=== PATIENT | male | born 1960 | race Caucasian/White ===

== ENCOUNTER → 2017-01-09 | Outpatient (CLI) | payer OTHER, BC ==
[~2017-01-09] MED LIST: ASCO1CAP3 PO; CHOL20009 PO; CYAN100020 PO; FLX10 PO; GABA-112 PO; GLC/500 PO; LOSA100T2 PO; LSN/10125 PO; MULT-506 PO; OXYC15TA49 PO
[2017-01-09 13:03] LABS: ALT/SGPT 30 U/L (12-78); BLOOD UREA NITROGEN 19 mg/dl (7-18); BUN/CREATININE RATIO 17.4 (10-20); CALCIUM 9.1 mg/dl (8.5-10.1); CARBON DIOXIDE 26 mmol/L (21-32); CHLORIDE 104 mmol/L (98-107); CHOLESTEROL 163 mg/dl (0-200); GLUCOSE 97 mg/dl (70-99); POTASSIUM 3.9 mmol/L (3.5-5.1); SODIUM 141 mmol/L (136-145); TRIGLYCERIDES 193 mg/dl (0-150); VERY LOW DENSITY LIPOPROT CALC 39 mg/dl
[2017-01-09 13:14] LABS: ALB/GLOB RATIO 1.2 (0.9-2); ALKALINE PHOSPHATASE 132 U/L (45-117); AST/SGOT 20 U/L (15-37); CHOLESTEROL/HDL RATIO 4.4; HDL CHOLESTEROL 37 mg/dl; LDL CHOLESTEROL CALCULATED 87 mg/dl; PROSTATE SPECIFIC ANTIGEN 0.593 ng/ml (0.000-4.000)
[2017-01-09 13:15] LABS: ESTIMATED AVERAGE GLUCOSE 103 mg/dl; HA1C FLAG Normal (Normal)
[2017-01-09 15:18] LABS: LYME DISEASE AB IGG NEG (NEG); LYME DISEASE AB IGM NEG (NEG)
== END | disposition home or self-care (01) ==
LOC: C.LABBFT 07:32
PROVIDERS: ATTEND Nurse Practitioner
DX: Z00.00 Encounter for general adult medical examination without abnormal findings (principal); M25.569 Pain in unspecified knee; E07.9 Disorder of thyroid, unspecified; R73.01 Impaired fasting glucose; Z12.5 Encounter for screening for malignant neoplasm of prostate

== ENCOUNTER → 2017-03-04 | Day surgery (SDC) | payer BC, OTHER ==
[2017-02-19 07:34] VITALS: BMI 37.0
[~2017-03-04] VITALS: Ht 188 cm; Wt 129.6 kg
[~2017-03-04] MED LIST changes: -FLX10 PO; +LIDOCAINE HCL 2% 2 ML VIAL (20MG/ML) ONE; -LSN/10125 PO; +MIDAZOLAM HCL 1 MG/ML 2ML VIAL ONE; +ONDANSETRON INJ 2 MG/ML 2 ML VIAL ONE; -OXYC15TA49 PO; +PROPOFOL IV EMULSION 10 MG/ML 20 ML VIAL IV ONE; +SODIUM CHLORIDE 0.9% 500ML 500 ML IV ONE
[2017-03-04 10:10] VITALS: Ht 188 cm; Wt 129.6 kg
--- NOTE | 2017-03-04 10:33 | Endo History and Physical ---
History & Physical Date of Service: Mar 04, 2017. Chief Complaint: screening Referring Physician: Regine RAMIREZ History of Present Illness 57 yo CM who presents for screening colonoscopy. Past Surgical History Hx Cardiac Surgery: No Hx Abdominal Surgery: No Hx Post-Op Nausea and Vomiting: No Hx Cancer Surgery: No Hx Thoracic Surgery: No Hx Orthopedic: Yes (RT CTR, LUMBAR DECOMP. FUSION X 2) Hx Urinary Tract Surgery: No Family History Colon CA Social History Smoking Status: Never Smoker Hx Substance Use: No Hx Alcohol Use: Yes (OCCASSIONALLY) Allergies Coded Allergies: Celecoxib (Verified Adverse Reaction, Mild, GI SYMPTOMS, 02/19/17) Current Medications Reported Home Medications Medications Dose Route/Sig Max Daily Dose Days Date Category Vitamin B12 (Cyanocobalamin) 1,000 Mcg Tab 1 Tab PO QAM 02/19/17 Reported Vitamin D (Cholecalciferol) 2,000 Unit Tab 1 Tab PO QAM 02/19/17 Reported Vitamin C (Ascorbic Acid) 500 Mg Cap 1 Cap PO QAM 02/19/17 Reported Neurontin (Gabapentin) 100 Mg Cap 100 Mg PO HS PRN 02/19/17 Reported Glucophage (Metformin Hcl) 500 Mg Tab 500 Mg PO QPM 02/19/17 Reported Glucophage (Metformin Hcl) 500 Mg Tab 2 Tab PO QAM 02/19/17 Reported Hyzaar (Losartan Potassium & Hydrochlo) 1 Tab Tab 1 Tab PO QAM 90 02/19/17 Reported Vital Signs Weight (Kilograms): 129.55 Height (Feet): 6 Height (Inches): 2 Date Time Temp Pulse Resp B/P Pulse Ox O2 Delivery O2 Flow Rate FiO2 03/04/17 10:21 37.4 83 20 120/78 95 Room Air Physical Exam General Appearance: WD/WN, no apparent distress Respiratory/Chest: Auscultation: breath sounds normal Cardiovascular: Heart Auscultation: RRR Abdomen: Bowel Sounds: normal Inspection & Palpation: soft, non-distended, no tenderness, guarding & rebound Assessment and Plan Assessment: 57 yo CM who presents for screening colonoscopy. Plan: Proceed with colonoscopy.
--- NOTE | 2017-03-04 11:17 | GI REPORT ---
Procedure Date: 03/04/2017 10:47 AM Procedure: Colonoscopy Indications: Screening for colorectal malignant neoplasm Medicines: Monitored Anesthesia Care Complications: No immediate complications. Estimated Blood Loss: Estimated blood loss: none. Procedure: Pre-Anesthesia Assessment: - Prior to the procedure, a History and Physical was performed, and patient medications and allergies were reviewed. The patient's tolerance of previous anesthesia was also reviewed. The risks and benefits of the procedure and the sedation options and risks were discussed with the patient. All questions were answered, and informed consent was obtained. Prior Anticoagulants: The patient has taken no previous anticoagulant or antiplatelet agents. ASA Grade Assessment: II - A patient with mild systemic disease. After reviewing the risks and benefits, the patient was deemed in satisfactory condition to undergo the procedure. After I obtained informed consent, the scope was passed under direct vision. Throughout the procedure, the patient's blood pressure, pulse, and oxygen saturations were monitored continuously. The scope was introduced through the anus and advanced to the terminal ileum. The colonoscopy was performed without difficulty. The patient tolerated the procedure well. The quality of the bowel preparation was good. The terminal ileum, ileocecal valve, appendiceal orifice, and rectum were photographed. Findings: A 4 mm polyp was found in the ascending colon. The polyp was sessile. The polyp was removed with a cold snare. Resection and retrieval were complete. Multiple small-mouthed diverticula were found in the sigmoid colon. Non-bleeding internal hemorrhoids were found during retroflexion. The hemorrhoids were small. Impression: - One 4 mm polyp in the ascending colon, removed with a cold snare. Resected and retrieved. - Diverticulosis in the sigmoid colon. - Non-bleeding internal hemorrhoids. Recommendation: - Resume previous diet. - Continue present medications. - Repeat colonoscopy for surveillance based on pathology results. - Return to primary care physician as previously scheduled. Vincent Carrillo DO 03/04/2017 11:16:01 AM This report has been signed electronically. Note Initiated On: 03/04/2017 10:47 AM I attest to the content of the Intraoperative Record and orders documented therein, exceptions below
--- NOTE | 2017-03-04 11:17 | Discharge Instructions ---
Endoscopy Patient Instructions Date / Procedure(s) Performed Mar 04, 2017. Colonoscopy Allergy Information Coded Allergies: Celecoxib (Verified Adverse Reaction, Mild, GI SYMPTOMS, 02/19/17) Discharge Date / Findings Mar 04, 2017. Colon polyp Diverticulosis Internal hemorrhoids Medication Instructions Stopped Medication(s): stopped metformin 3 days ago OK to resume all medications today Reported Home Medications Medications Dose Route/Sig Max Daily Dose Days Date Category Vitamin B12 (Cyanocobalamin) 1,000 Mcg Tab 1 Tab PO QAM 02/19/17 Reported Vitamin D (Cholecalciferol) 2,000 Unit Tab 1 Tab PO QAM 02/19/17 Reported Vitamin C (Ascorbic Acid) 500 Mg Cap 1 Cap PO QAM 02/19/17 Reported Neurontin (Gabapentin) 100 Mg Cap 100 Mg PO HS PRN 02/19/17 Reported Glucophage (Metformin Hcl) 500 Mg Tab 500 Mg PO QPM 02/19/17 Reported Glucophage (Metformin Hcl) 500 Mg Tab 2 Tab PO QAM 02/19/17 Reported Hyzaar (Losartan Potassium & Hydrochlo) 1 Tab Tab 1 Tab PO QAM 90 02/19/17 Reported Provider Instructions Activity Restrictions - No exercising or heavy lifting for 24 hours. - Do not drink alcohol the day of the procedure. - Do not drive a car or operate machinery until the day after the procedure. - Do not make any important decisions or sign important papers in 24 hours after the procedure. Following Day: - Return to full activity which may include returning to work/school. Diet Start your diet with liquids and light foods (jello, soup, juice, toast). Then eat your usual diet if not nauseated. Treatment For Common After Affects For mild abdominal pain, bloating, or excessive gas: - Rest - Eat lightly - Lie on right side Follow-Up Information Follow-up with Regine RAMIREZ as scheduled Anesthesia Information What You Should Know You have had a procedure that required some medicine to reduce anxiety and discomfort. This treatment is called moderate sedation. After receiving the treatment, you may be sleepy, but you will be able to breathe on your own. The effects of the treatment may last for several hours. Follow these instructions along with Activity/Diet recommendations noted above: * Do NOT do anything where dizziness or clumsiness would be dangerous. * Rest quietly at home today, then you can be up and about tomorrow. * Have a responsible person stay with you the rest of today. * You may have had an I.V. today. If so, you may take the dressing off later today. Recommendations Call your doctor if: * Trouble breathing * Continuous vomiting for more than 24 hours * Temperature above 101 degrees * Severe abdominal pain or bloating * Pain not relieved by pain medicine ordered * There is increased drainage or redness from any incision * A large amount of rectal bleeding greater than 2-3 tablespoons. (If you had a polyp/s removed or have hemorrhoids, a small amount of blood - from the rectum is to be expected.) * You have any unanswered questions or concerns. IN THE EVENT OF A SERIOUS EMERGENCY, GO TO THE NEAREST EMERGENCY ROOM Your discharge instructions were prepared by provider Vincent Carrillo. Patient Instructions Signature Page Loyd Allen Patient (or Guardian) Signature/Date: I have read and understand the instructions given to me by my caregivers. Caregiver/RN/Doctor Signature/Date: The above-named patient and/or guardian has received patient instructions on this date. + Original Patient Signature Page (only) stays with chart. Please make copy for patient.
--- NOTE | 2017-03-04 11:22 | Anesthesiology Progress Note ---
Anesthesia Post Op Note Date & Time Mar 04, 2017 at 11:22 Vital Signs Pain Intensity: 0 Vital Signs Past 12 Hours Date Time Temp Pulse Resp B/P Pulse Ox O2 Delivery O2 Flow Rate FiO2 03/04/17 11:17 92 16 116/77 93 Room Air 03/04/17 10:21 37.4 83 20 120/78 95 Room Air Notes Mental Status: alert / awake / arousable, participated in evaluation Pt Amnestic to Procedure: Yes Nausea / Vomiting: adequately controlled Pain: adequately controlled Airway Patency, RR, SpO2: stable & adequate BP & HR: stable & adequate Hydration State: stable & adequate Anesthetic Complications: no major complications apparent Pt doing well.
[2017-03-04 11:47] VITALS: BP 111/84; PULSE 74; O2SAT 94
== END | disposition home or self-care (01) ==
LOC: C.GI 09:50
PROVIDERS: ATTEND Internal Medicine
DX: Z12.11 Encounter for screening for malignant neoplasm of colon (principal); D12.2 Benign neoplasm of ascending colon; K57.30 Diverticulosis of large intestine without perforation or abscess without bleeding; K64.8 Other hemorrhoids; Z98.1 Arthrodesis status; Z88.8 Allergy status to other drugs, medicaments and biological substances

== ENCOUNTER → 2017-07-16 | Outpatient (CLI) | payer OTHER ==
[~2017-07-16] MED LIST changes: -LIDOCAINE HCL 2% 2 ML VIAL (20MG/ML) ONE; -MIDAZOLAM HCL 1 MG/ML 2ML VIAL ONE; -ONDANSETRON INJ 2 MG/ML 2 ML VIAL ONE; -PROPOFOL IV EMULSION 10 MG/ML 20 ML VIAL IV ONE; -SODIUM CHLORIDE 0.9% 500ML 500 ML IV ONE
[2017-07-16 12:34] LABS: ALT/SGPT 32 U/L (12-78); BLOOD UREA NITROGEN 15 mg/dl (7-18); CALCIUM 9.4 mg/dl (8.5-10.1); CARBON DIOXIDE 29 mmol/L (21-32); CHLORIDE 104 mmol/L (98-107); CHOLESTEROL 178 mg/dl (0-200); GLUCOSE 99 mg/dl (70-99); POTASSIUM 3.8 mmol/L (3.5-5.1); SODIUM 139 mmol/L (136-145); TRIGLYCERIDES 316 mg/dl (0-150); VERY LOW DENSITY LIPOPROT CALC 63 mg/dl
[2017-07-16 12:37] LABS: ALB/GLOB RATIO 1.2 (0.9-2); ALKALINE PHOSPHATASE 106 U/L (45-117); AST/SGOT 21 U/L (15-37); CHOLESTEROL/HDL RATIO 5.2; HDL CHOLESTEROL 34 mg/dl; LDL CHOLESTEROL CALCULATED 81 mg/dl
[2017-07-16 12:50] LABS: ESTIMATED AVERAGE GLUCOSE 108 mg/dl; HA1C FLAG Normal (Normal)
== END | disposition home or self-care (01) ==
LOC: C.LABBFT 07:30
PROVIDERS: ATTEND Nurse Practitioner
DX: E78.5 Hyperlipidemia, unspecified (principal); J34.2 Deviated nasal septum; R73.01 Impaired fasting glucose

== ENCOUNTER → 2018-01-22 | Outpatient (CLI) | payer OTHER ==
[2018-01-22 13:03] LABS: HEMOGLOBIN A1C 5.5 % (4.5-5.6)
[2018-01-22 13:16] LABS: ALBUMIN 4.1 gm/dl (3.4-5.0); ALT/SGPT 50 U/L (12-78); BLOOD UREA NITROGEN 16 mg/dl (7-18); CALCIUM 9.1 mg/dl (8.5-10.1); CARBON DIOXIDE 30 mmol/L (21-32); CHOLESTEROL 155 mg/dl (0-200); CREATININE 1.13 mg/dl (0.60-1.40); GLUCOSE 104 mg/dl (70-99); POTASSIUM 4.1 mmol/L (3.5-5.1); SODIUM 140 mmol/L (136-145)
[2018-01-22 13:26] LABS: ALKALINE PHOSPHATASE 89 U/L (45-117); AST/SGOT 27 U/L (15-37); LDL CHOLESTEROL CALCULATED 72 mg/dl; TOTAL PROTEIN 7.3 gm/dl (6.4-8.2)
== END | disposition home or self-care (01) ==
LOC: C.LABBFT 07:08
PROVIDERS: ATTEND Nurse Practitioner
DX: Z12.5 Encounter for screening for malignant neoplasm of prostate (principal); R73.01 Impaired fasting glucose; E78.5 Hyperlipidemia, unspecified; E07.9 Disorder of thyroid, unspecified

== ENCOUNTER → 2018-07-02 | Outpatient (CLI) | payer OTHER ==
[2018-07-02 12:51] LABS: BLOOD UREA NITROGEN 15 mg/dl (7-18); CALCIUM 8.9 mg/dl (8.5-10.1); CARBON DIOXIDE 27 mmol/L (21-32); CHOLESTEROL 126 mg/dl (0-200); CREATININE 1.15 mg/dl (0.60-1.40); GLUCOSE 107 mg/dl (70-99); LDL CHOLESTEROL CALCULATED 56 mg/dl; POTASSIUM 4.2 mmol/L (3.5-5.1); SODIUM 139 mmol/L (136-145)
== END | disposition home or self-care (01) ==
LOC: C.LABBFT 07:36
PROVIDERS: ATTEND Nurse Practitioner
DX: E78.5 Hyperlipidemia, unspecified (principal)

== ENCOUNTER 2023-07-30 08:43 | Observation (INO) ==
--- NOTE | 2023-07-01 10:33 | PAT Medication Instructions ---
Medication Instructions Date of Service July 01, 2023 Home Medications Medication Instructions Recorded tramadol 50 mg tablet 50 - 100 mg PO Q6H PRN pain #90 05/03/20 tabs amlodipine 5 mg tablet 5 mg PO QAM #90 tabs 12/27/22 indomethacin 50 mg capsule 50 mg PO BID PRN bilateral knee 12/27/22 pain #60 caps levothyroxine 25 mcg tablet 25 mcg PO QAM #90 tabs 12/31/22 losartan 100 1 tab PO QAM #90 tabs 12/31/22 mg-hydrochlorothiazide 25 mg tablet simvastatin 20 mg tablet 20 mg PO HS #90 tabs 01/02/23 dulaglutide 0.75 mg/0.5 mL 0.75 mg (0.5 mL) subcut .COMPLEX 01/23/23 subcutaneous pen injector #12 syringes (Trulicity) tadalafil 5 mg tablet 5 mg PO DAILY PRN sexual activity 01/23/23 #60 tabs cholecalciferol (vitamin D3) 25 mcg (1,000 unit) capsule 1,000 units PO QAM ascorbic acid (vitamin C) 500 mg capsule 500 mg PO QAM tramadol 50 mg tablet 50 - 100 mg PO Q6H PRN amlodipine 5 mg tablet 5 mg PO QAM indomethacin 50 mg capsule 50 mg PO BID PRN levothyroxine 25 mcg tablet 25 mcg PO QAM losartan 100 mg-hydrochlorothiazide 25 mg tablet 1 tab PO QAM simvastatin 20 mg tablet 20 mg PO HS dulaglutide 0.75 mg/0.5 mL subcutaneous pen injector (Trulicity) 0.75 mg (0.5 mL) subcut .COMPLEX tadalafil 5 mg tablet 5 mg PO DAILY PRN metformin 500 mg tablet 1,000 mg PO BID Continue as directed dulaglutide 0.75 mg/0.5 mL subcutaneous pen injector (Trulicity) 0.75 mg (0.5 mL) subcut .COMPLEX ASK your surgeon for instructions indomethacin 50 mg capsule 50 mg PO BID PRN DO NOT take the morning of surgery cholecalciferol (vitamin D3) 25 mcg (1,000 unit) capsule 1,000 units PO QAM ascorbic acid (vitamin C) 500 mg capsule 500 mg PO QAM losartan 100 mg-hydrochlorothiazide 25 mg tablet 1 tab PO QAM tadalafil 5 mg tablet 5 mg PO DAILY PRN metformin 500 mg tablet 1,000 mg PO BID Take morning of surgery With a small sip of water, OTHERWISE NOTHING TO EAT OR DRINK AFTER MIDNIGHT: tramadol 50 mg tablet 50 - 100 mg PO Q6H PRN(if needed) amlodipine 5 mg tablet 5 mg PO QAM levothyroxine 25 mcg tablet 25 mcg PO QAM Take evening before surgery tramadol 50 mg tablet 50 - 100 mg PO Q6H PRN(if needed) simvastatin 20 mg tablet 20 mg PO HS metformin 500 mg tablet 1,000 mg PO BID Other Notes If you have any questions please call us at [phone] or [phone] or [phone] or [phone]
--- NOTE | 2023-07-08 14:14 | Anesthesiology Consultation ---
Date of Service July 08, 2023 Assessment & Plan (1) Encounter for pre-operative examination: - Check BSG AM DOS - COVID screening: Per assessment on 07/08: No known COVID-19 positive contacts or current COVID-19 related symptoms. No recent Covid positive test result. - Outpatient joint assessment: Pt currently scheduled for inpatient pathway. If surgeon requests review for outpatient joint pathway, patient is an acceptable candidate for outpatient joint program from anesthesia standpoint. Chart Review Chart Review: Acceptable Risk for Surgery and Patient seen in Pre Admission Testing Teaching & Discussion Pre-Anesthesia Teaching/Discussion Notes: Instructed NPO after midnight before surgery,except medications with 15 cc of water. Medication instructions provided according to the PAT guidelines. History Surgery Operation Date: 07/30/23 08:50 Proposed Procedures p Left Total Knee Arthroplasty - Andres Rasmussen MD Height/Weight Height: 6 ft 2 in Weight: 137.2 kg Allergies Allergy/AdvReac Type Severity Reaction Status Date / Time celecoxib AdvReac Mild GI SYMPTOMS Verified 06/28/23 08:04 lisinopril AdvReac Mild cough Verified 06/28/23 08:04 Medications Home Medications Medication Instructions Recorded Confirmed Last Taken cholecalciferol (vitamin D3) 25 1,000 units PO QAM 05/07/19 06/28/23 03/18/22 mcg (1,000 unit) capsule ascorbic acid (vitamin C) 500 mg 500 mg PO QAM 07/03/19 06/28/23 03/18/22 capsule tramadol 50 mg tablet 50 - 100 mg PO Q6H PRN pain #90 05/03/20 06/28/23 Unknown tabs amlodipine 5 mg tablet 5 mg PO QAM #90 tabs 12/27/22 06/28/23 Unknown indomethacin 50 mg capsule 50 mg PO BID PRN bilateral knee 12/27/22 06/28/23 Unknown pain #60 caps levothyroxine 25 mcg tablet 25 mcg PO QAM #90 tabs 12/31/22 06/28/23 Unknown losartan 100 1 tab PO QAM #90 tabs 12/31/22 06/28/23 Unknown mg-hydrochlorothiazide 25 mg tablet simvastatin 20 mg tablet 20 mg PO HS #90 tabs 01/02/23 06/28/23 Unknown dulaglutide 0.75 mg/0.5 mL 0.75 mg (0.5 mL) subcut .COMPLEX 01/23/23 06/28/23 Unknown subcutaneous pen injector #12 syringes (Trulicity) tadalafil 5 mg tablet 5 mg PO DAILY PRN sexual activity 01/23/23 06/28/23 Unknown #60 tabs metformin 500 mg tablet 1,000 mg PO BID 06/28/23 06/28/23 Unknown Past Medical History Medical History Achilles tendinitis Acquired deviated nasal septum Arthritis Diverticulosis Dyslipidemia Fatty liver Hypertension Hypothyroidism Internal hemorrhoids Type II diabetes mellitus NIDDM Exercise / Class Metabolic Activity II 4-5 Yardwork/Stairs/Walk up hill (one FS (no CP, no SOB)) Past Family History Family History Grandfather (Maternal) Myocardial infarction Grandfather (Paternal) Colorectal cancer Mother Prediabetes Father Prostate cancer Diabetes Denies family history of Ovarian cancer Coronary heart disease Breast cancer Lung cancer Past Surgical History Surgical History History of carpal tunnel surgery of right wrist History of colonoscopy History of lumbar spinal fusion History of tooth extraction Hx of laminectomy decompression (L5-S1) Past Anesthesia History No Hx of Anesthesia Complications and No Family Hx of Anesthesia Complications History of PONV No Hx of PONV and No Hx of Motion Sickness Social History Smoking Status: Never smoker Do You Dip or Chew Tobacco: No Hx Alcohol Use: Yes Alcohol type: beer and hard liquor alcohol intake frequency: a few times a week Hx Substance Use: No substance use type: does not use Review of Systems Patient denies chest pain, shortness of breath, dyspnea on exertion, fever, chills, cough, wheezing, palpitations. Physical Exam Vital Signs VITALS BP 143/80 P 90 TEMP 98.1 SP02 95%RA RESP 18 PHYSICAL Full cervical extension range of motion. Full TMJ range of motion. TMD 4 finger breaths Mallampati Score 2 Dentition: intact, + implant (right lower side) Lungs: clear throughout to auscultation Cardiac: regular rate and rhythm, no murmurs noted Spine: normal Carotid arteries: negative bruit Extremities: no LE edema Lab Results Anesthesia Preop Results Results Anesthesia Widget: WBC 5.5 Thousand/uL (3.8-10.8) 07/01/23 Hgb 13.4 g/dL (13.2-17.1) 07/01/23 Hct 39.8 % (38.5-50.0) 07/01/23 Plt 177 Thousand/uL (140-400) 07/01/23 Na 141 mmol/L (135-146) 07/01/23 K 4.3 mmol/L (3.5-5.3) 07/01/23 Cl 106 mmol/L (98-110) 07/01/23 CO2 25 mmol/L (20-32) 07/01/23 BUN 14 mg/dL (7-25) 07/01/23 Creat 1.03 mg/dL (0.70-1.35) 07/01/23 Glucose Level 173 mg/dL (65-99) H 07/01/23 PT 10.8 Seconds (9.0-12.0) 07/08/23 PTT 24.3 Seconds (21.0-31.0) 07/08/23 INR 1.0 (0.9-1.1) 07/08/23 HA1c 6.1 % of total Hgb (<5.7) H 07/01/23 Blood Type A Positive 07/08/23 Antibody Screen NEGATIVE 07/08/23 Testing Electrocardiogram Date: 07/08/23 NSR at 80bpm. LAD. LVH with QRS widening. PRWP, consider anterior OK vs lead placement vs LVH. Patient reports good functional status without cardiopulmonary limiting complaints at PAT visit 07/08/23* Chest X-Ray Date: 07/08/23 FINDINGS: PA and lateral chest radiographs are compared to study dated 02/27/2012. The cardiomediastinal silhouette is unremarkable. The lungs and pleural spaces are clear. There is no pneumothorax. The bony thorax appears intact. Mild degenerative change is noted in the spine. IMPRESSION: No active disease in the chest.
[~2023-07-30 08:43] MED LIST changes: +ACETAMINOPHEN 500 MG TAB PO SCH; -ASCO1CAP3 PO; +BUPIVACAINE 0.5 % 5 MG/1 ML PF 10ML VIAL ONE; +BUPIVACAINE LIPOSOME/PF 266 MG, BUPIVACAINE/EPINEPHRINE 50 ML, SODIUM CHLORIDE 0.9% PF ... INFIL SCH; -CHOL20009 PO; -CYAN100020 PO; +CeleBREX 200 MG CAP PO SCH; +FAMOTIDINE 20 MG TAB PO SCH; -GABA-112 PO; -GLC/500 PO; -LOSA100T2 PO; +LR 500ML BOLUS, THEN 15ML/HR IV SCH; +LR 60ML/HR IV SCH; +METOCLOPRAMIDE HCL 10 MG TABLET PO SCH; -MULT-506 PO; +ROPIVACAINE 0.5% 5 MG/ML 30 ML VIAL ONE; +Scopolamine 1 MG TDSY TD SCH; +TRANEXAMIC ACID 1,000 MG **IV Intra-op IV SCH; +dexAMETHasone**PF** 10 MG/ML VIAL IV SCH
[2023-07-30] MEDS ORDERED: fentaNYL citrate PF 100 MCG/2 ML VIAL ONE (10:20)
[2023-07-30] MEDS ORDERED: MIDAZOLAM HCL 1 MG/ML 2ML VIAL ONE ×2 (10:20→11:25)
[2023-07-30] MEDS ORDERED: ePHEDrine sulfate 50 MG/ML AMP IV PRN (10:41)
[2023-07-30] MEDS ORDERED: ONDANSETRON INJ 2 MG/ML 2 ML VIAL IV PRN ×2 (10:41→15:25)
[2023-07-30] MEDS ORDERED: fentaNYL citrate PF 100 MCG/2 ML VIAL IV PRN (10:41)
[2023-07-30] MEDS ORDERED: ATROPINE SULFATE 0.1 MG/ML 10ML SYR IV PRN (10:41)
[2023-07-30] MEDS ORDERED: BUPIVACAINE LIPOSOME 1.3% 266 MG/20 ML VIAL ONE (11:08)
[2023-07-30] MEDS ORDERED: SODIUM CHLORIDE 0.9% PF 50 ML VIAL ONE (11:08)
[2023-07-30] MEDS ORDERED: BUPIVACAINE/EPINEPHRINE 0.25% 1:200,000 30 ML VIAL ONE (11:08)
--- NOTE | 2023-07-30 11:11 | History & Physical Bridge Note ---
Date of Service July 30, 2023 History & Physical Bridge Note I have examined the patient, reviewed the History & Physical and in the interval since the performance of the History & Physical I have noted the following changes of clinical significance: no changes noted
[2023-07-30] MEDS ORDERED: LIDOCAINE 2% 2 ML VIAL/AMP(20MG/ML) INFIL ONE (11:54)
[2023-07-30] MEDS ORDERED: PROPOFOL IV EMULSION 10 MG/ML 20 ML VIAL IV ONE ×2 (11:54→12:08)
[2023-07-30] MEDS ORDERED: ONDANSETRON INJ 2 MG/ML 2 ML VIAL ONE (11:56)
--- NOTE | 2023-07-30 13:19 | Operative Report ---
PG Post Operative Report Pre & Post Diagnosis Operation Date: 07/30/23 10:30 Pre-Op Diagnosis: Left Knee Degenerative Joint Disease Post-Op Diagnosis: Left Knee Degenerative Joint Disease I identified the patient and participated in the time-out.: Yes Procedure Operation Date: 07/30/23 10:30 Actual Procedures p Left Total Knee Arthroplasty(Left) - Andres Rasmussen MD Surgeon Andres Rasmussen MD [employer] Guero Kam PA-C Estimated Blood Loss 50 Findings Consistent with Post-Op Diagnosis Specimens Left knee sent for pathology. Anesthesia Type Spinal MAC Complications none Indications Patient is a 63-year-old fairly active gentleman said a long history of bilateral knee pain and discomfort left side greater than right. He failed all conservative measures. X-rays show advanced left knee DJD. He elected proceed with surgical treatment. Description of Procedure Operative implants consist of: 1 Biomet Vanguard size 75 left Po stabilized femoral component. 2. Biomet size 79 tibial tray. 3. 10 mm post stabilized polyethylene insert. 4. 34 x 8 and half all poly patella. The patient was taken the operating room, identified, placed on the operating table in the supine position. All contact areas were appropriately padded. IV antibiotic provided by anesthesia team. A spinal anesthetic and abductor canal block had provided in the holding area. Left thigh tent was then placed. The left lower extremity was then prepped and draped in usual sterile fashion. The left leg was elevated and exsanguinated with use of an Esmarch and the tourniquet was placed at 300 mmHg. An anterior approach the left knee was then performed to longitudinal incision centered over the patella. Sharp dissection was carried through subcutaneous tissue down the extensor mechanism. A medial parapatellar arthrotomy incision was made. Some subperiosteal dissection was carried out medially. The fat pad was resected from Neath patella tendon. The lateral patellofemoral ligament was released. Patella subluxated laterally knee was flexed. The osteophytes were taken off the distal femur. The ACL and PCL were then released from distal femur and the tibia subluxated anteriorly. The external tibial alignment jig was then placed the interface the tibia and adjusted 14 mm medially. Proximal tibial cut was made to move about a millimeter of bone from most deficient aspect medial tibial plateau. Some osteophytes were taken off medial and posterior medially. The tibia sized to a size 79. Attention drawn the femur. The distal femur examined the sharp drill. Intramedullary canal was suction. A left 6 degree femoral cutting block was placed. Distal femoral cut was made to take an additional 3 mm of bone off distal femur. The femur was then sized to a size 75. The AP cutting block was pinned parallel to the epicondylar axis which was 5 degrees of external rotation. Anterior cut, anterior chamfer, posterior cut, posterior chamfer cuts were made. The box cutting guide was placed in a just slight lateral and the box cut was made. The knee was flexed. The remnants of the medial and lateral menisci were excised. The osteophytes taken off the posterior aspect of the femur. A trial femoral component was placed. Tibial tray was pinned in maximum external rotation and the drill and stem punch were used to create defect in proximal tibia for the tibial tray. The knee was then trialed and the 10 mm insert fit most appropriately. Attention drawn the patella. The patella was cleaned of all soft tissues. The patella measured 23 mm in thickness was cut down to 14. It was sized to a size 34 patella. The lug holes were drilled for the 34 patella. The lateral osteophytes removed. Patella button was placed. Knee was taken through range of motion patella tracked nicely with no thumbs test. Attention drawn to placing the permanent components. Nupathe all trial components were removed. Bone plug was placed in the distal femur limit blood loss. Double batch Palacos G cement was mixed. A Biomet Vanguard size 75 left posterior stabilized femoral component, size 79 tibial tray, a 10 mm posterior stabilized polyethylene insert, and a 34 x 8 and half all poly patella were then cemented in place. The knee was brought into full extension till cement hardened. Final cement check was then performed. The pericapsular tissues were injected with total of 100 cc of combination of 20 of Exparel, 30 cc normal saline, 50 cc of quarter percent Marcaine with epinephrine. Patient did receive 1 g tranexamic acid. The tourniquet was then let down for final tourniquet time 65 minutes. Hemostasis assured use electrocautery. The extensor mechanism then closed with combination 1 PDS suture #1 Vicryl sutures in [id number] fashion. Extensor mechanism checked found to be intact and the subcutaneous tissues then closed with 2-0 Dexon suture in a buried interrupted fashion skin was closed skin brandan. Leg was then cleaned and dried and sterile dressed with Xeroform, 4 x 4's, sterile cast padding, Leonardo bandage were applied. Patient then transferred to the recovery room in stable condition. Patient tolerated procedure well and there were no complications. Guero Kam, my physician catering administrative assistant, was present for the entire procedure. His assistance was essential and required for appropriate patient positioning, prepping and draping, surgical exposure, performing the technical details of the operation, placement the implants, closure of the wound, and placement of the sterile bandage. I attest to the content of the Intraoperative Record and any orders documented therein. Any exceptions are noted below.
--- NOTE | 2023-07-30 14:01 | Anesthesiology Progress Note ---
Date of Service July 30, 2023 Anesthesia Post Procedure Vital Signs Vital Signs: Temp Pulse Pulse Resp BP Pulse Ox O2 Del Method 07/30/23 13:55 98.1 F 90 14 131/84 96 Room Air 07/30/23 13:45 94 H 16 138/81 95 Room Air 07/30/23 13:35 94 H 20 140/85 99 Oxymask 07/30/23 13:25 102 H 16 131/92 99 Oxymask 07/30/23 13:15 97.2 F L 100 H 16 133/80 99 Oxymask 07/30/23 09:05 98.2 F 84 18 169/93 H 97 Room Air O2 Flow Rate 07/30/23 13:55 07/30/23 13:45 07/30/23 13:35 3 07/30/23 13:25 5 07/30/23 13:15 5 07/30/23 09:05 Transfer of Care Handoff Completed per policy Notes Mental Status: alert / awake / arousable and participated in evaluation Patient Amnestic to Procedure: Yes Nausea / Vomiting: adequately controlled Pain: adequately controlled Airway Patency, RR, SpO2: stable & adequate BP & HR: stable & adequate Hydration State: stable & adequate Neuraxial Anesthesia: was administered and sensory block is resolving Anesthetic Complications: no major complications apparent and Pt Satisfied with anesthetic care
--- NOTE | 2023-07-30 14:49 | XRay Report ---
XR knee LT 1 or 2V routine CLINICAL HISTORY: Postoperative evaluation. COMPARISON: Knee radiographs February 11, 2023. FINDINGS: Alignment of the total left knee arthroplasty is anatomic. There is no periprosthetic frac ture or unexpected radiopaque foreign body. There are skin brandan. IMPRESSION: Expected findings following total left knee arthroplasty. ACT 112: Negative or not required by law. Electronically signed by: Sabas Bazzi M.D. 07/30/2023 2:47 PM
[2023-07-30] MEDS ORDERED: ALUMINUM/MAGNESIUM SUSP 30 ML UDC PO PRN (15:25)
[2023-07-30] MEDS ORDERED: GLUCOSE 40% GEL 15 GM TUBE PO PRN (15:25)
[2023-07-30] MEDS ORDERED: DEXTROSE 50% 50 ML SYRINGE IV PRN (15:25)
[2023-07-30] MEDS ORDERED: NON-FORMULARY MEDICATION (Tadalafil 5 mg tablet) PO PRN (15:25)
[2023-07-30] MEDS ORDERED: diphenhydrAMINE Capsule 25 MG CAP PO PRN (15:25)
[2023-07-30] MEDS ORDERED: MAGNESIUM HYDROXIDE SUSP 30 ML UDC PO PRN (15:25)
[2023-07-30] MEDS ORDERED: NALOXONE HCL 0.4 MG/1 ML VIAL/CARP IV PRN (15:25)
[2023-07-30] MEDS ORDERED: PHARMACY GLYCEMIC MGMT CONSULT PRN (15:25)
[2023-07-30] MEDS ORDERED: GLUCOSE 10 TAB/TUBE PO PRN (15:25)
[2023-07-30] MEDS ORDERED: GLUCAGON FOR INJ 1 MG VIAL SQ PRN (15:25)
[2023-07-30] MEDS ORDERED: bisacodyL 10 MG SUPP PR PRN (15:25)
[2023-07-30] MEDS ORDERED: CARBOHYDRATES FOR HYPOGLYCEMIA PO PRN (15:25)
[2023-07-30] MEDS ORDERED: METOCLOPRAMIDE HCL INJ 5 MG/ML 2 ML VIAL IV PRN (15:25)
[2023-07-30] MEDS ORDERED: NON-FORMULARY MEDICATION (Tirzepatide [Mounjaro] 5 mg/0.5 mL pen injector) SQ SCH (15:25)
[2023-07-30] MEDS: KETOROLAC 30 MG/ML VIAL IV SCH ×2 (16:22→21:06)
[2023-07-30] MEDS: Scopolamine CHECK PATCH PLACEMENT SCH ×2 (16:22→23:00)
[2023-07-30] MEDS: ACETAMINOPHEN 500 MG TAB PO SCH ×2 (16:22→21:05)
[2023-07-30] MEDS: SODIUM CHLORIDE 0.9% 1,000 ML IV SCH (16:22)
[2023-07-30] MEDS ORDERED: LANTUS PER UNIT CHARGE SC ONE (16:30)
[2023-07-30] MEDS: INSULIN ASPART PER UNIT CHARGE SC SCH ×2 (17:34→21:05)
[2023-07-30] MEDS: ASCORBIC ACID 500 MG TAB PO SCH (17:35)
[2023-07-30] MEDS: ceFAZolin 2000MG 2,000 MG/15 ML SYR IV SCH (18:42)
[2023-07-30] MEDS ORDERED: TRANEXAMIC ACID / 0.7% NACL 1,000 MG/100 ML BAG IV SCH (19:00)
[2023-07-30] MEDS: oxyCODONE HCL IR 5 MG TAB (IMMEDIATE RELEASE) PO PRN (20:01)
[2023-07-30] MEDS: ASPIRIN 81 MG ECTAB PO SCH (20:03)
[2023-07-30] MEDS: DOCUSATE SODIUM 100 MG CAP PO SCH (20:03)
[2023-07-30] MEDS ORDERED: SIMVASTATIN 20 MG TAB PO SCH (21:00)
[2023-07-30] MEDS ORDERED: SENNA 8.6 MG TAB PO SCH ×2 (21:00)
[2023-07-30] MEDS: HYDROmorphone INJ 0.5 MG/0.5 ML SYR IV PRN (22:58)
[2023-07-31] MEDS: SODIUM CHLORIDE 0.9% 1,000 ML IV SCH (02:08)
[2023-07-31] MEDS: KETOROLAC 30 MG/ML VIAL IV SCH ×2 (03:43→10:23)
[2023-07-31] MEDS: ceFAZolin 2000MG 2,000 MG/15 ML SYR IV SCH (03:43)
[2023-07-31] MEDS: ACETAMINOPHEN 500 MG TAB PO SCH (05:50)
[2023-07-31] MEDS: oxyCODONE HCL IR 5 MG TAB (IMMEDIATE RELEASE) PO PRN (05:56)
[2023-07-31] MEDS ORDERED: LEVOTHYROXINE SODIUM 25 MCG TABLET PO SCH (06:30)
[2023-07-31 06:59] LABS: Hematocrit (blood only) 32.1 % (42.0-52.0); Hemoglobin 11.2 g/dl (14.0-18.0); Mean Corpuscular Hemoglobin 30.9 pg (25.0-34.0); Mean Corpuscular Hgb Conc 34.9 g/dL (32.0-36.0); Mean Corpuscular Volume 88.7 fL (80.0-100.0); Mean Platelet Volume 10.1 fL (9.4-12.4); Platelet Count 171 K/uL (130-400); RDW Coefficient of Variation 12.9 % (11.5-14.5); RDW Standard Deviation 41.8 fL (36.4-46.3); Red Blood Count 3.62 M/uL (4.70-6.10); White Blood Count 12.69 K/ul (4.8-10.8)
[2023-07-31 07:31] LABS: BUN Creatinine Ratio 18.4 (10-20); Calcium 8.9 mg/dl (8.6-10.3); Creatinine Clr Calc Pharmacy 97.2 ml/min; Est GFR (African American) 78.9 ml/min; Est GFR (Non-African American) 68.1 ml/min; Potassium 3.6 mmol/L (3.5-5.1)
[2023-07-31] MEDS ORDERED: dexAMETHasone 10 MG in SYRINGE 0 ML IV SCH (08:00)
[2023-07-31] MEDS: INSULIN ASPART PER UNIT CHARGE SC SCH ×2 (08:11→12:05)
[2023-07-31] MEDS: ASPIRIN 81 MG ECTAB PO SCH (08:13)
[2023-07-31] MEDS: DOCUSATE SODIUM 100 MG CAP PO SCH (08:14)
[2023-07-31] MEDS: ASCORBIC ACID 500 MG TAB PO SCH (08:15)
[2023-07-31] MEDS: Scopolamine CHECK PATCH PLACEMENT SCH (08:16)
[2023-07-31] MEDS ORDERED: CHOLECALCIFEROL 1,000 UNITS 25 MCG TAB PO SCH (09:00)
[2023-07-31] MEDS ORDERED: TAMSULOSIN HCL 0.4 MG CAP PO SCH (09:00)
[2023-07-31] MEDS ORDERED: amLODIPine BESYLATE 5 MG TAB PO SCH (09:00)
[2023-07-31] MEDS ORDERED: NON-FORMULARY MEDICATION (Ascorbic Acid (Vitamin C) 500 mg capsule) PO SCH (09:00)
[2023-07-31] MEDS ORDERED: MULTIVITAMIN TAB PO SCH (09:00)
[2023-07-31] MEDS ORDERED: LOSARTAN/HCTZ 50/12.5MG TAB PO SCH (09:00)
[2023-07-31] MEDS: HYDROmorphone INJ 0.5 MG/0.5 ML SYR IV PRN (09:33)
--- NOTE | 2023-07-31 11:26 | Pharmacy Report ---
Pharmacy Glycemic Short Note 2 - Date of Service July 31, 2023 - Glycemic Short BSG Results (Last 24 hours): 07/30/23 07/30/23 07/30/23 13:33 16:46 20:19 Glucose POC Glucose 176 H 161 H 154 H 07/31/23 07/31/23 06:11 07:40 Glucose 126 H POC Glucose 139 H OUTPATIENT ANTIDIABETIC REGIMEN: * Metformin 1g PO BID * Mounjaro 5mg SQ Weekly * A1c 6.1% 07/01/23 ASSESSMENT: * 63 yo Male, POD1 L TKA, controlled diabetic on medications listed above, given 30 units Lantus yesterday to cover dexamethasone 10mg IV, patient received an additional dose of dexamethasone 10mg IV today, lantus dose continued. Likely will not need lantus tomorrow, or a reduced dose, no further steroids ordered. * Blood sugars well controlled, no other changes needed at this time. PLAN FOR INPATIENT GLYCEMIC CONTROL: * Hold outpatient diabetes medications * Basal insulin * Lantus 30 units SQ today with IV Dexamethasone * Bolus insulin * NovoLog per scale ACHS or Q6hrs while NPO * Goal Range: Low 110 mg/dL - High 140 mg/dL * Correction Factor: 15 mg/dL/unit * Nutritional / Prandial insulin per carb ratio of 1 unit per 5 grams CHO consumed
[2023-07-31] MEDS ORDERED: LANTUS PER UNIT CHARGE SC ONE (11:30)
--- NOTE | 2023-07-31 12:57 | Orthopedic Progress Note ---
Date of Service July 31, 2023 Assessment & Plan (1) Status post left knee replacement: 63-year-old gentleman postop day 1 from left knee replacement doing pretty well. Pain is controlled. Therapy went well. He is neurologically intact. Plan: 1. DVT prophylaxis including thigh-high teds, SCDs, aspirin twice a day. 2. Pain control doing well with current pain regimen. 3. PT/OT weight-bear as tolerated total knee protocol. 4. Disposition plan to discharge home with home health later today. Subjective . 63-year-old gentleman postop day 1 from a left knee replacement. He is doing pretty well. Moderate amount of pain but nothing unusual. No chest pain or shortness of breath. Not feeling dizzy or lightheaded. Therapy went pretty well today. He is hoping to go home. Review of Systems All systems reviewed & are unremarkable except as noted in HPI & below. Physical Exam . Exam shows a pleasant alert gentleman. He was ambulating the hallways well visit him at this afternoon. Examination left knee reveals the dressing to be in place. There is a little bit of bloody drainage on the anterior aspect. He can dorsiflex and plantarflex his foot appropriately. He is neurologically intact. Respiratory normal respiratory effort, lungs clear to auscultation Cardiovascular RRR, no murmur, no edema Gastrointestinal (Abdomen) normal bowel sounds, soft, nontender, no hepatosplenomegaly Results & Data Results & Data Laboratory Results . Hemoglobin is 11.2. Hematocrit 32.1. Electrolytes are stable. Diagnostic Findings . PG Care Time/CCT Total # of Minutes Spent Total Time Spent with Patient: Total time spent is greater than 50% in coordination of care (as documented) at patient's floor/unit and/or counseling patient: Coding Level of Care Code 47658 Post Operative Follow-Up Diagnoses Status post left knee replacement Z96.652
--- NOTE | 2023-08-06 06:39 | Discharge Summary ---
Date of Service August 06, 2023 Discharge Data Procedures Performed Operation Date: 07/30/23 10:30 Actual Procedures p Left Total Knee Arthroplasty(Left) - Andres Rasmussen MD Hospital Course (1) Status post left knee replacement: This is a 63 year old patient admitted on 07/30/23 and underwent total knee arthroplasty. He tolerated the procedure well and there were no complications. Transferred to the PACU post op and later to the orthopedic floor for further care. He was given ancef for antibiotic prophylaxis. He was also given SUNI stockings, SCDs, and aspirin for DVT prophylaxis. Hemoglobin, hematocrit, and vital signs were monitored during his hospital stay and remained stable. Did not require any blood transfusions. There were no complications during his hospital stay. By post op day #1 the patient was tolerating a regular diet, pain was reasonably controlled with oral pain medicine, and he was participating in physical therapy. On post op day #1 the patient was discharged home and set up with home health care. He was given printed discharge instructions including prescriptions for extra strength tylenol, aspirin, cefadroxil, ketorolac, zofran, senokot, and oxycodone. Continue physical therapy, weight bearing as tolerated. Continue SUNI stockings. Follow up approximately 2 weeks post op or sooner if there are problems or concerns. Coding Level of Care Code None Diagnoses Status post left knee replacement Z96.652
== END 2023-07-31 13:25 | disposition home health service (06) ==
LOC: 3E 08:43 → ASU 08:43

== ENCOUNTER 2024-11-03 08:49 | Inpatient (IN) ==
--- NOTE | 2024-11-03 09:16 | Emergency Department Note ---
Impression & Plan Foraminal stenosis of lumbar region, Lumbar radiculopathy, Intractable low back pain ED Provider Note CHIEF COMPLAINT: Back pain HISTORY OF PRESENT ILLNESS: This 64-year-old male patient presents to the emergency department via private vehicle for evaluation of left back pain. He reports the back pain radiates into the left groin, and travels down the anterior thigh to the knee. He does report a history of sciatica. He reports history of previous paraspinous muscle spasms, as well as previous lumbar laminectomy. He reports no recent injury. He reports noting that he had weakness when attempting to urinate, and feeling the sense that he was not able to push appropriately to relieve his bladder. He reports no abdominal pain, nausea, vomiting. He reports no fever. He reports no weakness in the lower extremities, or loss of sensation. He is neurovascularly intact. REVIEW OF SYSTEMS: A review of systems was performed with positives and pertinent negatives listed in the history of present illness. All other systems were reviewed and are negative. ALLERGIES: See below MEDICATIONS: See below PMH: See below PHYSICAL EXAM: VITALS: Vitals are noted on the nurse's note and reviewed by myself. Vital signs stable. GENERAL: 64-year-old male, in no acute distress, nondiaphoretic, well-developed well-nourished. SKIN: The skin was without rashes, erythema, edema, or bruising. HEAD: Normocephalic atraumatic. HEART: Regular rate and rhythm without murmurs gallops or rubs. LUNGS: Clear to auscultation bilaterally without wheezes, rales or rhonchi. No retractions or accessory muscle use. ABDOMEN: Positive bowel sounds x 4. Soft, nontender, without masses or organomegaly. Marx sign negative. No guarding or rebound tenderness. MUSCULOSKELETAL: Bilateral lower extremity strength 5/5, positive straight leg raise left. Sensation intact to dull and sharp bilaterally, DP pulses intact bilaterally. TTP left lumbar paraspinous region, no palpable spasm present. NEURO: Patient was alert and oriented to person place and time. No focal neurological deficits. MEDICAL DECISION MAKING: The patient is a pleasant 64-year-old male who arrives to the emergency department for evaluation of the above-stated complaint. A saline lock was established, CBC, CMP, lipase, and urinalysis were obtained. CBC shows no leukocytosis, with a stable hemoglobin and hematocrit, CMP is unremarkable, lipase negative, urinalysis negative for infection. I discussed MRI imaging with the patient, who stated he would likely have a very difficult time completing the imaging due to claustrophobia, and inability to raise his arms over his head. We decided CT imaging of the lumbar spine would be beneficial, and likely provide the information we need for further evaluation and consultation with orthopedic spine. CT imaging of the abdomen and pelvis was included to rule out intra-abdominal process, which was negative. CT imaging of the lumbar spine does show severe central canal stenosis with bilateral foraminal narrowing at L2-L3. There appears to be no evidence of hardware complication. The patient was provided IV dexamethasone, Toradol, morphine 4 mg x 2, oral cyclobenzaprine, and topical Lidoderm for pain control. He reports after medications, pain is still an 8/10. I spoke with Dr. Daley, who performed his previous lumbar laminectomy who stated he would be happy to consult the patient with admission to the hospital for intractable low back pain. The patient was admitted to the [facility] hospitalist group for further evaluation and workup, including lumbar MRI. Please refer to Dr. Pittman's documentation for further patient workup and care. DIFFERENTIAL DIAGNOSIS: Musculoskeletal, disc herniation, fracture, metastatic disease, cord compression, discitis, sciatica, cauda equina, infection, aortic disease, renal colic, gastrointestinal, as well as other pathologies. The chart was completed utilizing [employer] Speech voice recognition software. Grammatical errors, random word insertions, pronoun errors, and incomplete sentences are an occasional consequence of this system due to software limitations, ambient noise, and hardware issues. Any formal questions or concerns about the content, text, or information contained within the body of this dictation should be directly addressed to the physician for clarification. Past Med/Surg History Problem List (Updated 11/03/24 @ 19:37 by JAMES Hernandez) Intractable low back pain (Acute) Difficulty urinating Hypokalemia Dyslipidemia Hypertension Per records Hypothyroidism Type II diabetes mellitus Foraminal stenosis of lumbar region (Acute) Encounter for pre-operative examination Allergic rhinitis (Acute) Inhibited sexual excitement (Acute) Internal hemorrhoids (Acute) Lumbar radiculopathy (Acute) Vitamin D deficiency (Acute) Medical History Diverticulosis Osteoarthritis Chronic back pain Obesity Acquired deviated nasal septum Per records Patient unaware Hx of colonic polyps Fatty liver Arthritis Achilles tendinitis B/L feet, occasional flares Surgical History Hx of colonoscopy with polypectomy History of arthroplasty of left knee (07/30/23) History of carpal tunnel surgery of right wrist History of lumbar spinal fusion (~2006) History of tooth extraction Hx of laminectomy (~2011) Decompression (L5-S1) + rods/screws Family History Grandfather (Maternal) Myocardial infarction Grandfather (Paternal) Colorectal cancer Mother Prediabetes Father Prostate cancer Diabetes Denies family history of Ovarian cancer Coronary heart disease Breast cancer Lung cancer Social History Smoking Status: Never smoker Second Hand Exposure: No; Do You Dip or Chew Tobacco: No; Tobacco Cessation Education Requested by Patient: No Hx Alcohol Use: Yes Alcohol type: beer and hard liquor Hx Substance Use: No Preferred Language: Bengali Communication Ability: Effective Hearing Ability: Normal Clinical Team Lead Required: No Beliefs That Will Affect Care: None marital status: Current Living Situation: Spouse current occupational status: retired Other Information That Helps Us Care for You: No Feels Safe at Home: Yes Safety Concerns: Feels Safe At This Time Childhood Exposure to Second-Hand Smoke: Yes Diet: regular caffeine: Yes Dental Care, Regularly: Yes Physical Activity Frequency: Does not Exercise Seatbelt Use: always Sunscreen Use: No Assistive Devices: Glasses Allergies Allergies Allergy/AdvReac Type Severity Reaction Status Date / Time celecoxib AdvReac Mild GI symptoms Verified 11/03/24 14:37 lisinopril AdvReac Mild Cough Verified 11/03/24 14:37 Home Meds Home Medications Medication Instructions Recorded Confirmed cholecalciferol (vitamin D3) 25 1,000 units PO QAM 05/07/19 11/03/24 mcg (1,000 unit) capsule ascorbic acid (vitamin C) 500 mg 500 mg PO QAM 07/03/19 11/03/24 capsule amoxicillin 500 mg tablet 2,000 mg PO ONCE PRN dental 10/20/24 11/03/24 procedures pasogsudhbic-cnx-jexqd acid-vit 1 tab PO DAILY 10/20/24 11/03/24 K-lycop 400 mcg-20 mcg-370 mcg tablet (Men's 50 Plus Multivitamin) rosuvastatin 10 mg tablet 10 mg PO HS 10/20/24 11/03/24 sennosides 8.6 mg tablet (Senokot) 8.6 mg PO BID PRN prevent 10/20/24 11/03/24 constipation tirzepatide 5 mg/0.5 mL 5 mg subcut WK 10/20/24 11/03/24 subcutaneous pen injector vitamin B complex 1 tab PO DAILY 10/20/24 11/03/24 metformin 500 mg tablet See Rx Instructions .Route .COMPLEX 11/03/24 11/03/24 Previous Rx's Medication Instructions Recorded ondansetron 4 mg disintegrating 4 mg PO Q8 PRN nausea #20 tabs 07/28/23 tablet amlodipine 5 mg tablet 5 mg PO QAM #90 tabs 11/11/23 losartan 100 1 tab PO QAM #90 tabs 12/05/23 mg-hydrochlorothiazide 25 mg tablet levothyroxine 25 mcg tablet 25 mcg PO QAM #90 tabs 12/09/23 tadalafil 5 mg tablet 5 mg PO DAILY PRN sexual activity 03/30/24 #60 tabs tramadol 50 mg tablet 50 mg PO Q6H PRN pain #60 tabs 09/15/24 tizanidine 2 mg tablet 2 mg PO Q8H PRN muscle spasticity 09/30/24 #30 tabs Results & Data (ED) Vital Signs Vital Signs - 24 hr 11/03/24 08:55 11/03/24 10:51 11/03/24 11:00 Temperature 36.1 C L Temperature Source Temporal Artery Scan Pulse Rate 89 74 77 Pulse Rate [Apical] Pulse Rate from SpO2 Sensor 75 77 Respiratory Rate 20 18 16 Respiratory Effort / Characteristics Non-Labored Spontaneous Respiratory Depth Normal Respiratory Pattern Blood Pressure 176/102 H Blood Pressure [Right Arm] Blood Pressure Mean 126 Blood Pressure Mean [Right Arm] Blood Pressure Position [Right Arm] Pulse Oximetry 96 92 95 Oxygen Delivery Method Room Air Sepsis Recent Fever Within 48 Hours No Sepsis New/Unexplained Change in Mental Status N/A Sepsis Action Taken by Nursing No Action Required 11/03/24 11:00 11/03/24 11:00 11/03/24 11:24 Temperature Temperature Source Pulse Rate 76 Pulse Rate [Apical] Pulse Rate from SpO2 Sensor 76 Respiratory Rate 13 Respiratory Effort / Characteristics Respiratory Depth Respiratory Pattern Blood Pressure 138/80 138/80 Blood Pressure [Right Arm] Blood Pressure Mean 110 110 Blood Pressure Mean [Right Arm] Blood Pressure Position [Right Arm] Pulse Oximetry 91 Oxygen Delivery Method Sepsis Recent Fever Within 48 Hours Sepsis New/Unexplained Change in Mental Status Sepsis Action Taken by Nursing 11/03/24 11:30 11/03/24 11:33 11/03/24 11:48 Temperature Temperature Source Pulse Rate 81 76 Pulse Rate [Apical] Pulse Rate from SpO2 Sensor 81 75 Respiratory Rate 12 10 L Respiratory Effort / Characteristics Respiratory Depth Respiratory Pattern Blood Pressure 144/71 H Blood Pressure [Right Arm] Blood Pressure Mean 89 Blood Pressure Mean [Right Arm] Blood Pressure Position [Right Arm] Pulse Oximetry 91 94 Oxygen Delivery Method Sepsis Recent Fever Within 48 Hours Sepsis New/Unexplained Change in Mental Status Sepsis Action Taken by Nursing 11/03/24 12:01 11/03/24 12:02 11/03/24 12:03 Temperature Temperature Source Pulse Rate 74 Pulse Rate [Apical] 74 Pulse Rate from SpO2 Sensor Respiratory Rate 18 Respiratory Effort / Characteristics Non-Labored Spontaneous Respiratory Depth Normal Respiratory Pattern Regular Blood Pressure 147/87 H Blood Pressure [Right Arm] 147/87 H Blood Pressure Mean 115 Blood Pressure Mean [Right Arm] 107 Blood Pressure Position [Right Arm] Lying Pulse Oximetry 97 Oxygen Delivery Method Room Air Sepsis Recent Fever Within 48 Hours Sepsis New/Unexplained Change in Mental Status Sepsis Action Taken by Nursing 11/03/24 12:03 11/03/24 12:27 11/03/24 12:30 Temperature Temperature Source Pulse Rate 73 77 Pulse Rate [Apical] Pulse Rate from SpO2 Sensor 73 81 Respiratory Rate 11 L 15 Respiratory Effort / Characteristics Respiratory Depth Respiratory Pattern Blood Pressure 139/81 Blood Pressure [Right Arm] Blood Pressure Mean 100 Blood Pressure Mean [Right Arm] Blood Pressure Position [Right Arm] Pulse Oximetry 96 94 Oxygen Delivery Method Sepsis Recent Fever Within 48 Hours Sepsis New/Unexplained Change in Mental Status Sepsis Action Taken by Nursing 11/03/24 12:36 11/03/24 13:00 11/03/24 13:00 Temperature Temperature Source Pulse Rate 75 84 Pulse Rate [Apical] Pulse Rate from SpO2 Sensor 76 85 Respiratory Rate 11 L 10 L Respiratory Effort / Characteristics Respiratory Depth Respiratory Pattern Blood Pressure 146/79 H Blood Pressure [Right Arm] Blood Pressure Mean 97 Blood Pressure Mean [Right Arm] Blood Pressure Position [Right Arm] Pulse Oximetry 95 93 Oxygen Delivery Method Sepsis Recent Fever Within 48 Hours Sepsis New/Unexplained Change in Mental Status Sepsis Action Taken by Nursing 11/03/24 13:00 11/03/24 13:51 11/03/24 13:57 Temperature Temperature Source Pulse Rate 90 72 Pulse Rate [Apical] Pulse Rate from SpO2 Sensor 89 72 Respiratory Rate 18 19 Respiratory Effort / Characteristics Respiratory Depth Respiratory Pattern Blood Pressure 146/79 H Blood Pressure [Right Arm] Blood Pressure Mean 97 Blood Pressure Mean [Right Arm] Blood Pressure Position [Right Arm] Pulse Oximetry 97 97 Oxygen Delivery Method Sepsis Recent Fever Within 48 Hours Sepsis New/Unexplained Change in Mental Status Sepsis Action Taken by Nursing 11/03/24 14:00 Temperature Temperature Source Pulse Rate Pulse Rate [Apical] Pulse Rate from SpO2 Sensor Respiratory Rate Respiratory Effort / Characteristics Respiratory Depth Respiratory Pattern Blood Pressure 150/84 H Blood Pressure [Right Arm] Blood Pressure Mean 107 Blood Pressure Mean [Right Arm] Blood Pressure Position [Right Arm] Pulse Oximetry Oxygen Delivery Method Sepsis Recent Fever Within 48 Hours Sepsis New/Unexplained Change in Mental Status Sepsis Action Taken by [facility] Medications Current Medication List: was personally reviewed by me Laboratory Data Attestation: I reviewed the patient's lab results. 11/03/24 09:44 11/03/24 09:44 Lab Results 11/03/24 11/03/24 Range/Units 09:44 12:00 WBC 6.02 (4.8-10.8) K/ul RBC 4.54 L (4.70-6.10) M/uL Hgb 13.9 L (14.0-18.0) g/dl Hct 39.6 L (42.0-52.0) % MCV 87.2 (80.0-100.0) fL MCH 30.6 (25.0-34.0) pg MCHC 35.1 (32.0-36.0) g/dL RDW Std Deviation 41.1 (36.4-46.3) fL RDW Coeff of [place] 12.9 (11.5-14.5) % Plt Count 206 (130-400) K/uL MPV 9.7 (9.4-12.4) fL Immature Gran % (Auto) 0.7 % Neut % (Auto) 68.0 % Lymph % (Auto) 19.8 % [place] % (Auto) 9.8 % Eos % (Auto) 1.0 % Baso % (Auto) 0.7 % Neut # (Auto) 4.10 (1.40-6.50) K/uL Lymph # (Auto) 1.19 L (1.20-3.40) K/uL [place] # (Auto) 0.59 (0.11-0.59) K/uL Eos # (Auto) 0.06 (0.00-0.50) K/uL Baso # (Auto) 0.04 (0.00-0.20) K/uL Immature Gran # (Auto) 0.04 (0.01-0.20) K/uL Sodium 138 (136-145) mmol/L Potassium 3.7 (3.5-5.1) mmol/L Chloride 104 (98-107) mmol/L Carbon Dioxide 24 (21-32) mmol/L Anion Gap 10 (3-11) BUN 13 (6-23) mg/dl Creatinine 1.02 (0.6-1.4) mg/dl Est Cr Clr Drug Dosing 102.2 ml/min eGFR 82.07 BUN/Creatinine Ratio 12.7 (10-20) Glucose 106 H (70-99(Fasting)) mg/dl Calcium 10.0 (8.6-10.3) mg/dl Total Bilirubin 0.8 (0.2-1.0) mg/dl AST 20 (13-39) U/L ALT 19 (7-52) U/L Alkaline Phosphatase 88 (34-104) U/L Total Protein 6.9 (6.0-8.3) gm/dl Albumin 4.5 (3.4-5.0) gm/dl Globulin 2.4 L (2.5-4.0) gm/dl Albumin/Globulin Ratio 1.9 (0.9-2) Lipase 67 (11-82) U/L Urine Color Dark Yellow Urine Appearance Clear (Clear) Urine pH 6.0 (4.5-7.5) Ur Specific [place] 1.012 (1.000-1.030) Urine Protein Negative (Negative) Urine Glucose (UA) Negative (Negative) Urine Ketones Negative (Negative) Urine Blood Negative (Negative) Urine Nitrite Negative (Negative) Urine Bilirubin Negative (Negative) Urine Urobilinogen Negative (Negative) Ur Leukocyte Esterase Negative (Negative) Administered Medications Ketorolac Tromethamine (Ketorolac Tromethamine 15 Mg/Ml Vial) 15 mg IV Q6H PRN PRN Reason: Pain Stop: 11/08/24 18:09 Last Admin: 11/03/24 18:30 Dose: 15 mg Documented By: MERCEDEZ Discontinued Medications Cyclobenzaprine HCl (Cyclobenzaprine Hcl 10 Mg Tab) 10 mg PO NOW STA Stop: 11/03/24 09:26 Last Admin: 11/03/24 09:41 Dose: 10 mg Documented By: JOHNATHAN Dexamethasone Sodium Phosphate (DexamethasonePf 10 Mg/Ml Vial) 10 mg IV NOW ONE Stop: 11/03/24 09:26 Last Admin: 11/03/24 09:41 Dose: 10 mg Documented By: JOHNATHAN Ketorolac Tromethamine (Ketorolac Tromethamine 15 Mg/Ml Vial) 15 mg IV NOW ONE Stop: 11/03/24 09:26 Last Admin: 11/03/24 10:03 Dose: 15 mg Documented By: ROE Lidocaine (Lidocaine 5% 1 Patch) 1 patch TD NOW STA Stop: 11/03/24 09:26 Last Admin: 11/03/24 09:41 Dose: 1 patch Documented By: JOHNATHAN Lorazepam (Lorazepam 2 Mg/1 Ml Vial) 0.5 mg IV NOW ONE Stop: 11/03/24 15:21 Last Admin: 11/03/24 17:05 Dose: 0.5 mg Documented By: MERCEDEZ Morphine Sulfate (Morphine Sulfate 4 Mg/Ml 1 Ml Carp\Vial) 4 mg IV NOW STA Stop: 11/03/24 10:37 Last Admin: 11/03/24 10:39 Dose: 4 mg Documented By: JOHNATAHN Morphine Sulfate (Morphine Sulfate 4 Mg/Ml 1 Ml Carp\Vial) 4 mg IV NOW STA Stop: 11/03/24 13:15 Last Admin: 11/03/24 13:23 Dose: 4 mg Documented By: MERCEDEZ Potassium Chloride (Potassium Chloride 10 Meq Tabcr) 30 meq PO NOW STA Stop: 11/03/24 15:55 Last Admin: 11/03/24 16:27 Dose: 30 meq Documented By: MERCEDEZ Imaging Data Attestation: I personally reviewed and interpreted this imaging study as follows: Radiologist's Impression: Abdomen/Pelvis CT 11/03/24 09:[address] WITHOUT CONTRAST; CT LUMBAR SPINE WITHOUT IV CONTRAST CT DOSE: 2232.13 mGy.cm HISTORY: Acute onset abdominal pain with left-sided flank pain abdominal/flank pain TECHNIQUE: Multiaxial CT images of the abdomen, pelvis and lumbar spine were performed without contrast. A dose lowering technique was utilized adhering to the principles of ALARA. COMPARISON STUDY: MRI lumbar spine 01/01/2007, chest radiograph 10/27/2024 FINDINGS: CT ABDOMEN/PELVIS: Coronary artery calcifications. No free air. Lung bases are generally clear. The unenhanced spleen, pancreas and adrenal glands are unremarkable. Gallbladder is within normal limits. Hepatic steatosis. No evidence of cirrhosis. Cortical thinning of the kidneys with mild bilateral perinephric stranding. 6 no ureter nonobstructing calculus of the inferior pole left kidney. There are 2 nonobstructing calculi in the right kidney measuring up to 9 mm within the inferior pole. No ureteral calculi or hydronephrosis. Prostatomegaly. Bladder wall thickening with partial distention. No abdominal aortic aneurysm or lymphadenopathy. No bowel obstruction or bowel wall thickening. Colonic diverticulosis. Normal appendix. No ascites or mesenteric inflammation. CT LUMBAR SPINE: Degenerative and postoperative changes of the spine. Posterior and right-sided stephanie and screw fusion hardware at L3-S1 with discectomy. The hardware appears intact. No evidence of hardware fracture or loosening. There is severe intervertebral disc space narrowing with circumferential disc osteophyte complex at L2-L3 resulting in severe central canal and moderate to severe bilateral foraminal narrowing. Mild lumbar levoscoliosis. IMPRESSION: 1. Nonobstructing bilateral nephrolithiasis. 2. No ureteral calculi or hydronephrosis. 3. Degenerative and postoperative changes of the lumbar spine. No evidence of hardware complication. 4. No acute fracture or subluxation identified. 5. Severe central canal stenosis with bilateral foraminal narrowing L2-L3. 6. Additional findings as above. ACT 112: Negative or not required by law. The above report was generated using voice recognition software. It may contain grammatical, syntax or spelling errors. Electronically signed by: Missael Pablo M.D. 11/03/2024 10:[address] 12/03/24 09:[address] WITHOUT CONTRAST; CT LUMBAR SPINE WITHOUT IV CONTRAST CT DOSE: 2232.13 mGy.cm HISTORY: Acute onset abdominal pain with left-sided flank pain abdominal/flank pain TECHNIQUE: Multiaxial CT images of the abdomen, pelvis and lumbar spine were performed without contrast. A dose lowering technique was utilized adhering to the principles of ALARA. COMPARISON STUDY: MRI lumbar spine 01/01/2007, chest radiograph 10/27/2024 FINDINGS: CT ABDOMEN/PELVIS: Coronary artery calcifications. No free air. Lung bases are generally clear. The unenhanced spleen, pancreas and adrenal glands are unremarkable. Gallbladder is within normal limits. Hepatic steatosis. No evidence of cirrhosis. Cortical thinning of the kidneys with mild bilateral perinephric stranding. 6 no ureter nonobstructing calculus of the inferior pole left kidney. There are 2 nonobstructing calculi in the right kidney measuring up to 9 mm within the inferior pole. No ureteral calculi or hydronephrosis. Prostatomegaly. Bladder wall thickening with partial distention. No abdominal aortic aneurysm or lymphadenopathy. No bowel obstruction or bowel wall thickening. Colonic diverticulosis. Normal appendix. No ascites or mesenteric inflammation. CT LUMBAR SPINE: Degenerative and postoperative changes of the spine. Posterior and right-sided stephanie and screw fusion hardware at L3-S1 with discectomy. The hardware appears intact. No evidence of hardware fracture or loosening. There is severe intervertebral disc space narrowing with circumferential disc osteophyte complex at L2-L3 resulting in severe central canal and moderate to severe bilateral foraminal narrowing. Mild lumbar levoscoliosis. IMPRESSION: 1. Nonobstructing bilateral nephrolithiasis. 2. No ureteral calculi or hydronephrosis. 3. Degenerative and postoperative changes of the lumbar spine. No evidence of hardware complication. 4. No acute fracture or subluxation identified. 5. Severe central canal stenosis with bilateral foraminal narrowing L2-L3. 6. Additional findings as above. ACT 112: Negative or not required by law. The above report was generated using voice recognition software. It may contain grammatical, syntax or spelling errors. Electronically signed by: Missael Pablo M.D. 11/03/2024 10:39 AM Lumbar Spine MRI 11/03/24 15:19 EXAM: MR lumbar spine wo con CLINICAL HISTORY: Pt c/o chronic low back pain radiating down into the lt groin, anterior thigh, and knee. no recent injury, states he had CT that showed severe stenosis at L2 L3, hx lumbar fusion in 2006 and laminectomy 2011. TECHNIQUE: MRI of the lumbar spine was performed without the administration of intravenous contrast. Sequences obtained include sagittal T1-weighted, T2-weighted, STIR (Short Tau Inversion Recovery), and axial T2-weighted sequences. COMPARISON: No previous studies are available for comparison. FINDINGS: Vertebral Alignment: Normal alignment of the lumbar spine without evidence of fracture or malalignment. Loss of lumbar lordosis. Laminectomy at L4 and L5 levels, with internal fixation of L3 through S1 with rods and screws. Adequate decompression of thecal sac noted. Interbody fusion at L3-S1 levels L4-L5 and L5-S1 disc prosthesis are noted. Vertebral Bodies and Intervertebral Discs: Diffuse spondylodegenerative changes. Normal vertebral body height, no fracture identified. No lytic or sclerotic lesions. Normal bone marrow signal intensity. Intervertebral discs demonstrate decreased hydration signal, Pfirmann grade 3. [id number] analysis: T12-L1: There is no significant disc pathology. No spinal canal stenosis. No neural foraminal stenosis. No ligamentum flavum hypertrophy and facet joint arthropathy. L1-L2: Diffuse disc bulge, indenting ventral thecal aspect with bilateral moderate neural foraminal stenosis. Its effect is augmented with ligamentum flavum hypertrophy and hypertrophic facet joint arthropathy. No spinal canal stenosis. L2-L3: Diffuse disc bulge with decreased height and endplate bony hypertrophy, indenting ventral thecal aspect with mild spinal canal stenosis and bilateral moderate neural foraminal stenosis. Its effect is augmented with ligamentum flavum hypertrophy and hypertrophic facet joint arthropathy. L3-L4: There is no significant disc pathology. No spinal canal stenosis. Facet joint arthropathy with mild bilateral neural foraminal stenosis. L4-L5: There is no significant disc pathology. No spinal canal stenosis. Facet joint arthropathy with mild bilateral neural foraminal stenosis. L5-S1: Diffuse disc bulge, indenting ventral thecal aspect with bilateral mild neural foraminal stenosis. No ligamentum flavum hypertrophy and facet joint arthropathy. Spinal Cord and Nerve Roots: Conus medullaris terminates at the L1 level without abnormality. Nerve roots appear unremarkable bilaterally. The lower thoracic spinal cord, conus medullaris, and cauda equina nerve roots are unremarkable. Soft Tissues: Paraspinal soft tissues appear normal without evidence of abnormal signal intensity or mass lesions. IMPRESSION: 1. Loss of lumbar lordosis. 2. Laminectomy at L4 and L5 levels, with internal fixation of L3 through S1 with rods and screws. Adequate decompression of thecal sac noted. 3. L4-L5 and L5-S1 disc prosthesis are noted. 4. Diffuse spondylodegenerative changes with multiple degenerative disc disease as described. Their significance is according to clinical assessment. 5. Ligamentum flavum hypertrophy and facet joint arthropathy. Electronically signed by Corky Downing 11-03-2024 6:48 PM Discharge Plan Visit Data Chief Complaint: Back Injury/Pain Stated Complaint: LT BACK PAIN/TRAVELS DOWN GROIN/STOPS AT LT KNEE ED Provider: Crystal [facility] ED Midlevel Provider: An Webster Discharge Problem: Foraminal stenosis of lumbar region, Lumbar radiculopathy, Intractable low back pain Patient Disposition: Admitted As Inpatient Discharge Instructions Interventions: ED Discharge Assessment Last Done: 11/03/24 17:28
[2024-11-03] MEDS: LIDOCAINE 5% 1 PATCH TD STA (09:41)
[2024-11-03] MEDS: dexAMETHasone**PF** 10 MG/ML VIAL IV ONE (09:41)
[2024-11-03] MEDS: CYCLOBENZAPRINE HCL 10 MG TAB PO STA (09:41)
[2024-11-03] MEDS: KETOROLAC TROMETHAMINE 15 MG/ML VIAL IV ONE (10:03)
[2024-11-03 10:16] LABS: Basophils # (auto) 0.04 K/uL (0.00-0.20); Basophils % (auto) 0.7 %; Eosinophils # (auto) 0.06 K/uL (0.00-0.50); Hematocrit (blood only) 39.6 % (42.0-52.0); Hemoglobin 13.9 g/dl (14.0-18.0); Immature Granulocytes # (auto) 0.04 K/uL (0.01-0.20); Immature Granulocytes % (auto) 0.7 %; Lymphocytes # (auto) 1.19 K/uL (1.20-3.40); Lymphocytes % (auto) 19.8 %; Mean Corpuscular Hemoglobin 30.6 pg (25.0-34.0); Mean Corpuscular Hgb Conc 35.1 g/dL (32.0-36.0); Mean Corpuscular Volume 87.2 fL (80.0-100.0); Mean Platelet Volume 9.7 fL (9.4-12.4); Monocytes # (auto) 0.59 K/uL (0.11-0.59); Monocytes % (auto) 9.8 %; Platelet Count 206 K/uL (130-400); RDW Coefficient of Variation 12.9 % (11.5-14.5); RDW Standard Deviation 41.1 fL (36.4-46.3); Red Blood Count 4.54 M/uL (4.70-6.10); White Blood Count 6.02 K/ul (4.8-10.8)
[2024-11-03 10:33] LABS: Albumin Globulin Ratio 1.9 (0.9-2); Albumin Level 4.5 gm/dl (3.4-5.0); BUN Creatinine Ratio 12.7 (10-20); Bilirubin,Total 0.8 mg/dl (0.2-1.0); Creatinine Clr Calc Pharmacy 102.2 ml/min; Globulin 2.4 gm/dl (2.5-4.0); Potassium 3.7 mmol/L (3.5-5.1); Total Protein 6.9 gm/dl (6.0-8.3)
[2024-11-03] MEDS: MoRPHine SULFATE 4 MG/ML 1 ML CARP\\VIAL IV STA ×2 (10:39→13:23)
--- NOTE | 2024-11-03 10:40 | CT Scan Report ---
ABDOMEN AND PELVIS CT WITHOUT CONTRAST; CT LUMBAR SPINE WITHOUT IV CONTRAST CT DOSE: 2232.13 mGy.cm HISTORY: Acute onset abdominal pain with left-sided flank pain abdominal/flank pain TECHNIQUE: Multiaxial CT images of the abdomen, pelvis and lumbar spine were performed without contra st. A dose lowering technique was utilized adhering to the principles of ALARA. COMPARISON STUDY: MRI lumbar spine 01/01/2007, chest radiograph 10/27/2024 FINDINGS: CT ABDOMEN/PELVIS: Coronary artery calcifications. No free air. Lung bases are generally clear. The u nenhanced spleen, pancreas and adrenal glands are unremarkable. Gallbladder is within normal limits. Hepatic steatosis. No evidence of cirrhosis. Cortical thinning of the kidneys with mild bilateral perinephric stranding. 6 no ureter nonobstructin g calculus of the inferior pole left kidney. There are 2 nonobstructing calculi in the right kidney m easuring up to 9 mm within the inferior pole. No ureteral calculi or hydronephrosis. Prostatomegaly. Bladder wall thickening with partial distention. No abdominal aortic aneurysm or lymphadenopathy. No bowel obstruction or bowel wall thickening. Colonic diverticulosis. Normal appendix. No ascites or me senteric inflammation. CT LUMBAR SPINE: Degenerative and postoperative changes of the spine. Posterior and right-sided stephanie a nd screw fusion hardware at L3-S1 with discectomy. The hardware appears intact. No evidence of hardwa re fracture or loosening. There is severe intervertebral disc space narrowing with circumferential di sc osteophyte complex at L2-L3 resulting in severe central canal and moderate to severe bilateral for aminal narrowing. Mild lumbar levoscoliosis. IMPRESSION: 1. Nonobstructing bilateral nephrolithiasis. 2. No ureteral calculi or hydronephrosis. 3. Degenerative and postoperative changes of the lumbar spine. No evidence of hardware complication. 4. No acute fracture or subluxation identified. 5. Severe central canal stenosis with bilateral foraminal narrowing L2-L3. 6. Additional findings as above. ACT 112: Negative or not required by law. The above report was generated using voice recognition software. It may contain grammatical, syntax o r spelling errors. Electronically signed by: Missael Pablo M.D. 11/03/2024 10:39 AM
[2024-11-03 12:13] LABS: Appearance Urine Clear (Clear); Bilirubin Urine Negative (Negative); Blood Urine Negative (Negative); Color Urine Dark Yellow; Glucose Urine UA Negative (Negative); Ketones Urine Negative (Negative); Leukocyte Esterase Urine Negative (Negative); Nitrite Urine Negative (Negative); Protein Urine Negative (Negative); Specific Gravity Urine 1.012 (1.000-1.030); Urobilinogen Urine Negative (Negative)
--- NOTE | 2024-11-03 15:38 | History & Physical Report ---
Date of Service November 03, 2024 Assessment & Plan (1) Foraminal stenosis of lumbar region: Plan: hx lumbar radiculopathy s/p [address] Daley in [address] lumbar spine and AP showed severe intervertebral disc space narrowing with circumferential disc osteophyte complex at L2-L3 resulting in severe canal and moderate to severe bilateral foraminal narrowing - L3-S1 right sided stephanie and screw fusion hardware intact - also showed several nonobstructing bilateral nephrolithiasis - continue home prn Zanaflex - Prn pain medications - Tylenol, Toradol, lidocaine patch, and Dilaudid (for severe pain unrelieved by Tylenol and Toradol) - pain unrelieved by 8 mg morphine - MRI Lumbar spine ordered - one time dose Ativan ordered - Consult Dr. Daley, ortho spine, to assess patient in AM (2) Difficulty urinating: Plan: secondary to above - bladder scan an straight cath prn - not having retention on admission (3) Hypokalemia: Plan: 3.7 on admission (goal 4.0) -> 30 meq PO ordered - repeat BMP and Mg with AM labs (4) Type II diabetes mellitus: Plan: Controlled on Metformin and Mounjaro at home; held - Most recent A1C 5.6 - SSI with target BSG range 110-140mg/dL, CF 35, carb ratio 11 - T2DM diet - BSG ACHS if eating, q6h if npo (5) Hypertension: Plan: BP mildly elevated likely secondary to pain - continue home amlodipine and losartan-HCTZ Plan Chronic stable diagnoses: hypothyroidismcontinue levothyroxine Hyperlipidemiacontinue statin VTE ppx: SCDs as obs; can add pharmacologic VTE ppx if prolonged stay Diet: T2DM Code status: full Dispo: med/surg Admission and Anticipated Discharge Date Admission Date: 11/03/24 History of Present Illness Chief Complaint: back pain Primary Care Provider: JAMES Tatum Patient is a 64-year-old male with past medical history of lumbar radiculopathy, hyperlipidemia, hypothyroidism, type 2 diabetes, hypertension, fatty liver disease. He presents today due to severe left-sided back pain that radiates to the front/groin and down to his left knee. He stated that the pain has been ongoing since mid September, but has progressively gotten worse over the past few days. He has tingling along with the pain. He stated for the past 3 to 4 days he has also had difficulty with urination, although is still able to urinate. He has been taking tramadol 3 times a day without relief. He had 2 lumbar surgeries in [address] Daley. He denies right sided back or groin pain. Patient denies fever, chills, headache, dizziness, lightheadedness, dyspnea, dyspnea on exertion, chest pain, abdominal pain, nausea, vomiting, diarrhea, constipation, hematuria, edema, numbness. Patient has had difficulty with MRI in the past due to claustrophobia, has had relief with Ativan in past. Will order as needed Ativan to get necessary lumbar spine MRI. Patient agreeable. To be assessed by Dr. Daley in AM. Patient's updated at bedside. Allergies Allergy/AdvReac Type Severity Reaction Status Date / Time celecoxib AdvReac Mild GI symptoms Verified 11/03/24 14:37 lisinopril AdvReac Mild Cough Verified 11/03/24 14:37 Home Medications Medication Instructions Recorded Confirmed Type cholecalciferol (vitamin D3) 25 1,000 units PO QAM 05/07/19 11/03/24 History mcg (1,000 unit) capsule ascorbic acid (vitamin C) 500 mg 500 mg PO QAM 07/03/19 11/03/24 History capsule ondansetron 4 mg disintegrating 4 mg PO Q8 PRN nausea #20 tabs 07/28/23 11/03/24 Rx tablet amlodipine 5 mg tablet 5 mg PO QAM #90 tabs 11/11/23 11/03/24 Rx losartan 100 1 tab PO QAM #90 tabs 12/05/23 11/03/24 Rx mg-hydrochlorothiazide 25 mg tablet levothyroxine 25 mcg tablet 25 mcg PO QAM #90 tabs 12/09/23 11/03/24 Rx tadalafil 5 mg tablet 5 mg PO DAILY PRN sexual activity 03/30/24 11/03/24 Rx #60 tabs tramadol 50 mg tablet 50 mg PO Q6H PRN pain #60 tabs 09/15/24 11/03/24 Rx tizanidine 2 mg tablet 2 mg PO Q8H PRN muscle spasticity 09/30/24 11/03/24 Rx #30 tabs amoxicillin 500 mg tablet 2,000 mg PO ONCE PRN dental 10/20/24 11/03/24 History procedures qtvtssdaxyak-dyl-mldki acid-vit 1 tab PO DAILY 10/20/24 11/03/24 History K-lycop 400 mcg-20 mcg-370 mcg tablet (Men's 50 Plus Multivitamin) rosuvastatin 10 mg tablet 10 mg PO HS 10/20/24 11/03/24 History sennosides 8.6 mg tablet (Senokot) 8.6 mg PO BID PRN prevent 10/20/24 11/03/24 History constipation tirzepatide 5 mg/0.5 mL 5 mg subcut WK 10/20/24 11/03/24 History subcutaneous pen injector vitamin B complex 1 tab PO DAILY 10/20/24 11/03/24 History metformin 500 mg tablet See Rx Instructions .Route .COMPLEX 11/03/24 11/03/24 History Past Med/Surg History Problem List (Updated 11/04/24 @ 08:22 by Loyd Daley, DO) Lumbosacral spondylosis with radiculopathy Intractable low back pain (Acute) Difficulty urinating Hypokalemia Dyslipidemia Hypertension Per records Hypothyroidism Type II diabetes mellitus Foraminal stenosis of lumbar region (Acute) Encounter for pre-operative examination Allergic rhinitis (Acute) Inhibited sexual excitement (Acute) Internal hemorrhoids (Acute) Lumbar radiculopathy (Acute) Vitamin D deficiency (Acute) Medical History Diverticulosis Osteoarthritis Chronic back pain Obesity Acquired deviated nasal septum Per records Patient unaware Hx of colonic polyps Fatty liver Arthritis Achilles tendinitis B/L feet, occasional flares Surgical History Hx of colonoscopy with polypectomy History of arthroplasty of left knee (07/30/23) History of carpal tunnel surgery of right wrist History of lumbar spinal fusion (~2006) History of tooth extraction Hx of laminectomy (~2011) Decompression (L5-S1) + rods/screws Family History Grandfather (Maternal) Myocardial infarction Grandfather (Paternal) Colorectal cancer Mother Prediabetes Father Prostate cancer Diabetes Denies family history of Ovarian cancer Coronary heart disease Breast cancer Lung cancer Social History Smoking Status: Never smoker Second Hand Exposure: No; Do You Dip or Chew Tobacco: No; Tobacco Cessation Education Requested by Patient: No Hx Alcohol Use: Yes Alcohol type: beer and hard liquor Hx Substance Use: No Preferred Language: Chilean Communication Ability: Effective Hearing Ability: Normal [employer] Vault Custodian Required: No Beliefs That Will Affect Care: None marital status: Current Living Situation: Spouse current occupational status: retired Other Information That Helps Us Care for You: No Feels Safe at Home: Yes Safety Concerns: Feels Safe At This Time Childhood Exposure to Second-Hand Smoke: Yes Diet: regular caffeine: Yes Dental Care, Regularly: Yes Physical Activity Frequency: Does not Exercise Seatbelt Use: always Sunscreen Use: No Assistive Devices: Glasses Review of Systems Review of Systems: see HPI Physical Exam Physical Exam: The patient is awake, alert and oriented 3, well developed and well nourished, normocephalic and atraumatic, in no acute distress. Non-toxic appearing. HEENT- EOMI, mucous membranes moist. Hearing grossly intact. Heart-normal S1 and S2. No murmurs, rubs or gallops. Lungs-clear bilaterally, no respiratory distress, no accessory muscle use. Abdomen-normal bowel sounds and soft. No ascites noted. Non-tender. Extremities- no clubbing, cyanosis, or edema. Rheumatologic-normal range of motion. Psychiatric-normal affect. Musculoskeletal: no cyanosis or clubbing, extremities motor strength 5/5 Spine: + straight leg raise positive; no lumbar spinal tenderness Results & Data Results & Data Vital Signs (Past 12 Hours) Vital Signs Temp Pulse Pulse Resp BP BP Pulse Ox 11/03/24 14:00 150/84 H 11/03/24 13:57 72 19 97 11/03/24 13:51 90 18 97 11/03/24 13:00 146/79 H 11/03/24 13:00 146/79 H 11/03/24 13:00 84 10 L 93 11/03/24 12:36 75 11 L 95 11/03/24 12:30 139/81 11/03/24 12:27 77 15 94 11/03/24 12:03 73 11 L 96 11/03/24 12:03 74 11/03/24 12:02 74 18 147/87 H 97 11/03/24 12:01 147/87 H 11/03/24 11:48 76 10 L 94 11/03/24 11:33 81 12 91 11/03/24 11:30 144/71 H 11/03/24 11:24 76 13 91 11/03/24 11:00 138/80 11/03/24 11:00 138/80 11/03/24 11:00 77 16 95 11/03/24 10:51 74 18 92 11/03/24 08:55 36.1 C L 89 20 176/102 H 96 O2 Del Method 11/03/24 14:00 11/03/24 13:57 11/03/24 13:51 11/03/24 13:00 11/03/24 13:00 11/03/24 13:00 11/03/24 12:36 11/03/24 12:30 11/03/24 12:27 11/03/24 12:03 11/03/24 12:03 11/03/24 12:02 Room Air 11/03/24 12:01 11/03/24 11:48 11/03/24 11:33 11/03/24 11:30 11/03/24 11:24 11/03/24 11:00 11/03/24 11:00 11/03/24 11:00 11/03/24 10:51 11/03/24 08:55 Room Air Code Status & VTE Plan Code Status full VTE Prophylaxis Plan VTE Prophylaxis will be ordered: Yes Supervising Physician Co-Signing Physician Notes I personally saw and examined the patient. I independently reviewed the labs, imaging, problem list, medication list, past medical history and family history. I verified all lloyd points and agree with Lilly Ayala PA-C with the following exceptions and/or additions: 64 year old male presents to the ER with acute on chronic back pain with lumbar radiculopathy in L1/2 distribution O/E HS RRR, no murmurs, Chest CTAB, Abdo SNT, L1/2 distribution numbness, hip flex 4/5 A/P Lumbar radiculopathy - add Lyrica (failed gabapentin previously), consult ortho spine PG Care Time/CCT Total # of Minutes Spent Total Time Spent with Patient: Total time spent is greater than 50% in coordination of care (as documented) at patient's floor/unit and/or counseling patient: Coding Level of Care Code 82907 INT INP/OBS CARE MIN Diagnoses Foraminal stenosis of lumbar region M48.061 Difficulty urinating R39.198 Hypokalemia E87.6 Type II diabetes mellitus E11.9 Hypertension I10
[2024-11-03] MEDS: POTASSIUM CHLORIDE 10 MEQ TABCR PO STA (16:27)
[2024-11-03] MEDS: LORazepam 2 MG/1 ML VIAL IV ONE (17:05)
[2024-11-03] MEDS ORDERED: GLUCOSE 10 TAB/TUBE PO PRN (18:10)
[2024-11-03] MEDS ORDERED: GLUCOSE 40% GEL 15 GM TUBE PO PRN (18:10)
[2024-11-03] MEDS ORDERED: GLUCAGON FOR INJ 1 MG VIAL SQ PRN (18:10)
[2024-11-03] MEDS ORDERED: DEXTROSE 50% 50 ML SYRINGE IV PRN (18:10)
[2024-11-03] MEDS ORDERED: CARBOHYDRATES FOR HYPOGLYCEMIA PO PRN (18:10)
[2024-11-03] MEDS ORDERED: ONDANSETRON INJ 2 MG/ML 2 ML VIAL IV PRN (18:10)
[2024-11-03] MEDS: KETOROLAC TROMETHAMINE 15 MG/ML VIAL IV PRN (18:30)
--- NOTE | 2024-11-03 18:49 | Magnetic Resonance Report ---
EXAM: MR lumbar spine wo con CLINICAL HISTORY: Pt c/o chronic low back pain radiating down into the lt groin, anterior thigh, and knee. no recent injury, states he had CT that showed severe stenosis at L2 L3, hx lumbar fusion in 2006 and laminectomy 2011. TECHNIQUE: MRI of the lumbar spine was performed without the administration of intravenous contrast. Sequences obtained include sagittal T1-weighted, T2-weighted, STIR (Short Tau Inversion Recovery), and axial T2-weighted sequences. COMPARISON: No previous studies are available for comparison. FINDINGS: Vertebral Alignment: Normal alignment of the lumbar spine without evidence of fracture or malalignment. Loss of lumbar lordosis. Laminectomy at L4 and L5 levels, with internal fixation of L3 through S1 with rods and screws. Adequate decompression of thecal sac noted. Interbody fusion at L3-S1 levels L4-L5 and L5-S1 disc prosthesis are noted. Vertebral Bodies and Intervertebral Discs: Diffuse spondylodegenerative changes. Normal vertebral body height, no fracture identified. No lytic or sclerotic lesions. Normal bone marrow signal intensity. Intervertebral discs demonstrate decreased hydration signal, Pfirmann grade 3. Qcfyv-we-xotdj analysis: T12-L1: There is no significant disc pathology. No spinal canal stenosis. No neural foraminal stenosis. No ligamentum flavum hypertrophy and facet joint arthropathy. L1-L2: Diffuse disc bulge, indenting ventral thecal aspect with bilateral moderate neural foraminal stenosis. Its effect is augmented with ligamentum flavum hypertrophy and hypertrophic facet joint arthropathy. No spinal canal stenosis. L2-L3: Diffuse disc bulge with decreased height and endplate bony hypertrophy, indenting ventral thecal aspect with mild spinal canal stenosis and bilateral moderate neural foraminal stenosis. Its effect is augmented with ligamentum flavum hypertrophy and hypertrophic facet joint arthropathy. L3-L4: There is no significant disc pathology. No spinal canal stenosis. Facet joint arthropathy with mild bilateral neural foraminal stenosis. L4-L5: There is no significant disc pathology. No spinal canal stenosis. Facet joint arthropathy with mild bilateral neural foraminal stenosis. L5-S1: Diffuse disc bulge, indenting ventral thecal aspect with bilateral mild neural foraminal stenosis. No ligamentum flavum hypertrophy and facet joint arthropathy. Spinal Cord and Nerve Roots: Conus medullaris terminates at the L1 level without abnormality. Nerve roots appear unremarkable bilaterally. The lower thoracic spinal cord, conus medullaris, and cauda equina nerve roots are unremarkable. Soft Tissues: Paraspinal soft tissues appear normal without evidence of abnormal signal intensity or mass lesions. IMPRESSION: 1. Loss of lumbar lordosis. 2. Laminectomy at L4 and L5 levels, with internal fixation of L3 through S1 with rods and screws. Adequate decompression of thecal sac noted. 3. L4-L5 and L5-S1 disc prosthesis are noted. 4. Diffuse spondylodegenerative changes with multiple degenerative disc disease as described. Their significance is according to clinical assessment. 5. Ligamentum flavum hypertrophy and facet joint arthropathy. Electronically signed by Corky Downing 11-03-2024 6:48 PM
[2024-11-03] MEDS: tiZANidine HCL 4 MG TABLET PO PRN (19:30)
[2024-11-03] MEDS: INSULIN ASPART PER UNIT CHARGE SC SCH (20:30)
[2024-11-04] MEDS: ROSUVASTATIN CALCIUM 10 MG TAB PO SCH (00:03)
[2024-11-04] MEDS: PREGABALIN 25 MG CAP PO SCH (00:03)
[2024-11-04] MEDS: HYDROmorphone INJ 0.5 MG/0.5 ML SYR IV PRN (00:05)
[2024-11-04 06:51] LABS: Basophils # (auto) 0.01 K/uL (0.00-0.20); Basophils % (auto) 0.1 %; Eosinophils # (auto) 0.01 K/uL (0.00-0.50); Eosinophils % (auto) 0.1 %; Hematocrit (blood only) 40.2 % (42.0-52.0); Hemoglobin 13.7 g/dl (14.0-18.0); Immature Granulocytes # (auto) 0.04 K/uL (0.01-0.20); Immature Granulocytes % (auto) 0.4 %; Lymphocytes # (auto) 1.57 K/uL (1.20-3.40); Lymphocytes % (auto) 15.4 %; Mean Corpuscular Hemoglobin 30.2 pg (25.0-34.0); Mean Corpuscular Hgb Conc 34.1 g/dL (32.0-36.0); Mean Corpuscular Volume 88.7 fL (80.0-100.0); Mean Platelet Volume 9.6 fL (9.4-12.4); Monocytes % (auto) 9.8 %; Neutrophils # (auto) 7.59 K/uL (1.40-6.50); Neutrophils % (auto) 74.2 %; Platelet Count 201 K/uL (130-400); RDW Coefficient of Variation 13.1 % (11.5-14.5); RDW Standard Deviation 42.5 fL (36.4-46.3); Red Blood Count 4.53 M/uL (4.70-6.10); White Blood Count 10.22 K/ul (4.8-10.8)
[2024-11-04 07:09] LABS: Calcium 9.5 mg/dl (8.6-10.3); Creatinine Clr Calc Pharmacy 99.3 ml/min; Potassium 4.1 mmol/L (3.5-5.1)
[2024-11-04] MEDS: LEVOTHYROXINE SODIUM 25 MCG TABLET PO SCH (07:29)
--- NOTE | 2024-11-04 08:23 | Orthopedic Consultation ---
Date of Consultation November 04, 2024 Assessment & Plan (1) Lumbosacral spondylosis with radiculopathy: Assessment lumbar spondylosis with radiculopathy, lumbar spinal stenosis and advanced lumbar degenerative disc disease L2-L3. Plan at this time I discussed with the patient reviewing his CAT scan and MRI imaging. He has evidence of stenosis marked spondylosis and radiculopathy on exam. He is markedly limited. He would like to consider surgical invention. Would require a lumbar decompression and fusion L2-L3. We would connect to previous instrumentation. Respective pros cons alternatives were all in detail. At this point the patient is being mated for pain control and will try for surgery as soon as OR time is available. History of Present Illness Reason for Consultation: Severe back pain with left leg pain and numbness Attending Physician: Citlalli Boles MD History of Present Illness This is a 64-year-old male well-known to me the presents with marked decline in status over the past several months. He is very active over the summer was able to ambulate and golf without difficulty but in August started having significant axial back pain. It is progressed to incapacitating pain is intolerable for him to sit. He only obtains any relief lying supine. It radiates into the left buttock left groin and anterior thigh. Associated numbness in the groin. Denies gross strength deficits at this time but is markedly limited with activity. He has tried a course of various medications including pain medications and muscle relaxers but continues to decline. Allergies Allergy/AdvReac Type Severity Reaction Status Date / Time celecoxib AdvReac Mild GI symptoms Verified 11/03/24 14:37 lisinopril AdvReac Mild Cough Verified 11/03/24 14:37 Home Medications Medication Instructions Recorded Confirmed Type cholecalciferol (vitamin D3) 25 1,000 units PO QAM 05/07/19 11/03/24 History mcg (1,000 unit) capsule ascorbic acid (vitamin C) 500 mg 500 mg PO QAM 07/03/19 11/03/24 History capsule ondansetron 4 mg disintegrating 4 mg PO Q8 PRN nausea #20 tabs 07/28/23 11/03/24 Rx tablet amlodipine 5 mg tablet 5 mg PO QAM #90 tabs 11/11/23 11/03/24 Rx losartan 100 1 tab PO QAM #90 tabs 12/05/23 11/03/24 Rx mg-hydrochlorothiazide 25 mg tablet levothyroxine 25 mcg tablet 25 mcg PO QAM #90 tabs 12/09/23 11/03/24 Rx tadalafil 5 mg tablet 5 mg PO DAILY PRN sexual activity 03/30/24 11/03/24 Rx #60 tabs tramadol 50 mg tablet 50 mg PO Q6H PRN pain #60 tabs 09/15/24 11/03/24 Rx tizanidine 2 mg tablet 2 mg PO Q8H PRN muscle spasticity 09/30/24 11/03/24 Rx #30 tabs amoxicillin 500 mg tablet 2,000 mg PO ONCE PRN dental 10/20/24 11/03/24 History procedures vcianirtvjwz-oud-pynir acid-vit 1 tab PO DAILY 10/20/24 11/03/24 History K-lycop 400 mcg-20 mcg-370 mcg tablet (Men's 50 Plus Multivitamin) rosuvastatin 10 mg tablet 10 mg PO HS 10/20/24 11/03/24 History sennosides 8.6 mg tablet (Senokot) 8.6 mg PO BID PRN prevent 10/20/24 11/03/24 History constipation tirzepatide 5 mg/0.5 mL 5 mg subcut WK 10/20/24 11/03/24 History subcutaneous pen injector vitamin B complex 1 tab PO DAILY 10/20/24 11/03/24 History metformin 500 mg tablet See Rx Instructions .Route .COMPLEX 11/03/24 11/03/24 History Patient History Medical History Diverticulosis Osteoarthritis Chronic back pain Obesity Acquired deviated nasal septum Per records Patient unaware Hx of colonic polyps Fatty liver Arthritis Achilles tendinitis B/L feet, occasional flares Surgical History Hx of colonoscopy with polypectomy History of arthroplasty of left knee (07/30/23) History of carpal tunnel surgery of right wrist History of lumbar spinal fusion (~2006) History of tooth extraction Hx of laminectomy (~2011) Decompression (L5-S1) + rods/screws Family History Grandfather (Maternal) Myocardial infarction Grandfather (Paternal) Colorectal cancer Mother Prediabetes Father Prostate cancer Diabetes Denies family history of Ovarian cancer Coronary heart disease Breast cancer Lung cancer Social History Smoking Status: Never smoker Second Hand Exposure: No; Do You Dip or Chew Tobacco: No; Tobacco Cessation Education Requested by Patient: No Hx Alcohol Use: Yes Alcohol type: beer and hard liquor Hx Substance Use: No Preferred Language: Danish Communication Ability: Effective Hearing Ability: Normal Windows Vmware Administrator Required: No Beliefs That Will Affect Care: None marital status: Current Living Situation: Spouse current occupational status: retired Other Information That Helps Us Care for You: No Feels Safe at Home: Yes Safety Concerns: Feels Safe At This Time Childhood Exposure to Second-Hand Smoke: Yes Diet: regular caffeine: Yes Dental Care, Regularly: Yes Physical Activity Frequency: Does not Exercise Seatbelt Use: always Sunscreen Use: No Assistive Devices: Glasses Physical Exam Physical Exam: On exam the patient does have good strength testing. Is able to stand for me without difficulty. Lumbar flexion extension is tolerable. He has no pain to palpation lumbosacral junction or bilateral SI joints. The trochanteric regions are asymptomatic. He has numbness to the left anterior thigh compared to the right and into the groin area. Results & Data Vital Signs (Past 12 Hours) Vital Signs Pulse Pulse Resp BP BP Pulse Ox O2 Del Method 11/04/24 07:03 77 11/04/24 06:03 67 12 97 11/04/24 05:02 68 11 L 95 11/04/24 04:12 74 10 L 95 11/04/24 04:00 133/81 11/04/24 03:42 67 8 L 96 11/04/24 03:09 72 8 L 95 11/04/24 02:21 72 10 L 94 11/04/24 02:00 111/80 11/04/24 01:54 80 10 L 93 11/04/24 01:06 84 8 L 93 11/04/24 00:00 92 H 12 96 11/04/24 00:00 123/86 11/04/24 00:00 123/86 11/03/24 23:17 84 11/03/24 23:00 83 16 123/71 93 Room Air 11/03/24 22:49 90 18 117/71 95 Room Air
[2024-11-04] MEDS: LOSARTAN/HCTZ 50/12.5MG TAB PO SCH (08:39)
[2024-11-04] MEDS: amLODIPine BESYLATE 5 MG TAB PO SCH (08:39)
[2024-11-04] MEDS: LIDOCAINE 5% 1 PATCH TD SCH (08:39)
--- NOTE | 2024-11-04 15:03 | Hospitalist Progress Note ---
Date of Service November 04, 2024 Assessment & Plan (1) Foraminal stenosis of lumbar region: Plan: hx lumbar radiculopathy s/p [address] Daley in [address] lumbar spine: severe intervertebral disc space narrowing with circumferential disc osteophyte complex at L2-L3 resulting in severe canal and moderate to severe bilateral foraminal narrowing. L3-S1 right sided stephanie and screw fusion hardware intact. also showed several nonobstructing bilateral nephrolithiasis MRI Lumbar spine: L2-L3: Diffuse disc bulge with decreased height and endplate bony hypertrophy, indenting ventral thecal aspect with mild spinal canal stenosis and bilateral moderate neural foraminal stenosis. Its effect is augmented with ligamentum flavum hypertrophy and hypertrophic facet joint arthropathy. Consult Ortho Spine - plan for surgical intervention 11/06 - continue home prn Zanaflex - pain medications - Tylenol, Toradol, lidocaine patch, and Dilaudid (2) Difficulty urinating: Plan: secondary to above - bladder scan an straight cath prn - not having retention on admission This has resolved. (3) Type II diabetes mellitus: Plan: Controlled on Metformin and Mounjaro at home; held - Most recent A1C 5.6 - SSI with target BSG range 110-140mg/dL, CF 35, carb ratio 11 Plan Chronic stable diagnoses: hypothyroidismcontinue levothyroxine Hyperlipidemiacontinue statin HTN - continue amlodipine. losartan/HCTZ held with anticipation of surgery VTE ppx: SCDs Dispo: continued inpatient stay, awaiting OR Admission and Anticipated Discharge Date Admission Date: November 04, 2024 Supervising Physician Co-Signing Physician Notes PA Supervision Note: I did not personally see or examine the patient today, but I verified all lloyd points of ROSY Mckenzie's assessment and plan with the following ex ceptions/additions: None Subjective Patient seen lying in bed while still holding in the ER. pain is controlled at rest, but worse with movement. No numbness and tingling at rest only in the left leg any difficulty urinating or urinary symptoms that he had have resolved. SR on the monitor Review of Systems Review of Systems: All systems reviewed & are unremarkable except as noted in Subjective Physical Exam Physical Exam: General: NAD, VS as above Resp: normal respiratory effort, lungs clear to auscultation CV: RRR, no murmur, Abd:soft, non tender, Extremities: Moves all extremities, + pedal pulses. Neuro: A&O x3, Skin: intact, no lesions noted Results & Data Results & Data Vital Signs (Past 12 Hours) Vital Signs Temp Pulse Pulse Pulse Resp BP BP 11/04/24 14:09 97.7 F 69 17 143/81 H 11/04/24 08:00 94 H 20 141/77 H 11/04/24 07:03 77 11/04/24 06:03 67 12 11/04/24 05:02 68 11 L 11/04/24 04:12 74 10 L 11/04/24 04:00 133/81 11/04/24 03:42 67 8 L 11/04/24 03:09 72 8 L Pulse Ox O2 Del Method 11/04/24 14:09 94 Room Air 11/04/24 08:00 97 Room Air 11/04/24 07:03 11/04/24 06:03 97 11/04/24 05:02 95 11/04/24 04:12 95 11/04/24 04:00 11/04/24 03:42 96 11/04/24 03:09 95 Laboratory Results CBC and chemistry reviewed PG Care Time/CCT Total # of Minutes Spent Total Time Spent with Patient: Total time spent is greater than 50% in coordination of care (as documented) at patient's floor/unit and/or counseling patient: Coding Level of Care Code 68262 SUB INP/OBS CARE 2/35MIN Diagnoses Foraminal stenosis of lumbar region M48.061 Difficulty urinating R39.198 Type II diabetes mellitus E11.9
[2024-11-04] MEDS: DOCUSATE SODIUM 100 MG CAP PO PRN (16:34)
--- NOTE | 2024-11-05 11:02 | Hospitalist Progress Note ---
Date of Service November 05, 2024 Assessment & Plan (1) Foraminal stenosis of lumbar region: Plan: hx lumbar radiculopathy s/p [address] Daley [place] [address] lumbar spine: severe intervertebral disc space narrowing with circumferential disc osteophyte complex at L2-L3 resulting in severe canal and moderate to severe bilateral foraminal narrowing. L3-S1 right sided stephanie and screw fusion hardware intact. also showed several nonobstructing bilateral nephrolithiasis MRI Lumbar spine: L2-L3: Diffuse disc bulge with decreased height and endplate bony hypertrophy, indenting ventral thecal aspect with mild spinal canal stenosis and bilateral moderate neural foraminal stenosis. Its effect is augmented with ligamentum flavum hypertrophy and hypertrophic facet joint arthropathy. Consult Ortho Spine - plan for surgical intervention 11/06 - continue home prn Zanaflex - pain medications - Tylenol, Toradol, lidocaine patch, oxycodone and Dilaudid - Daily senna added Besides HTN, no chronic cardio or pulm issues. Medically optimized for surgery. (2) Difficulty urinating: Plan: secondary to above - bladder scan an straight cath prn - not having retention on admission This has resolved. (3) Type II diabetes mellitus: Plan: Controlled on Metformin and Mounjaro at home; held - Most recent A1C 5.6 - SSI with target BSG range 110-140mg/dL, CF 35, BSG well controlled with minimal insulin needs - carb ratio removed. Plan Chronic stable diagnoses: hypothyroidismTSH 2023 was normal, continue levothyroxine Hyperlipidemiacontinue statin HTN - continue amlodipine. losartan/HCTZ held with anticipation of surgery VTE ppx: SCDs Dispo: continued inpatient stay, awaiting OR Admission and Anticipated Discharge Date Admission Date: November 04, 2024 Supervising Physician Co-Signing Physician Notes PA Supervision Note: I did not personally see or examine the patient today, but I verified all lloyd points of ROSY Mckenzie's assessment and plan with the following exceptions/a dditions: None Subjective patient seen lying in bed. Pain controlled improved at rest from yesterday. Has not had a bowel movement since saturday. no urinary issues Review of Systems Review of Systems: All systems reviewed & are unremarkable except as noted in Subjective Physical Exam Physical Exam: General: NAD, VS as above Resp: normal respiratory effort, lungs clear to auscultation CV: RRR, no murmur, Abd:soft, non tender, Extremities: Moves all extremities, Neuro: A&O x3, Results & Data Results & Data Vital Signs (Past 12 Hours) Vital Signs Temp Pulse Resp BP Pulse Ox O2 Del Method 11/05/24 08:10 97.7 F 69 17 141/82 H 95 Room Air Laboratory Results POC glucose reviewed PG Care Time/CCT Total # of Minutes Spent Total Time Spent with Patient: Total time spent is greater than 50% in coordination of care (as documented) at patient's floor/unit and/or counseling patient: Coding Level of Care Code 65397 SUB INP/OBS CARE 2/35MIN Diagnoses Foraminal stenosis of lumbar region M48.061 Difficulty urinating R39.198 Type II diabetes mellitus E11.9
--- NOTE | 2024-11-05 11:07 | Orthopedic Progress Note ---
Date of Service November 05, 2024 Assessment & Plan (1) Lumbosacral spondylosis with radiculopathy: Plan: At this time patient has severe spinal stenosis with radiculopathy affecting predominantly the L2 nerve root on the left. We are planning for surgical inter vention tomorrow. It would require decompression fusion L2-L3. He will be made n.p.o. after midnight. Admission and Anticipated Discharge Date Admission Date: November 04, 2024 Subjective Patient continues to have severe back pain rating into the left anterior thigh and groin. It is exacerbated with activity. His pain is controlled with his current pain regiment including IV Dilaudid. Physical Exam Physical Exam: Patient is currently in bed. Does have reasonable plantarflexion dorsiflexion. There is limitations to hip flexion on the left. Results & Data Vital Signs (Past 12 Hours) Vital Signs Temp Pulse Resp BP Pulse Ox O2 Del Method 11/05/24 08:10 36.5 C 69 17 141/82 H 95 Room Air
[2024-11-05] MEDS: oxyCODONE HCL IR 5 MG TAB (IMMEDIATE RELEASE) PO PRN (12:16)
[2024-11-05] MEDS: ACETAMINOPHEN 325 MG TAB PO PRN (15:01)
[2024-11-06 06:39] LABS: Hematocrit (blood only) 40.6 % (42.0-52.0); Hemoglobin 13.8 g/dl (14.0-18.0); Mean Corpuscular Hemoglobin 30.3 pg (25.0-34.0); Mean Corpuscular Volume 89.2 fL (80.0-100.0); Mean Platelet Volume 9.6 fL (9.4-12.4); Platelet Count 180 K/uL (130-400); RDW Standard Deviation 42.3 fL (36.4-46.3); Red Blood Count 4.55 M/uL (4.70-6.10); White Blood Count 6.34 K/ul (4.8-10.8)
[2024-11-06] MEDS: INSULIN ASPART PER UNIT CHARGE SC SCH (08:26)
[2024-11-06] MEDS: SENNA 8.6 MG TAB PO SCH (09:05)
[2024-11-06 09:12] LABS: Calcium 9.5 mg/dl (8.6-10.3); Creatinine Clr Calc Pharmacy 99.3 ml/min; Potassium 4.3 mmol/L (3.5-5.1)
[2024-11-06] MEDS ORDERED: ONDANSETRON INJ 2 MG/ML 2 ML VIAL ONE (09:18)
[2024-11-06] MEDS ORDERED: LIDOCAINE 2% 2 ML VIAL/AMP(20MG/ML) INFIL ONE (09:18)
[2024-11-06] MEDS ORDERED: DEXAMETHASONE SOD INJ 4 MG/ML VIAL ONE (09:18)
[2024-11-06] MEDS ORDERED: ROCURONIUM BROMIDE 10 MG/ML 5 ML VIAL IV ONE (09:18)
[2024-11-06] MEDS ORDERED: MIDAZOLAM HCL 1 MG/ML 2ML VIAL ONE (09:18)
[2024-11-06] MEDS ORDERED: PROPOFOL IV EMULSION 10 MG/ML 20 ML VIAL IV ONE (09:18)
[2024-11-06] MEDS ORDERED: fentaNYL citrate PF 100 MCG/2 ML VIAL ONE (09:18)
[2024-11-06] MEDS ORDERED: GLYCOPYRROLATE 0.2 MG/ML VIAL ONE (09:18)
[2024-11-06] MEDS ORDERED: SUGAMMADEX SODIUM 200 MG/2 ML VIAL IV ONE (09:19)
--- NOTE | 2024-11-06 10:38 | Hospitalist Progress Note ---
Date of Service November 06, 2024 Assessment & Plan (1) Foraminal stenosis of lumbar region: Plan: hx lumbar radiculopathy s/p [address] Daley [place] [address] lumbar spine: severe intervertebral disc space narrowing with circumferential disc osteophyte complex at L2-L3 resulting in severe canal and moderate to severe bilateral foraminal narrowing. L3-S1 right sided stephanie and screw fusion hardware intact. also showed several nonobstructing bilateral nephrolithiasis MRI Lumbar spine: L2-L3: Diffuse disc bulge with decreased height and endplate bony hypertrophy, indenting ventral thecal aspect with mild spinal canal stenosis and bilateral moderate neural foraminal stenosis. Its effect is augmented with ligamentum flavum hypertrophy and hypertrophic facet joint arthropathy. Consult Ortho Spine - plan for surgical intervention 11/06 - unfortunately was cancelled d/t surgeon illness, hopeful for 11/09 - continue home prn Zanaflex - pain medications - Tylenol, Toradol, lidocaine patch, oxycodone and Dilaudid - Daily senna added Will add DVT proh over the weekend while awaiting OR and decreased activity level (2) Difficulty urinating: Plan: secondary to above - bladder scan an straight cath prn - not having retention on admission This has resolved. (3) Type II diabetes mellitus: Plan: Controlled on Metformin and Mounjaro at home; held - Most recent A1C 5.6 BSG well controlled with minimal insulin needs - will d/c inuslin, but continue to check sugars. May need to readd if steroids/hyperglycemia post op Plan Chronic stable diagnoses: hypothyroidismTSH 2023 was normal, continue levothyroxine Hyperlipidemiacontinue statin HTN - continue amlodipine. losartan/HCTZ held with anticipation of surgery, possible resume AM pending BMP VTE ppx: SCDs. lovenox for the weekend Dispo: continued inpatient stay, awaiting OR Admission and Anticipated Discharge Date Admission Date: November 04, 2024 Supervising Physician Co-Signing Physician Notes PA Supervision Note: I did not personally see or examine the patient today, but I verified all lloyd points of ROSY Mckenzie's assessment and plan with the following exceptions/additions: None Subjective patient seen resting in bed, pain slighltly improved. + BM yesterday surgery planned for today Review of Systems 2 Review of Systems: All systems reviewed & are unremarkable except as noted in Subjective Physical Exam Physical Exam: General: NAD, VS as above Resp: normal respiratory effort, lungs clear to auscultation CV: RRR, no murmur, Abd:soft, non tender, Extremities: Moves all extremities, Neuro: A&O x3, Results & Data Results & Data Vital Signs (Past 12 Hours) Vital Signs Temp Pulse Resp BP Pulse Ox O2 Del Method 11/06/24 07:23 97.9 F 66 18 151/82 H 96 Room Air Laboratory Results CBC and chemistry reviewed PG Care Time/CCT Total # of Minutes Spent Total Time Spent with Patient: Total time spent is greater than 50% in coordination of care (as documented) at patient's floor/unit and/or counseling patient: Coding Level of Care Code 59672 SUB INP/OBS CARE 2/35MIN Diagnoses Foraminal stenosis of lumbar region M48.061 Difficulty urinating R39.198 Type II diabetes mellitus E11.9
--- NOTE | 2024-11-06 12:53 | Orthopedic Progress Note ---
Date of Service November 06, 2024 Assessment & Plan (1) Lumbosacral spondylosis with radiculopathy: Plan: rescheduled to Friday 11/09. All questions aswered for patient and his today. Will order food tray Admission and Anticipated Discharge Date Admission Date: November 04, 2024 Subjective No changes in his complaints. Unfortunately, his case is being postponed due to Dr. Daley falling ill today. We will tentatively reschedule OR for Friday 11/09 Review of Systems Review of Systems: All systems reviewed & are unremarkable except as noted in HPI & below Physical Exam Physical Exam: no changes neurologically intact Results & Data Vital Signs (Past 12 Hours) Vital Signs Temp Pulse Resp BP Pulse Ox O2 Del Method 11/06/24 07:23 36.6 C 66 18 151/82 H 96 Room Air
[2024-11-06] MEDS: ENOXAPARIN INJ 40 MG/0.4 ML SYR SQ SCH (22:30)
--- NOTE | 2024-11-07 11:52 | Hospitalist Progress Note ---
Date of Service November 07, 2024 Assessment & Plan (1) Foraminal stenosis of lumbar region: Plan: hx lumbar radiculopathy s/p [address] Daley [place] [address] lumbar spine: severe intervertebral disc space narrowing with circumferential disc osteophyte complex at L2-L3 resulting in severe canal and moderate to severe bilateral foraminal narrowing. L3-S1 right sided stephanie and screw fusion hardware intact. also showed several nonobstructing bilateral nephrolithiasis MRI Lumbar spine: L2-L3: Diffuse disc bulge with decreased height and endplate bony hypertrophy, indenting ventral thecal aspect with mild spinal canal stenosis and bilateral moderate neural foraminal stenosis. Its effect is augmented with ligamentum flavum hypertrophy and hypertrophic facet joint arthropathy. Consult Ortho Spine - plan for surgical intervention 11/06 - unfortunately was cancelled d/t surgeon illness, hopeful for 11/09 - continue home prn Zanaflex - pain medications - Tylenol, Toradol, lidocaine patch, oxycodone and Dilaudid - Daily senna added Will add DVT proh over the weekend while awaiting OR and decreased activity level (2) Difficulty urinating: Plan: secondary to above - bladder scan an straight cath prn - not having retention on admission This has resolved. (3) Type II diabetes mellitus: Plan: Controlled on Metformin and Mounjaro at home; held - Most recent A1C 5.6 BSG well controlled with minimal insulin needs - will d/c inuslin, but continue to check sugars. May need to readd if steroids/hyperglycemia post op Plan Chronic stable diagnoses: hypothyroidismTSH 2023 was normal, continue levothyroxine Hyperlipidemiacontinue statin HTN - continue amlodipine. losartan/HCTZ resumed, will hold prior to surgery VTE ppx: SCDs. lovenox for the weekend Dispo: continued inpatient stay, awaiting OR Admission and Anticipated Discharge Date Admission Date: November 04, 2024 Subjective Patient seen lying in bed. Did have an acute increase in pain early this morning when trying to roll over in bed. Pain has resolved with oxycodone Has been getting up to the bathroom independently moving bowels, no urinary issues Review of Systems Review of Systems: All systems reviewed & are unremarkable except as noted in Subjective Physical Exam Physical Exam: General: NAD, VS as above Resp: normal respiratory effort, lungs clear to auscultation CV: RRR, no murmur, Abd:soft, non tender, Extremities: Moves all extremities, Neuro: A&O x3, Results & Data Results & Data Vital Signs (Past 12 Hours) Vital Signs Temp Pulse Resp BP Pulse Ox O2 Del Method 11/07/24 08:25 98.1 F 73 16 147/79 H 98 Room Air 11/07/24 03:51 97.9 F 65 16 144/81 H 98 Room Air Laboratory Results POC glucose reviewed PG Care Time/CCT Total # of Minutes Spent Total Time Spent with Patient: Total time spent is greater than 50% in coordination of care (as documented) at patient's floor/unit and/or counseling patient: Coding Level of Care Code 44660 SUB INP/OBS CARE 12/26MIN Diagnoses Foraminal stenosis of lumbar region M48.061 Difficulty urinating R39.198 Type II diabetes mellitus E11.9
--- NOTE | 2024-11-08 09:44 | Hospitalist Progress Note ---
Date of Service November 08, 2024 Assessment & Plan (1) Foraminal stenosis of lumbar region: Plan: hx lumbar radiculopathy s/p [address] Daley [place] [address] lumbar spine: severe intervertebral disc space narrowing with circumferential disc osteophyte complex at L2-L3 resulting in severe canal and moderate to severe bilateral foraminal narrowing. L3-S1 right sided stephanie and screw fusion hardware intact. also showed several nonobstructing bilateral nephrolithiasis MRI Lumbar spine: L2-L3: Diffuse disc bulge with decreased height and endplate bony hypertrophy, indenting ventral thecal aspect with mild spinal canal stenosis and bilateral moderate neural foraminal stenosis. Its effect is augmented with ligamentum flavum hypertrophy and hypertrophic facet joint arthropathy. Consult Ortho Spine - plan for surgical intervention 11/06 - unfortunately was cancelled d/t surgeon illness, hopeful for 11/09 - continue home prn Zanaflex - pain medications - Tylenol, Toradol, lidocaine patch, oxycodone and Dilaudid - Daily senna added, prx miralax (2) Difficulty urinating: Plan: secondary to above - bladder scan an straight cath prn - not having retention on admission This has resolved. (3) Type II diabetes mellitus: Plan: Controlled on Metformin and Mounjaro at home; held - Most recent A1C 5.6 BSG well controlled with minimal insulin needs - will d/c inuslin, but continue to check sugars. May need to readd if steroids/hyperglycemia post op Plan Chronic stable diagnoses: hypothyroidismTSH 2023 was normal, continue levothyroxine Hyperlipidemiacontinue statin HTN - continue amlodipine. losartan/HCTZ held preoperatively VTE ppx: SCDs. lovenox held in anticipation for OR Dispo: continued inpatient stay, awaiting OR Admission and Anticipated Discharge Date Admission Date: November 04, 2024 Subjective Patient seen lying in bed, anticipated for surgery tomorrow has not had a BM recently - will add miralax pain is controlled if he doesnt twist Review of Systems Review of Systems: All systems reviewed & are unremarkable except as noted in Subjective Physical Exam Physical Exam: General: NAD, VS as above Resp: normal respiratory effort, lungs clear to auscultation CV: RRR, no murmur, Abd:soft, non tender, Extremities: Moves all extremities, Neuro: A&O x3, Results & Data Results & Data Vital Signs (Past 12 Hours) Vital Signs Temp Pulse Resp BP Pulse Ox O2 Del Method 11/08/24 08:00 97.7 F 67 16 146/86 H 96 Room Air Laboratory Results POC glucose reviewed PG Care Time/CCT Total # of Minutes Spent Total Time Spent with Patient: Total time spent is greater than 50% in coordination of care (as documented) at patient's floor/unit and/or counseling patient: Coding Level of Care Code 80212 SUB INP/OBS CARE 2/35MIN Diagnoses Foraminal stenosis of lumbar region M48.061 Difficulty urinating R39.198 Type II diabetes mellitus E11.9
--- NOTE | 2024-11-08 10:38 | Orthopedic Progress Note ---
Date of Service November 08, 2024 Assessment & Plan (1) Lumbosacral spondylosis with radiculopathy: Plan: At this time make him n.p.o. after midnight with plan for surgery tomorrow. Admission and Anticipated Discharge Date Admission Date: November 04, 2024 Subjective Patient continues to struggle with back and particularly left groin and leg pain. Physical Exam Physical Exam: Patient is currently bed. He is most comfortable lying supine. Results & Data Vital Signs (Past 12 Hours) Vital Signs Temp Pulse Resp BP Pulse Ox O2 Del Method 11/08/24 08:00 36.5 C 67 16 146/86 H 96 Room Air
[2024-11-08] MEDS: POLYETHYLENE (MIRALAX) 17 GM PACK PO PRN (16:00)
[2024-11-09] MEDS: SODIUM CHLORIDE 0.9% 1,000 ML IV SCH (00:38)
[2024-11-09] MEDS ORDERED: ePHEDrine sulfate 50 MG/ML AMP ONE (12:23)
[2024-11-09] MEDS ORDERED: MIDAZOLAM HCL 1 MG/ML 2ML VIAL ONE (12:23)
[2024-11-09] MEDS ORDERED: ONDANSETRON INJ 2 MG/ML 2 ML VIAL ONE ×2 (12:23→14:42)
[2024-11-09] MEDS ORDERED: DEXAMETHASONE SOD INJ 4 MG/ML VIAL ONE (12:23)
[2024-11-09] MEDS ORDERED: LIDOCAINE 2% 2 ML VIAL/AMP(20MG/ML) INFIL ONE (12:23)
[2024-11-09] MEDS ORDERED: fentaNYL citrate PF 100 MCG/2 ML VIAL ONE (12:23)
[2024-11-09] MEDS ORDERED: SUCCINYLCHOLINE CHLORIDE 20 MG/ML 10 ML VIAL IV ONE (12:23)
[2024-11-09] MEDS ORDERED: PHENYLEPHRINE HCL 10 MG/ML VIAL ONE (12:23)
[2024-11-09] MEDS ORDERED: PROPOFOL IV EMULSION 10 MG/ML 20 ML VIAL IV ONE ×2 (12:23→14:40)
[2024-11-09] MEDS ORDERED: NEOSTIGMINE METHYLSULFATE 1 MG/ML 10ML VIAL ONE (12:23)
[2024-11-09] MEDS ORDERED: GLYCOPYRROLATE 0.2 MG/ML VIAL ONE (12:23)
[2024-11-09] MEDS ORDERED: ROCURONIUM BROMIDE 10 MG/ML 5 ML VIAL IV ONE ×2 (12:26→15:12)
[2024-11-09] MEDS ORDERED: PROMETHAZINE HCL 6.25 MG in SODIUM CHLORIDE 0.9% 50 ML IV PRN (12:44)
[2024-11-09] MEDS ORDERED: ePHEDrine sulfate 50 MG/ML AMP IV PRN (12:44)
[2024-11-09] MEDS ORDERED: DROPERIDOL 5 MG/2 ML VIAL IV PRN (12:44)
[2024-11-09] MEDS ORDERED: ATROPINE SULFATE 0.1 MG/ML 10ML SYR IV PRN (12:44)
--- NOTE | 2024-11-09 13:39 | History & Physical Bridge Note ---
Date of Service November 09, 2024 History & Physical Bridge Note I have examined the patient, reviewed the History & Physical and in the interval since the performance of the History & Physical I have noted the following changes of clinical significance: no changes noted Decompression fusion L2-L3 and removal L3 screws
--- NOTE | 2024-11-09 13:40 | Hospitalist Progress Note ---
Date of Service November 09, 2024 Assessment & Plan (1) Foraminal stenosis of lumbar region: Plan: Patient presented to the ER on 11/03/24 for severe left sided back pain that radiates to the front/groin and down to his left knee. hx lumbar radiculopathy s/p [address] Daley [place] [address] lumbar spine: severe intervertebral disc space narrowing with circumferential disc osteophyte complex at L2-L3 resulting in severe canal and moderate to severe bilateral foraminal narrowing. L3-S1 right sided stephanie and screw fusion hardware intact. also showed several nonobstructing bilateral nephrolithiasis MRI Lumbar spine: L2-L3: Diffuse disc bulge with decreased height and endplate bony hypertrophy, indenting ventral thecal aspect with mild spinal canal stenosis and bilateral moderate neural foraminal stenosis. Its effect is augmented with ligamentum flavum hypertrophy and hypertrophic facet joint arthropathy. Consult Ortho Spine - plan for surgical intervention 11/09 - continue home prn Zanaflex - pain medications - Tylenol, Toradol, lidocaine patch, oxycodone and Dilaudid - Daily senna added, prx miralax (2) Difficulty urinating: Plan: secondary to above, resolved. - bladder scan an straight cath prn - not having retention on admission (3) Type II diabetes mellitus: Plan: Controlled on Metformin and Mounjaro at home; held - Most recent A1C 5.6 BSG well controlled with minimal insulin needs - d/c inuslin, but continue to check sugars. May need to readd if steroids/hyperglycemia post op Plan Chronic stable diagnoses: hypothyroidismTSH 2023 was normal, continue levothyroxine Hyperlipidemiacontinue statin HTN - continue amlodipine. losartan/HCTZ held preoperatively VTE ppx: SCDs. lovenox held in anticipation for OR Dispo: continued inpatient stay, awaiting OR Admission and Anticipated Discharge Date Admission Date: November 04, 2024 Subjective Patient seen and examined this morning. Patients at bedside. Patient was reporting back pain at time of encounter. He denied any additional complaints. he reports he is urinating without difficulty. Physical Exam Constitutional: WD/WN, vitals as above Eyes: PERRL, conjunctivae normal, anicteric sclerae Respiratory: breathing unlabored Cardiovascular: well perfused Psychiatric: A+Ox3, euthymic affect Results & Data Results & Data Vital Signs (Past 12 Hours) Vital Signs Temp Pulse Resp BP Pulse Ox O2 Del Method 11/09/24 12:10 36.8 C 75 18 148/85 H 100 Room Air 11/09/24 07:12 37.1 C 71 18 148/78 H 99 Room Air PG Care Time/CCT Total # of Minutes Spent Total Time Spent with Patient: Total time spent is greater than 50% in coordination of care (as documented) at patient's floor/unit and/or counseling patient: Coding Level of Care Code 68143 SUB INP/OBS CARE 12/26MIN Diagnoses Foraminal stenosis of lumbar region M48.061 Difficulty urinating R39.198 Type II diabetes mellitus E11.9
[2024-11-09] MEDS: ceFAZolin 2000MG 2,000 MG/15 ML SYR IV ONE (14:03)
[2024-11-09] MEDS: ceFAZolin 330 MG/ML 1 GM VIAL ONE (14:03)
[2024-11-09] MEDS ORDERED: TRANEXAMIC ACID / 0.7% NACL 1000MG/100ML BAG IV ONE (14:22)
[2024-11-09] MEDS ORDERED: SUGAMMADEX SODIUM 200 MG/2 ML VIAL IV ONE (14:40)
[2024-11-09] MEDS ORDERED: HYDROmorphone INJ 2 MG/ML SYR/VIAL ONE (14:49)
[2024-11-09] MEDS: BUPIVACAINE/EPINEPHRINE 0.25% 1:200,000 30 ML VIAL ONE (14:50)
[2024-11-09] MEDS ORDERED: SODIUM CHLORIDE 0.9% PF INJ 10 ML VIAL ONE (14:50)
[2024-11-09] MEDS: FLOSEAL HEMOSTATIC MATRIX 10ML TOP ONE (16:52)
--- NOTE | 2024-11-09 16:58 | Operative Report ---
Post Operative Report Pre & Post Diagnosis Operation Date: 11/09/24 07:00 Pre-Op Diagnosis: (1) Lumbosacral spondylosis with radiculopathy: #2 far lateral extraforaminal disc herniation L1-2 on the left Post-Op Diagnosis: Same I identified the patient and participated in the time-out.: Yes Procedure Operation Date: 11/09/24 07:00 Actual Procedures #1 extraforaminal foraminal disc herniation L2-L3 on the left. #2 removal of instrumentation L3 pedicle screw and connector. #3 lumbar decompression with bilateral medial facetectomies and foraminotomies L2-L3. #4 posterior spinal fusion L2-L3. #5 placement posterior instrumentation with pedicle screws and L2-3 and connectors at the L3-L4 stephanie. #6 interbody fusion L2-L3. #7 placement Spira 13 x 26 mm at L2-L3. #8 placement of locally harvested morselized autograft posterior gutters. #9 placement of infuse collagen sponge combined with Koros in the posterior lateral gutters and os design and interbody space. #10 placement of versa wrap over the exposed dura. Surgeon Loyd Daley, DO Electronic Device Monitor Eli Nichols Estimated Blood Loss 600 Findings See Below The patient is 6 foot 1 weighing over 127 kg with a BMI of 37. This combined with an EBL of 600 cc created significant technical difficulty from positioning exposure and the procedure itself adding at least 50% increased operative time. I am recommending a modifier 22. Specimens None Indications This is a 64-year-old male presents publish diagnosis of failing course of nonoperative care and having consistent decline in function is here for the above-mentioned procedure. Description of Procedure Patient was met with identified informed consent obtained. Patient was then taken to the operative suite underwent send patient placed in a prone position on the Brandyn table atop the Fer frame. All bony prominences well-padded e yes inspected to ensure no external precipice spinal. This point lumbar spine was prepped and draped in normal sterile fashion. Sharp dissection with assistance bradycardia form down to and exposing the lamina transverse processes of L1 on the left lamina transverse processes of L2 bilaterally and instrumentation at L3-[address]. By [address] of a extraforaminal approach at L1 to remove the intertransverse ligament exposed to compressed L1 nerve root and excised removed several fragments of disc material in the foramen extraforaminal area L1-2 on the right causing significant compression of the exiting roots. After this complete I performed a complete laminectomy of L1 including bilateral medial facetectomies and foraminotomies since addressing severe subarticular and foraminal stenosis. Pedicle screws were then placed in L1 bilaterally. I removed the pedicle screw at L3 as well as the connector. A new connector was then placed on the exposed stephanie and a stephanie was placed connecting the new connector with the L2 pedicle screws. By way of a transforaminal approach on the left complete discectomy of L2-L3 was performed endplates guided to subcortical and bone and a 13 x 26 mm spiral cage filled with os designed tapped in position. The rods were then locked in final position bilaterally. The transverse processes of L2 and L3 burred to subcortical bleeding bone. Infuse collagen sponge bath Koros and local autograft placed in the posterior gutters. Versa wrap placed over the exposed dura. 15 round ARIAS drain inserted inserted. The incision was then closed with 1 Vicryl the fascia 2-0 Vicryl subcutaneously and 4 Monocryl for final skin closure. Steri-Strips sterile dressing placed. Patient waken taken to PACU stable condition. Please note spinal cord monitoring was utilized at the procedure no changes noted. Lastly Eli Nichols was present out the entire procedure involved in patient positioning complex portion of the surgery and fascial closure. I attest to the content of the Intraoperative Record and any orders documented therein. Any exceptions are noted below.
[2024-11-09] MEDS: HYDROmorphone INJ 2 MG/ML SYR/VIAL IV PRN (17:22)
[2024-11-09] MEDS: fentaNYL citrate PF 100 MCG/2 ML VIAL IV PRN (17:45)
--- NOTE | 2024-11-09 18:18 | Anesthesiology Progress Note ---
Date of Service November 09, 2024 Anesthesia Post Procedure Vital Signs Vital Signs: Temp Pulse Pulse Resp BP Pulse Ox O2 Del Method 11/09/24 18:10 103 H 20 149/81 H 98 Nasal Cannula 11/09/24 18:00 98.2 F 105 H 10 L 138/78 95 Nasal Cannula 11/09/24 17:50 103 H 10 L 129/82 98 Nasal Cannula 11/09/24 17:40 95 H 8 L 133/84 95 Nasal Cannula 11/09/24 17:30 101 H 10 L 139/84 95 Nasal Cannula 11/09/24 17:20 103 H 15 135/80 97 Nasal Cannula 11/09/24 17:12 97.7 F 108 H 20 139/86 100 Oxymask 11/09/24 12:10 98.2 F 75 18 148/85 H 100 Room Air 11/09/24 07:12 98.8 F 71 18 148/78 H 99 Room Air 11/08/24 19:54 97.9 F 72 18 158/88 H 98 Room Air O2 Flow Rate 11/09/24 18:10 2 11/09/24 18:00 2 11/09/24 17:50 2 11/09/24 17:40 2 11/09/24 17:30 2 11/09/24 17:20 2 11/09/24 17:12 10 11/09/24 12:10 11/09/24 07:12 11/08/24 19:54 Pain Intensity Lower Back: Pain Intensity: 6 Transfer of Care Handoff Completed per policy Notes Mental Status: alert / awake / arousable and participated in evaluation Patient Amnestic to Procedure: Yes Nausea / Vomiting: adequately controlled Pain: adequately controlled Airway Patency, RR, SpO2: stable & adequate BP & HR: stable & adequate Hydration State: stable & adequate Anesthetic Complications: no major complications apparent and Pt Satisfied with anesthetic care
[2024-11-09] MEDS ORDERED: traMADol HCL 50 MG TABLET PO PRN ×2 (19:08)
[2024-11-09] MEDS ORDERED: NON-FORMULARY MEDICATION (Tadalafil 5 mg tablet) PO PRN (19:08)
[2024-11-09] MEDS ORDERED: ONDANSETRON INJ 2 MG/ML 2 ML VIAL IV PRN (19:08)
[2024-11-09] MEDS ORDERED: SOD PHOSPHATE/SOD BIPHOSPHATE ENEMA 132 ML BTL PR PRN (19:08)
[2024-11-09] MEDS ORDERED: diphenhydrAMINE Capsule 25 MG CAP PO PRN (19:08)
[2024-11-09] MEDS ORDERED: METOCLOPRAMIDE HCL INJ 5 MG/ML 2 ML VIAL IV PRN (19:08)
[2024-11-09] MEDS ORDERED: ACETAMINOPHEN 1,000 MG/100 ML VIAL IV PRN (19:08)
[2024-11-09] MEDS ORDERED: PROMETHAZINE 12.5 MG/50.5 ML BAG IV PRN (19:08)
[2024-11-09] MEDS ORDERED: ALUMINUM/MAGNESIUM SUSP 30 ML UDC PO PRN (19:08)
[2024-11-09] MEDS ORDERED: NALOXONE HCL 0.4 MG/1 ML VIAL/CARP IV PRN (19:08)
[2024-11-09] MEDS ORDERED: FAMOTIDINE 20 MG TAB PO PRN (19:08)
[2024-11-09] MEDS ORDERED: LORazepam 0.5 MG TAB PO PRN (19:08)
[2024-11-09] MEDS ORDERED: MAGNESIUM HYDROXIDE SUSP 30 ML UDC PO PRN (19:08)
[2024-11-09] MEDS ORDERED: LORazepam 2 MG/1 ML VIAL IV PRN (19:08)
[2024-11-09] MEDS ORDERED: DO NOT ADMINISTER PNEUMOCOCCAL VACCINE PRN (19:08)
[2024-11-09] MEDS ORDERED: ONDANSETRON 4 MG OD TAB PO PRN ×2 (19:08)
[2024-11-09] MEDS ORDERED: hydrOXYzine HCl 25 MG TAB PO PRN (19:08)
[2024-11-09] MEDS ORDERED: bisacodyL 10 MG SUPP PR PRN (19:08)
[2024-11-09] MEDS ORDERED: DO NOT ADMINISTER FLU VACCINE PRN (19:08)
[2024-11-09] MEDS: fentaNYL citrate PF 100 MCG/2 ML VIAL ONE (19:12)
[2024-11-09] MEDS: HYDROmorphone INJ 1 MG/ML SYRINGE IV PRN (19:26)
[2024-11-09] MEDS: DOCUSATE SODIUM/SENNA 50/8.6MG TAB PO SCH (21:28)
[2024-11-09] MEDS: ceFAZolin 2000MG 2,000 MG/15 ML SYR IV SCH (22:39)
[2024-11-10] MEDS: HYDROmorphone INJ 0.5 MG/0.5 ML SYR IV PRN (05:11)
[2024-11-10 05:57] LABS: Basophils # (auto) 0.03 K/uL (0.00-0.20); Basophils % (auto) 0.2 %; Eosinophils # (auto) 0.01 K/uL (0.00-0.50); Eosinophils % (auto) 0.1 %; Hematocrit (blood only) 39.2 % (42.0-52.0); Hemoglobin 13.3 g/dl (14.0-18.0); Immature Granulocytes # (auto) 0.08 K/uL (0.01-0.20); Immature Granulocytes % (auto) 0.6 %; Lymphocytes # (auto) 1.41 K/uL (1.20-3.40); Lymphocytes % (auto) 10.7 %; Mean Corpuscular Hemoglobin 30.4 pg (25.0-34.0); Mean Corpuscular Hgb Conc 33.9 g/dL (32.0-36.0); Mean Corpuscular Volume 89.7 fL (80.0-100.0); Mean Platelet Volume 9.9 fL (9.4-12.4); Monocytes % (auto) 14.4 %; Neutrophils # (auto) 9.73 K/uL (1.40-6.50); Platelet Count 184 K/uL (130-400); RDW Standard Deviation 42.9 fL (36.4-46.3); Red Blood Count 4.37 M/uL (4.70-6.10); White Blood Count 13.16 K/ul (4.8-10.8)
[2024-11-10] MEDS: POLYETHYLENE (MIRALAX) 17 GM PACK PO SCH (06:09)
[2024-11-10 06:13] LABS: BUN Creatinine Ratio 15.2 (10-20); Calcium 9.3 mg/dl (8.6-10.3); Creatinine Clr Calc Pharmacy 105.3 ml/min; Potassium 4.2 mmol/L (3.5-5.1)
[2024-11-10] MEDS: SENNA 8.6 MG TAB PO PRN (07:57)
[2024-11-10] MEDS: oxyCODONE HCL IR 5 MG TAB (IMMEDIATE RELEASE) PO PRN (07:57)
[2024-11-10] MEDS: ACETAMINOPHEN 500 MG TAB PO PRN (07:58)
[2024-11-10] MEDS: ASCORBIC ACID 500 MG TAB PO SCH (07:59)
[2024-11-10] MEDS: VITAMIN B COMPLEX TAB PO SCH (07:59)
[2024-11-10] MEDS: CHOLECALCIFEROL 25 MCG (1000 UNITS) TAB PO SCH (07:59)
[2024-11-10] MEDS: MULTIVITAMIN TAB PO SCH (07:59)
--- NOTE | 2024-11-10 07:59 | Fluoroscopy Report ---
FL lumbar spine 2-3V CLINICAL HISTORY: L2-L3 DECOMPRESSION AND FUSION TECHNIQUE: 2 views were obtained with the C-arm in the OR with the above procedure. Total fluoroscopy time was 16.3 seconds. Radiation dose was 11.6 mGy. Comparison: Comparison is made to MRI lumbar spine 11/20/2024 FINDINGS/IMPRESSION: Intraoperative images were obtained of L2-L3 discectomy and fusion. Please correlate with intraoperative fluoroscopy and operative report. ACT 112: Negative or not required by law. Electronically signed by: Mauricio Romero M.D. 11/10/2024 7:53 AM
[2024-11-10] MEDS: dexAMETHasone 6 MG in SYRINGE 0 ML IV SCH (08:03)
--- NOTE | 2024-11-10 08:56 | Orthopedic Progress Note ---
Date of Service November 10, 2024 Assessment & Plan (1) Lumbosacral spondylosis with radiculopathy: Plan: This time initiate physical therapy monitor his ARIAS output. Pérez catheter to be discontinued today. Hopefully discharge home in the next few days. Admission and Anticipated Discharge Date Admission Date: November 04, 2024 Subjective Back pain is controlled leg pain markedly improved Physical Exam Physical Exam: Patient is currently bed. Is comfortable. Is constricted testing. Results & Data Vital Signs (Past 12 Hours) Vital Signs Temp Pulse Resp BP BP Pulse Ox O2 Del Method 11/10/24 07:39 36.9 C 107 H 18 135/87 97 Room Air 11/10/24 02:00 36.9 C 105 H 20 115/81 95 Room Air 11/09/24 22:10 37 C 97 H 18 124/74 97 Room Air Queries Orthopedic Spine Obesity: Yes
--- NOTE | 2024-11-10 12:53 | Hospitalist Progress Note ---
Date of Service November 10, 2024 Assessment & Plan (1) Foraminal stenosis of lumbar region: Plan: Patient presented to the ER on 11/03/24 for severe left sided back pain that radiates to the front/groin and down to his left knee. hx lumbar radiculopathy s/p [address] Daley in [address] lumbar spine: severe intervertebral disc space narrowing with circumferential disc osteophyte complex at L2-L3 resulting in severe canal and moderate to severe bilateral foraminal narrowing. L3-S1 right sided stephanie and screw fusion hardware intact. also showed several nonobstructing bilateral nephrolithiasis MRI Lumbar spine: L2-L3: Diffuse disc bulge with decreased height and endplate bony hypertrophy, indenting ventral thecal aspect with mild spinal canal stenosis and bilateral moderate neural foraminal stenosis. Its effect is augment ed with ligamentum flavum hypertrophy and hypertrophic facet joint arthropathy. Consult Ortho Spine - s/p spinal surgery 11/[address] Daley - Tabares catheter to be revmoed 11/10 - continue home prn Zanaflex - pain medications - Tylenol, Toradol, lidocaine patch, oxycodone and Dilaudid - Daily senna added, prx miralax CBC/BMP reviewed 11/10 - stable, leukocytosis likely from dexamethasone/surgery. Kidney function/electrolytes stable. (2) Difficulty urinating: Plan: secondary to above, resolved. -tabares catheter being removed 11/10 -continue to bladder scan frequently in the event of urinary retention following surgery -straight cath prn. (3) Type II diabetes mellitus: Plan: Controlled on Metformin and Mounjaro at home; held - Most recent A1C 5.6 BSG well controlled with minimal insulin needs - d/c insulin, but continue to check sugars. May need to readd if steroids/hyperglycemia post op BSG 11/10 - , continue to monitor closely with steroid use. Plan Chronic stable diagnoses: hypothyroidismTSH 2023 was normal, continue levothyroxine Hyperlipidemiacontinue statin HTN - continue amlodipine. losartan/HCTZ held preoperatively VTE ppx: SCDs. lovenox held in anticipation for OR Dispo: anticipate discharge within the next 1-2 days. Admission and Anticipated Discharge Date Admission Date: November 04, 2024 Subjective Patient seen and examined this morning. Patient underwent surgery with Dr. Daley 11/09. He reports back pain near the site the surgery occurred. He feels he is ready to get his catheter out today. He was able to ambulate to his door yesterday evening and was looking forward to walking more today. He denied any additional complaints. Results & Data Results & Data Vital Signs (Past 12 Hours) Vital Signs Temp Pulse Resp BP Pulse Ox O2 Del Method 11/10/24 07:39 36.9 C 107 H 18 135/87 97 Room Air 11/10/24 02:00 36.9 C 105 H 20 115/81 95 Room Air PG Care Time/CCT Total # of Minutes Spent Total Time Spent with Patient: Total time spent is greater than 50% in coordination of care (as documented) at patient's floor/unit and/or counseling patient: Coding Level of Care Code 06946 SUB INP/OBS CARE 2/35MIN Diagnoses Foraminal stenosis of lumbar region M48.061 Difficulty urinating R39.198 Type II diabetes mellitus E11.9
--- NOTE | 2024-11-11 10:17 | Orthopedic Progress Note ---
Date of Service November 11, 2024 Assessment & Plan (1) Lumbosacral spondylosis with radiculopathy: Plan: At this time continue physical therapy monitor his ARIAS operatively discharge home tomorrow. Admission and Anticipated Discharge Date Admission Date: November 04, 2024 Subjective Back pain worse today. Leg pain still markedly improved. He is tolerating therapy. Physical Exam Physical Exam: Patient is in bed at this time. Discussed when to testing. Results & Data Vital Signs (Past 12 Hours) Vital Signs Temp Pulse Resp BP Pulse Ox O2 Del Method 11/11/24 07:14 37.5 C 105 H 18 132/79 94 Room Air Queries Orthopedic Spine Obesity: Yes
[2024-11-11] MEDS: CYCLOBENZAPRINE HCL 10 MG TAB PO PRN (12:34)
--- NOTE | 2024-11-11 12:42 | Hospitalist Progress Note ---
Date of Service November 11, 2024 Assessment & Plan (1) Foraminal stenosis of lumbar region: Plan: Patient presented to the ER on 11/03/24 for severe left sided back pain that radiates to the front/groin and down to his left knee. hx lumbar radiculopathy s/p [address] Daley [place] [address] lumbar spine: severe intervertebral disc space narrowing with circumferential disc osteophyte complex at L2-L3 resulting in severe canal and moderate to severe bilateral foraminal narrowing. L3-S1 right sided stephanie and screw fusion hardware intact. also showed several nonobstructing bilateral nephrolithiasis MRI Lumbar spine: L2-L3: Diffuse disc bulge with decreased height and endplate bony hypertrophy, indenting ventral thecal aspect with mild spinal canal stenosis and bilateral moderate neural foraminal stenosis. Its effect is augment ed with ligamentum flavum hypertrophy and hypertrophic facet joint arthropathy. Consult Ortho Spine - s/p spinal surgery 11/[address] Daley - s/p Tabares catheter removal 11/10 - continue home prn Zanaflex - pain medications - Tylenol, Toradol, lidocaine patch, oxycodone and Dilaudid - Daily senna added, prx miralax (2) Difficulty urinating: Plan: secondary to above, resolved. -tabares catheter removed 11/10 -continue to bladder scan frequently in the event of urinary retention following surgery -straight cath prn. (3) Type II diabetes mellitus: Plan: Controlled on Metformin and Mounjaro at home; held - Most recent A1C 5.6 BSG well controlled with minimal insulin needs - d/c insulin, but continue to check sugars. May need to readd if steroids/hyperglycemia post op BSG 11/10 - , continue to monitor closely with steroid use. Plan Chronic stable diagnoses: hypothyroidismTSH 2023 was normal, continue levothyroxine Hyperlipidemiacontinue statin HTN - continue amlodipine. losartan/HCTZ held preoperatively VTE ppx: SCDs. lovenox held in anticipation for OR Dispo: anticipate discharge 11/12 Admission and Anticipated Discharge Date Admission Date: November 04, 2024 Subjective Patient seen and examined this morning. Patient complains of back pain. He denied any additional complaints. Anticipating discharge home tomorrow. Physical Exam Constitutional: WD/WN, vitals as above Eyes: PERRL, conjunctivae normal, anicteric sclerae Respiratory: breathing unlabored Cardiovascular: well perfused Psychiatric: A+Ox3, euthymic affect Results & Data Results & Data Vital Signs (Past 12 Hours) Vital Signs Temp Pulse Resp BP Pulse Ox O2 Del Method 11/11/24 07:14 37.5 C 105 H 18 132/79 94 Room Air PG Care Time/CCT Total # of Minutes Spent Total Time Spent with Patient: Total time spent is greater than 50% in coordination of care (as documented) at patient's floor/unit and/or counseling patient: Coding Level of Care Code 87367 SUB INP/OBS CARE /25MIN Diagnoses Foraminal stenosis of lumbar region M48.061 Difficulty urinating R39.198 Type II diabetes mellitus E11.9
[2024-11-11 19:31] VITALS: TEMP 98.4
[2024-11-12 07:24] VITALS: BP 125/73; PULSE 80; RESP 16; O2SAT 95
--- NOTE | 2024-11-12 10:22 | Discharge Summary ---
Discharge Summary Date of Service November 12, 2024 Principal Dx & Hospital Course #1 = Principal Diagnosis (1) Foraminal stenosis of lumbar region: Patient presented to the ER on 11/03/24 for severe left sided back pain that radiates to the front/groin and down to his left knee. Has history of lumbar radiculopathy s/p [address] Daley in [address] revealed severe intervertebral disc space narrowing w/ circumferential disc osteophyte complex at L2-L3 resulting in severe canal and moderate-severe b/l foraminal narrowing. L3-S1 right sided stephanie and screw fusion hardware in tact MRI revealed L2-L3 diffuse bulge w/ decreased height and endplate bony hypertrophy. indenting ventral thecal aspect w/ mild spinal canal stenosis & b/l moderate neural foraminal stenosis. effect augmented with ligamentum flavum hypertrophy & hypertrophic face joint arthropathy. Patient underwent spinal surgery w/ Dr. Daley 11/09, had tabares removed 11/10 hx lumbar radiculopathy s/p [address] Daley in 2006 and 2011 Discharged home with pain medication per orthopedic service. (2) Difficulty urinating: secondary to above, resolved. (3) Type II diabetes mellitus: Resume outpatient medications. Plan Chronic stable diagnoses: hypothyroidismTS2023 was normal, continue levothyroxine Hyperlipidemiacontinue statin HTN - continue amlodipine. losartan/HCTZ held preoperatively Admission HPI Per Admitting Provider Patient is a 64-year-old male with past medical history of lumbar radiculopathy, hyperlipidemia, hypothyroidism, type 2 diabetes, hypertension, fatty liver disease. He presents today due to severe left-sided back pain that radiates to the front/groin and down to his left knee. He stated that the pain has been ongoing since mid September, but has progressively gotten worse over the past few days. He has tingling along with the pain. He stated for the past 3 to 4 days he has also had difficulty with urination, although is still able to urinate. He has been taking tramadol 3 times a day without relief. He had 2 lumbar surgeries in [address] Daley. He denies right sided back or groin pain. Patient denies fever, chills, headache, dizziness, lightheadedness, dyspnea, dyspnea on exertion, chest pain, abdominal pain, nausea, vomiting, diarrhea, constipation, hematuria, edema, numbness. Patient has had difficulty with MRI in the past due to claustrophobia, has had relief with Ativan in past. Will order as needed Ativan to get necessary lumbar spine MRI. Patient agreeable. To be assessed by Dr. Daley in AM. Patient's updated at bedside. Discharge Exam Constitutional WD/WN, vitals as above Eyes PERRL, conjunctivae normal, anicteric sclerae Respiratory breathing unlabored Cardiovascular well perfused Psychiatric A+Ox3, euthymic affect Discharge Plan Discharge Items Patient Disposition: Home - Self-Care Reason For Visit: BACK PAIN, LUMBAR STENOSIS Discharge Diagnosis: Lumbar spondylosis with radiculopathy and hernia nucleus pulposus L1-L2 Activity: As commented below Non-emergency contact: Primary Care Provider Call non-emergency contact if: you have any medication questions Follow-up/Referrals: Regine Paul CRNP [Primary Care Provider] - 11/19/24 11:00 am Diet: Regular Addtl Attending Provider Instructions: ACTIVITY RECOMMENDATIONS: SELF CARE INSTRUCTIONS AFTER THORACIC/LUMBAR FUSIONS 1. You may walk to your tolerance. It is good exercise for your legs and back. Expect some back and intermittent leg aches and pains. 2. You may perform "counter-top" level activities (make a sandwich, kaiser with a project, etc.). 3. No bending or lifting of more than 10 pounds or back twisting of any nature (roll like a log when turning in bed). 4. You may ride in a car for 20-30 minutes at a time. No driving until after your first visit with your doctor. 5. Frequent changes of position and restricting sitting to 30 minutes at a time will help limit the amount of back spasms and stiffness you may experience. 6. You may discontinue the use of ambulatory aids (cane, crutches, etc.) once your strength and confidence allow. 7. You may strategic planning analyst the shower and let water strike your incision when you arrive home at least once daily. Do not take a tub bath, sit in a hot tub or go into a swimming pool until after your first recheck in the office. 8. You may resume previous diet. SPECIAL CARE INSTRUCTIONS: VERY IMPORTANT TO READ AND REVIEW A. Your surgical incision has been closed with a cosmetic suture under the skin that will dissolve in about 6 weeks. In 14 days, you can use a pair of clean scissors and cut the suture that is left outside of the skin at the ends of your incision. 1. The small skin tapes can be removed 7 days after surgery if they have not fallen off by that point. 2. You may keep the wound open to air as much as possible to promote healing after post-op day number 5 unless told otherwise by your doctor. 3. If you think the wound looks like it is becoming infected (redness or worsening drainage) and/or you are experiencing fever, chill or worsening back pain and muscle spasms, contact the office so that we may evaluate you as soon as possible. B. Complications are uncommon, but please contact us if you have any signs or symptoms of: 1. wound infection (fever higher than 102.5 degrees F, redness, separation of wound, drainage, or increasing pain from the incision) 2. blood clots in legs (pain, swelling, redness and warmth in legs) 3. urinary tract infection (fever higher than 102.5 degrees F, burning upon urination or increased frequency of urination) 4. nerve problems (inability to walk on your toes or heels, numbness, loss of bowel or bladder control) 5. any other symptoms that concern you C. Please call the office at if you have any concerns or questions about your operation or recovery. D. No smoking! Smoking drastically decreases the chance of a solid fusion. E. Do not take any anti-inflammatory medications (Indocin, Advil, Motrin, Aspirin, Naprosyn, etc.) as these may inhibit the chance of a solid fusion. Tylenol is okay to take for pain. MANAGING PAIN AFTER SPINAL SURGERY 1. Narcotic medication is intended for short-term use and will be provided for surgical pain. Surgical pain usually lasts for a period of 4-6 weeks. Narcotic medication includes Percocet, Vicodin, Darvocet, Tylenol #3 or Lortab. 2. Longer-term pain is more appropriately treated with non-narcotic medication such as Tylenol ES. 3. Muscle spasm is not appropriately treated with narcotics. Muscle relaxers such as Soma, Flexeril or Skelaxin can be used along with Tylenol ES. 4. Remember that we all live with some "aches and pains". This is not unusual or uncommon after an injury or as we get older. a. Back pain is expected and may include muscle spasms for 4 to 6 weeks after surgery. The pain should gradually improve. If the pain worsens for no apparent reason, please contact the office. b. Intermittent leg pain may also be experienced and should not be concerned about unless it worsens for no apparent reason. If so, please contact the office. 5. We will provide appropriate medication within the normal guidelines of their prescribed use. We will also be very cautious and aware of potential abuse and extended duration of patients' medication needs. a. Pain medications are for your comfort and to assist with sleep and rest so that the tissue can heal. They are not provided in order to return to normal activity and should not be used through the day. To do so or worsening pain at night can result from ongoing tissue damage and development of tolerance to the prescribed medicine. 6. Please allow 2-3 days to process refills. Prescriptions will not be mailed but must be picked up at the office. FOLLOW UP VISIT: Keep your scheduled follow-up appointment. Any questions, please call the office at . Pending Studies at Discharge: No Stand-Alone Forms: My [facility] [employer], Smoking Cessation Medications and DC Order Prescriptions: New tramadol 50 mg tablet 50 mg PO Q6H PRN (Reason: pain, moderate) Qty: 30 0RF oxycodone 5 mg tablet 5 mg PO Q6H PRN (Reason: pain) Qty: 30 0RF cyclobenzaprine 10 mg Tablet 10 mg PO Q6 PRN (Reason: muscle spasm) Qty: 20 0RF Continued ondansetron 4 mg tablet,disintegrating 4 mg PO Q8 PRN (Reason: nausea) Qty: 20 1RF Rx Instructions: Take as needed for nausea losartan-hydrochlorothiazide 100-25 mg tablet 1 tab PO QAM Qty: 90 3RF levothyroxine 25 mcg tablet 25 mcg PO QAM Qty: 90 3RF tadalafil 5 mg tablet 5 mg PO DAILY PRN (Reason: sexual activity) Qty: 60 5RF tramadol 50 mg tablet 50 mg PO Q6H PRN (Reason: pain) Qty: 60 0RF tizanidine 2 mg tablet 2 mg PO Q8H PRN (Reason: muscle spasticity) Qty: 30 0RF amlodipine 5 mg tablet 5 mg PO QAM Qty: 90 3RF cholecalciferol (vitamin D3) 1,000 unit capsule 1,000 units PO QAM ascorbic acid (vitamin C) 500 mg capsule 500 mg PO QAM sennosides [Senokot] 8.6 mg tablet 8.6 mg PO BID PRN (Reason: prevent constipation) Rx Instructions: Take two times a day to prevent/treat constipation amoxicillin 500 mg tablet 2,000 mg PO ONCE PRN (Reason: dental procedures) Rx Instructions: 4 tabs 1 hour prior to procedure rosuvastatin 10 mg tablet 10 mg PO HS tirzepatide 5 mg/0.5 mL pen injector 5 mg subcut WK Rx Instructions: 5 mg subcutaneously once weekly; Saturday vitamin B complex Tablet 1 tab PO DAILY Men's 50 Plus Multivitamin 400-20-370 mcg Tablet 1 tab PO DAILY metformin 500 mg tablet See Rx Instructions .ROUTE .COMPLEX Rx Instructions: Take 1,000 mg PO in AM and 500mg PO in QPM Discharge Orders: Discharge Order (Routine); Ordered 11/12/24 Ordered By: Loyd Mckeon/Other Patient Handouts: Oxycodone Oral Tablet, Cyclobenzaprine Oral Tablet, Post-Op Tips: Back, After Back Surgery: Going Home Admission Data Admit Date/Time: 11/04/24 12:34 Attending Provider: Glenn Haney Admit Provider: Citlalli Boles Primary Care Provider: Regine Paul Other Providers: Caesar Pittman; Loyd Daley Other Interventions: Discharge Summary Assessment (RN) Last Done: 11/12/24 11:05 Hospital Stay Data Consultations 11/03/24 15:00 ED Decision to Admit Stat 11/03/24 15:01 Consult Orthopedic Spine Surgery Stat Procedures Performed Operation Date: 11/09/24 07:00 Actual Procedures p L2-L3 Decompression Fusion, with Spinal Cord Monitoring(Not Applicable) - Loyd Daley DO s L3 Screw Removal(Not Applicable) - Loyd Daley DO Diagnostic Imagining Performed 11/03/24 09:25 CT Abdomen and Pelvis [CT abd pelvis wo con] Stat CT lumbar spine wo con Stat 11/03/24 15:19 MRI Lumbar Spine [MR lumbar spine wo con] Urgent 11/09/24 06:37 FL lumbar spine 2-3V Routine Pending Results Patient Have Any Pending Studies at Discharge: No Discharge Instructions Given to Patient (Per Discharging Provider) ACTIVITY RECOMMENDATIONS: SELF CARE INSTRUCTIONS AFTER THORACIC/LUMBAR FUSIONS 1. You may walk to your tolerance. It is good exercise for your legs and back. Expect some back and intermittent leg aches and pains. 2. You may perform "counter-top" level activities (make a sandwich, kaiser with a project, etc.). 3. No bending or lifting of more than 10 pounds or back twisting of any nature (roll like a log when turning in bed). 4. You may ride in a car for 20-30 minutes at a time. No driving until after y our first visit with your doctor. 5. Frequent changes of position and restricting sitting to 30 minutes at a time will help limit the amount of back spasms and stiffness you may experience. 6. You may discontinue the use of ambulatory aids (cane, crutches, etc.) once your strength and confidence allow. 7. You may strategic planning analyst the shower and let water strike your incision when you arrive home at least once daily. Do not take a tub bath, sit in a hot tub or go into a swimming pool until after your first recheck in the office. 8. You may resume previous diet. SPECIAL CARE INSTRUCTIONS: VERY IMPORTANT TO READ AND REVIEW A. Your surgical incision has been closed with a cosmetic suture under the skin that will dissolve in about 6 weeks. In 14 days, you can use a pair of clean scissors and cut the suture that is left outside of the skin at the ends of your incision. 1. The small skin tapes can be removed 7 days after surgery if they have not fallen off by that point. 2. You may keep the wound open to air as much as possible to promote healing after post-op day number 5 unless told otherwise by your doctor. 3. If you think the wound looks like it is becoming infected (redness or worsening drainage) and/or you are experiencing fever, chill or worsening back pain and muscle spasms, contact the office so that we may evaluate you as soon as possible. B. Complications are uncommon, but please contact us if you have any signs or symptoms of: 1. wound infection (fever higher than 102.5 degrees F, redness, separation of wound, drainage, or increasing pain from the incision) 2. blood clots in legs (pain, swelling, redness and warmth in legs) 3. urinary tract infection (fever higher than 102.5 degrees F, burning upon urination or increased frequency of urination) 4. nerve problems (inability to walk on your toes or heels, numbness, loss of bowel or bladder control) 5. any other symptoms that concern you C. Please call the office at if you have any concerns or questions about your operation or recovery. D. No smoking! Smoking drastically decreases the chance of a solid fusion. E. Do not take any anti-inflammatory medications (Indocin, Advil, Motrin, Aspirin, Naprosyn, etc.) as these may inhibit the chance of a solid fusion. Tylenol is okay to take for pain. MANAGING PAIN AFTER SPINAL SURGERY 1. Narcotic medication is intended for short-term use and will be provided for surgical pain. Surgical pain usually lasts for a period of 4-6 weeks. Narcotic medication includes Percocet, Vicodin, Darvocet, Tylenol #3 or Lortab. 2. Longer-term pain is more appropriately treated with non-narcotic medication such as Tylenol ES. 3. Muscle spasm is not appropriately treated with narcotics. Muscle relaxers such as Soma, Flexeril or Skelaxin can be used along with Tylenol ES. 4. Remember that we all live with some "aches and pains". This is not unusual or uncommon after an injury or as we get older. a. Back pain is expected and may include muscle spasms for 4 to 6 weeks after surgery. The pain should gradually improve. If the pain worsens for no apparent reason, please contact the office. b. Intermittent leg pain may also be experienced and should not be concerned about unless it worsens for no apparent reason. If so, please contact the office. 5. We will provide appropriate medication within the normal guidelines of their prescribed use. We will also be very cautious and aware of potential abuse and extended duration of patients' medication needs. a. Pain medications are for your comfort and to assist with sleep and rest so that the tissue can heal. They are not provided in order to return to normal activity and should not be used through the day. To do so or worsening pain at night can result from ongoing tissue damage and development of tolerance to the prescribed medicine. 6. Please allow 2-3 days to process refills. Prescriptions will not be mailed but must be picked up at the office. FOLLOW UP VISIT: Keep your scheduled follow-up appointment. Any questions, please call the office at . Total Time Total Time Spent Total Time Spent (In Minutes): 40 Total Time Includes: Examination of the Patient, Discharge Planning, Medication Reconciliation and Communication With Other Providers Coding Level of Care Code 73333 INP/OBS DISCH >30 MIN Diagnoses Foraminal stenosis of lumbar region M48.061 Difficulty urinating R39.198 Type II diabetes mellitus E11.9
--- NOTE | 2024-11-12 10:27 | Orthopedic Progress Note ---
Date of Service November 12, 2024 Assessment & Plan (1) Lumbosacral spondylosis with radiculopathy: Plan: At this time he is progressed appropriately. ARIAS drain decreasing. Subsequently set him up for discharge home. Will see him in the office in 2 weeks for x-rays and evaluation. Admission and Anticipated Discharge Date Admission Date: November 04, 2024 Subjective Back pain controlled leg pain improved. Muscle relaxer is helping his back spasm significantly. Physical Exam Physical Exam: Patient is currently in bed. Is comfortable. Good strength testing. Results & Data Vital Signs (Past 12 Hours) Vital Signs Temp Pulse Resp BP Pulse Ox O2 Del Method 11/12/24 07:23 36.9 C 80 16 125/73 95 Room Air Queries Orthopedic Spine Obesity: Yes
== END 2024-11-12 12:05 | disposition home or self-care (01) | DRG 402 ==
LOC: ED 08:49 → EDINP 15:54 → INTOOBSV 15:54 → SUATTDRO 15:54 → 3W 17:28 → SUATTDRO 11-04 12:34 → 3W 11-04 14:00 → 3E 11-08 15:37
DX: M47.27 Other spondylosis with radiculopathy, lumbosacral region; I10 Essential (primary) hypertension; N20.0 Calculus of kidney; M51.16 Intervertebral disc disorders with radiculopathy, lumbar region; Z83.3 Family history of diabetes mellitus; E87.6 Hypokalemia; E66.9 Obesity, unspecified; E78.5 Hyperlipidemia, unspecified; Z79.84 Long term (current) use of oral hypoglycemic drugs; R33.9 Retention of urine, unspecified; Z68.37 Body mass index [BMI] 37.0-37.9, adult; E11.9 Type 2 diabetes mellitus without complications; E03.9 Hypothyroidism, unspecified

== ENCOUNTER 2024-11-18 09:04 | Inpatient (IN) ==
--- NOTE | 2024-11-18 09:26 | Emergency Department Note ---
Impression & Plan Ambulatory dysfunction, Lumbar radiculopathy, Foraminal stenosis of lumbar region ED Provider Note CHIEF COMPLAINT: Back pain HISTORY OF PRESENTING ILLNESS: This 64-year-old male patient presents to the emergency department with his for evaluation of back pain. The patient had back surgery by Dr. Daley 8 to 9 days ago per patient. He states that the pain has been worsening for the past 5 days. Having significant muscle spasms of the right side of his back. He is having trouble getting up and down because of the pain and needs significant help to get up and down. He states that walking or laying flat helps relieve the pain. However, just standing or sitting makes the pain a lot worse. He states that he has not had much improvement from the symptoms. Denies any loss of control of their bowel or bladder functions. Denies any numbness of their legs. Denies weakness of their legs. Denies any saddle paresthesias. Denies abdominal pain, nausea, or vomiting. Denies urinary symptoms or changes in their BMs other than looser stools from the stool softeners. Denies any injury or trauma. The incision site looks good per patient without redness or discharge. No fevers. Denies chest pain or SOB. He rates his pain as 9/10. He has been taking his oxycodone, tramadol, and Flexeril as prescribed without relief. He was started on a Medrol Dose Vivek 3 days ago, but no real change in his symptoms other than maybe being able to sleep better. He is not on any blood thinners. Per review of the patient's admission/surgical note: The patient presented to the ER on 11/03/24 for severe left-sided back pain that radiated to the front/groin and down to his left knee. The patient had [address] surgeries [address] Daley in [address] revealed severe intervertebral disc space narrowing w/ circumferential disc osteophyte complex at L2-L3 resulting in severe canal and moderate-severe b/l foraminal narrowing. L3-S1 right sided stephanie and screw fusion hardware in tact. MRI revealed L2-L3 diffuse bulge w/ decreased height and endplate bony hypertrophy. indenting ventral thecal aspect w/ mild spinal canal stenosis & b/l moderate neural foraminal stenosis. effect augmented with ligamentum flavum hypertrophy & hypertrophic face joint arthropathy. Patient underwent spinal surgery w/ Dr. Daley 11/09/24, had tabares removed 11/10/24. The plan was for the patient to be seen as an outpatient 2 weeks after discharge for x-rays and evaluation. The patient was prescribed oxycodone 5 mg every 6 hours as needed, tramadol 50 mg every 6 hours as needed, and Flexeril 10 mg every 6 hours as needed. REVIEW OF SYSTEMS: See HPI for pertinent positives and pertinent negatives. ALLERGIES: Celecoxib, Lisinopril MEDICATIONS: See below PAST MEDICAL HISTORY: See below PHYSICAL EXAM: VITALS: Vitals are noted on the nurse's note and reviewed by myself. GENERAL: Appears in pain, but non toxic in appearance and in no acute distress. Non-diaphoretic. SKIN: The patient's incision site is healing well without evidence for erythema, edema, warmth, or discharge. No other abnormal rashes, skin lesions, or pilonidal abscess noted on exam. HEAD: Normocephalic atraumatic. EYES: Pupils equal round and reactive to light and accommodation. The Extraocular movements intact. NECK: Supple without nuchal rigidity. No cervical spine tenderness. No paraspinous muscle tenderness. No lymphadenopathy. HEART: Regular rate and rhythm without murmurs gallops or rubs. LUNGS: Clear to auscultation bilaterally without wheezes, rales or rhonchi. ABDOMEN: Positive bowel sounds x 4. Normal tympanic percussion. Soft, nontender, without masses or organomegaly. Marx sign negative. MUSCULOSKELETAL: There is mild tenderness over the lumbar spinous processes. There is maximal tenderness over the paraspinous muscles on the right side radiating into the right buttocks. There is no tenderness over the thoracic spine or paraspinous muscles. There are muscle spasms present. The patient is slow to move around with maximum tenderness with flexion of the spine. Negative straight leg raise test bilaterally. Full ROM of the bilateral lower extremities. Strength 5/5 and equal in the bilateral lower extremities. Deep tendon reflexes 2+ in the lower extremities. Dorsalis pedis and posterior tibial pulse 2+ and equal bilaterally. NEURO: Patient was alert and oriented to person place and time. Normal sensation to light and sharp touch of the bilateral lower extremities. No focal neurological deficits. DIFFERENTIAL DIAGNOSIS: Differential diagnosis includes strain/sprain, muscle spasm, disc herniation, fracture, subluxation, metastatic disease, cord compression, discitis, sciatica, cauda equina, conus medullaris syndrome, infection, epidural abscess, epidural hematoma, aortic disease, renal colic, UTI, pyelonephritis, gastrointestinal, as well as other pathologies. ED COURSE AND MEDICAL DECISION MAKING: HISTORY FROM INDEPENDENT HISTORIAN: Additional history obtained from the patient's MEDICATIONS GIVEN: Valium 5 mg IV. Tylenol 1000 mg IV. Decadron 10 mg IV. Morphine 4 mg IV and Zofran 4 mg IV. INTERPRETATION OF LABS: I interpreted the labs with full lab results as below in the lab section of this note. Pertinent lab results discussed in the MDM section below. INTERPRETATION OF IMAGING: Imaging studies were interpreted by myself and read by radiology as per the imaging section of this note. CT scan of the lumbar spine without contrast showed expected postsurgical changes without evidence of acute fracture or abscess within the limits of a noncontrast exam. EXTERNAL RECORDS REVIEWED: I reviewed the patient's most recent admission and surgical notes as summarized above. CHRONIC MEDICAL/SOCIAL CONDITIONS AFFECTING CARE: The patient's is unable to safely help the patient with transfers and ambulation at home. CONSULTATIONS: Dr. Daley of spinal surgery. Case management. On-call hospitalist. MDM SUMMARY: I examined the patient. The patient underwent surgical decompression and fusion of L2/L3 by Dr. Daley on 11/09/2024. The patient states that he did not have much relief of his pain after the surgery and is now having severe muscle spasms on the right side of his back radiating to the right buttocks. He has been taking his oxycodone, tramadol, and Flexeril without relief. He is on his third day of a Medrol Dosepak with no real change in his symptoms other than maybe being able to sleep better. Denies any fevers or signs of infection from the incision site. Denies any red flag symptoms with no focal neurological deficits on exam. An IV lock was placed to help with pain control. The patient was given Valium 5 mg IV with significant improvement of his muscle spasms followed by Tylenol 1000 mg IV with improvement of his pain as long as he laid flat. CT scan of the lumbar spine without contrast showed expected postsurgical changes without evidence of acute fracture or abscess within the limits of a noncontrast exam. I do not suspect emergent etiology such as conus medullaris syndrome, cauda equina syndrome, epidural abscess, or epidural hematoma. I do not feel the patient requires an emergent MRI at this time. I spoke with Dr. Daley of spinal surgery who performed the patient's surgery. He stated that the patient had a large amount of muscles of the back and his muscle spasms and continued pain were to be expected in this initial postoperative period. Since the patient had improvement of the muscle spasms with IV Valium, he recommended stopping the Flexeril and starting Valium 5 mg p.o. every 8 hours at home in addition to the oxycodone and tramadol he has. He also recommended a dose of Decadron 10 mg IV in the ER followed by his Medrol Dosepak at home. He will continue to follow him up as an outpatient. I discussed this plan with the patient. The patient was still concerned about going home with his pain level. I gave the patient morphine 4 mg IV and Zofran 4 mg IV with improvement of his pain as long as he laid flat. However, with any change in position or attempt at sitting up or ambulation, he had significant pain and spasm again. Nursing staff attempted to get the patient up to go to the bathroom, but they even had difficulty ambulating the patient with a walker. The patient and his do not feel that he will be able to safely transfer and ambulate at home even with his 's help. They are concerned that he may fall at home or injure his while she is trying to help with transfers and ambulation. I spoke with case management who stated that the patient would need to be admitted prior to transfer to a rehab facility. I discussed admission with the patient prior to possible rehab facility transfer due to his ambulatory dysfunction. The patient wished to be admitted and transferred to a rehab facility if needed. I spoke with the on-call hospitalist who agreed to admit the patient for further evaluation and treatment. Please refer to their dictation for further details. The patient's care was transferred in stable condition. DIAGNOSIS: Ambulatory dysfunction Lumbar stenosis with radiculopathy status post surgical intervention Past Med/Surg History Problem List (Updated 11/18/24 @ 20:39 by Yancy Potter PA-C) Ambulatory dysfunction (Acute) Lumbosacral spondylosis with radiculopathy Intractable low back pain (Acute) Difficulty urinating Hypokalemia Dyslipidemia Hypertension Per records Hypothyroidism Type II diabetes mellitus Foraminal stenosis of lumbar region (Acute) Encounter for pre-operative examination Allergic rhinitis (Acute) Inhibited sexual excitement (Acute) Internal hemorrhoids (Acute) Lumbar radiculopathy (Acute) Vitamin D deficiency (Acute) Medical History Diverticulosis Osteoarthritis Chronic back pain Obesity Acquired deviated nasal septum Per records Patient unaware Hx of colonic polyps Fatty liver Arthritis Achilles tendinitis B/L feet, occasional flares Surgical History Hx of colonoscopy with polypectomy History of arthroplasty of left knee (07/30/23) History of carpal tunnel surgery of right wrist History of lumbar spinal fusion (~2006) History of tooth extraction Hx of laminectomy (~2011) Decompression (L5-S1) + rods/screws Family History Grandfather (Maternal) Myocardial infarction Grandfather (Paternal) Colorectal cancer Mother Prediabetes Father Prostate cancer Diabetes Denies family history of Ovarian cancer Coronary heart disease Breast cancer Lung cancer Social History Smoking Status: Never smoker Second Hand Exposure: No; Do You Dip or Chew Tobacco: No; Hx Alcohol Use: No Hx Substance Use: No Preferred Language: Malagasy Communication Ability: Effective Hearing Ability: Normal Cushion Stuffer Required: No Beliefs That Will Affect Care: None marital status: Current Living Situation: Spouse Current Living Situation Comment: lives with spouse. ~ 4 stairs to enter, able to stay on one floor current occupational status: retired Other Information That Helps Us Care for You: No Feels Safe at Home: Yes Safety Concerns: Feels Safe At This Time Childhood Exposure to Second-Hand Smoke: Yes Diet: regular caffeine: Yes Dental Care, Regularly: Yes Physical Activity Frequency: Does not Exercise Seatbelt Use: always Sunscreen Use: No Assistive Devices: Walker Allergies Allergies Allergy/AdvReac Type Severity Reaction Status Date / Time celecoxib AdvReac Mild GI symptoms Verified 11/03/24 14:37 lisinopril AdvReac Mild Cough Verified 11/03/24 14:37 Home Meds Home Medications Medication Instructions Recorded Confirmed cholecalciferol (vitamin D3) 25 1,000 units PO QAM 05/07/19 11/18/24 mcg (1,000 unit) capsule ascorbic acid (vitamin C) 500 mg 500 mg PO QAM 07/03/19 11/18/24 capsule amoxicillin 500 mg tablet 2,000 mg PO ONCE PRN dental 10/20/24 11/18/24 procedures rflsfaddousp-nsl-sufxq acid-vit 1 tab PO DAILY 10/20/24 11/18/24 K-lycop 400 mcg-20 mcg-370 mcg tablet (Men's 50 Plus Multivitamin) rosuvastatin 10 mg tablet 10 mg PO HS 10/20/24 11/18/24 sennosides 8.6 mg tablet (Senokot) 8.6 mg PO BID PRN prevent 10/20/24 11/18/24 constipation tirzepatide 5 mg/0.5 mL 5 mg subcut WK 10/20/24 11/18/24 subcutaneous pen injector vitamin B complex 1 tab PO DAILY 10/20/24 11/18/24 metformin 500 mg tablet 500 mg PO UD 11/03/24 11/18/24 methylprednisolone 4 mg tablets in 4 mg PO DIRECTED 11/18/24 11/18/24 a dose pack Previous Rx's Medication Instructions Recorded ondansetron 4 mg disintegrating 4 mg PO Q8 PRN nausea #20 tabs 07/28/23 tablet losartan 100 1 tab PO QAM #90 tabs 12/05/23 mg-hydrochlorothiazide 25 mg tablet levothyroxine 25 mcg tablet 25 mcg PO QAM #90 tabs 12/09/23 tadalafil 5 mg tablet 5 mg PO DAILY PRN sexual activity 03/30/24 #60 tabs tizanidine 2 mg tablet 2 mg PO Q8H PRN muscle spasticity 09/30/24 #30 tabs amlodipine 5 mg tablet 5 mg PO QAM #90 tabs 11/05/24 oxycodone 5 mg tablet 5 mg PO Q6H PRN pain #30 tabs 11/10/24 tramadol 50 mg tablet 50 mg PO Q6H PRN pain, moderate 11/10/24 #30 tabs cyclobenzaprine 10 mg tablet 10 mg PO Q6 PRN muscle spasm #20 11/12/24 tabs Results & Data (ED) Vital Signs Vital Signs - 24 hr 11/18/24 09:06 11/18/24 09:42 11/18/24 10:14 Temperature 36.4 C L Temperature Source Oral Pulse Rate 78 69 Pulse Rate [Apical] 71 Pulse Rate from SpO2 Sensor Respiratory Rate 20 20 Respiratory Effort / Characteristics Non-Labored Respiratory Depth Normal Blood Pressure 167/83 H Blood Pressure [Right Arm] 138/81 Blood Pressure Mean 111 Blood Pressure Mean [Right Arm] 100 Pulse Oximetry 98 94 Oxygen Delivery Method Room Air Room Air Sepsis Recent Fever Within 48 Hours No Sepsis New/Unexplained Change in Mental Status N/A Sepsis Action Taken by Nursing No Action Required 11/18/24 11:12 11/18/24 12:39 11/18/24 13:09 Temperature Temperature Source Pulse Rate 69 67 65 Pulse Rate [Apical] Pulse Rate from SpO2 Sensor 69 67 65 Respiratory Rate 18 15 12 Respiratory Effort / Characteristics Respiratory Depth Blood Pressure 122/74 139/79 119/72 Blood Pressure [Right Arm] Blood Pressure Mean 90 99 87 Blood Pressure Mean [Right Arm] Pulse Oximetry 96 97 94 Oxygen Delivery Method Sepsis Recent Fever Within 48 Hours Sepsis New/Unexplained Change in Mental Status Sepsis Action Taken by Nursing 11/18/24 13:33 11/18/24 14:21 Temperature Temperature Source Pulse Rate 65 63 Pulse Rate [Apical] Pulse Rate from SpO2 Sensor 65 64 Respiratory Rate 14 18 Respiratory Effort / Characteristics Respiratory Depth Blood Pressure 133/81 127/80 Blood Pressure [Right Arm] Blood Pressure Mean 98 95 Blood Pressure Mean [Right Arm] Pulse Oximetry 93 93 Oxygen Delivery Method Sepsis Recent Fever Within 48 Hours Sepsis New/Unexplained Change in Mental Status Sepsis Action Taken by Nursing Laboratory Data 11/18/24 09:27 11/18/24 09:27 Lab Results 11/18/24 Range/Units 09:27 WBC 9.76 (4.8-10.8) K/ul RBC 3.72 L (4.70-6.10) M/uL Hgb 11.2 L (14.0-18.0) g/dl Hct 33.7 L (42.0-52.0) % MCV 90.6 (80.0-100.0) fL MCH 30.1 (25.0-34.0) pg MCHC 33.2 (32.0-36.0) g/dL RDW Std Deviation 41.9 (36.4-46.3) fL RDW Coeff of Antelmo 12.7 (11.5-14.5) % Plt Count 376 (130-400) K/uL MPV 9.6 (9.4-12.4) fL Immature Gran % (Auto) 1.4 % Neut % (Auto) 68.4 % Lymph % (Auto) 20.5 % Warrick % (Auto) 8.9 % Eos % (Auto) 0.4 % Baso % (Auto) 0.4 % Neut # (Auto) 6.67 H (1.40-6.50) K/uL Lymph # (Auto) 2.00 (1.20-3.40) K/uL Warrick # (Auto) 0.87 H (0.11-0.59) K/uL Eos # (Auto) 0.04 (0.00-0.50) K/uL Baso # (Auto) 0.04 (0.00-0.20) K/uL Immature Gran # (Auto) 0.14 (0.01-0.20) K/uL PT 10.8 (9.0-12.0) Seconds INR 1.0 (0.9-1.1) Sodium 139 (136-145) mmol/L Potassium 4.0 (3.5-5.1) mmol/L Chloride 102 (98-107) mmol/L Carbon Dioxide 27 (21-32) mmol/L Anion Gap 10 (3-11) BUN 20 (6-23) mg/dl Creatinine 0.88 (0.6-1.4) mg/dl Est Cr Clr Drug Dosing 116.0 ml/min eGFR 96.02 BUN/Creatinine Ratio 22.7 H (10-20) Glucose 108 H (70-99(Fasting)) mg/dl Calcium 9.7 (8.6-10.3) mg/dl Total Bilirubin 0.4 (0.2-1.0) mg/dl AST 11 L (13-39) U/L ALT 11 (7-52) U/L Alkaline Phosphatase 74 (34-104) U/L Total Protein 7.0 (6.0-8.3) gm/dl Albumin 4.0 (3.4-5.0) gm/dl Globulin 3.0 (2.5-4.0) gm/dl Albumin/Globulin Ratio 1.3 (0.9-2) Administered Medications Insulin Aspart (Insulin Aspart Per Unit Charge) 0 units SC ACHS JACKIE Stop: 12/18/24 16:29 Last Admin: 11/18/24 17:06 Dose: Not Given Documented By: BRI Metformin HCl (Metformin Hcl 500 Mg Tab) 500 mg PO QDD JACKIE Stop: 12/18/24 16:29 Last Admin: 11/18/24 17:16 Dose: 500 mg Documented By: BRI Morphine Sulfate (Morphine Sulfate 2 Mg/Ml Carp) 2 mg IV Q4H PRN PRN Reason: Breakthrough pain Stop: 12/02/24 13:36 Last Admin: 11/18/24 17:18 Dose: 2 mg Documented By: BRI Discontinued Medications Dexamethasone Sodium Phosphate (DexamethasonePf 10 Mg/Ml Vial) 10 mg IV NOW ONE Stop: 11/18/24 12:07 Last Admin: 11/18/24 12:32 Dose: 10 mg Documented By: VARUN Diazepam (Diazepam 5 Mg/Ml 10ml Vial) 5 mg IV NOW STA Stop: 11/18/24 09:37 Last Admin: 11/18/24 09:55 Dose: 5 mg Documented By: HERON Acetaminophen (Ofirmev) 1,000 mg in 100 mls @ 400 mls/hr IV NOW STA Stop: 11/18/24 11:21 Last Infusion: 11/18/24 12:31 Dose: Infused Documented By: Admin: 11/18/24 11:37 Dose: 400 mls/hr Documented By: VARUN Morphine Sulfate (Morphine Sulfate 4 Mg/Ml 1 Ml Carp\Vial) 4 mg IV NOW STA Stop: 11/18/24 12:24 Last Admin: 11/18/24 12:32 Dose: 4 mg Documented By: VARUN Ondansetron HCl (Ondansetron Inj 2 Mg/Ml 2 Ml Vial) 4 mg IV NOW STA Stop: 11/18/24 12:24 Last Admin: 11/18/24 12:32 Dose: 4 mg Documented By: VARUN Imaging Data Radiologist's Impression: Lumbar Spine CT 11/18/24 09:36 CT lumbar spine wo con CLINICAL HISTORY: Back pain s/p surgery TECHNIQUE: Multidetector row helical CT of the lumbar spine was performed without administration of intravenous contrast. Coronal and sagittal reformations were obtained. Automated dose lowering techniques and/or adjustment according to patient size were utilized for this exam. CT DOSE: 1369.6 mGy.cm Comparison: Comparison is made to CT lumbar spine 11/03/2024 FINDINGS: Posterior fixation hardware spans L2-S1. No acute fractures are identified. Degenerative changes are noted in the visualized spine. There is likely severe canal stenosis at L2-L3. Vertebral body alignment is within normal limits. Mild soft tissue swelling is seen at the surgical site with subcutaneous emphysema. IMPRESSION: Expected postsurgical changes without evidence of acute fracture or abscess within the limits of a noncontrast exam. ACT 112: Negative or not required by law. Electronically signed by: Mauricio Romero M.D. 11/18/2024 10:44 AM Discharge Plan Visit Data Chief Complaint: Back Injury/Pain Stated Complaint: RECENT BACK SURG, SEVERE BACK PAIN/SPASMS ED Provider: Dejuan Acuña ED Midlevel Provider: Yancy Potter Discharge Problem: Ambulatory dysfunction, Lumbar radiculopathy, Foraminal stenosis of lumbar region Patient Disposition: Admitted As Inpatient Condition: Good Discharge Instructions Interventions: ED Discharge Assessment Last Done: 11/18/24 15:07
[2024-11-18] MEDS: diazePAM 5 MG/ML 10ML VIAL IV STA (09:55)
--- NOTE | 2024-11-18 10:46 | CT Scan Report ---
CT lumbar spine wo con CLINICAL HISTORY: Back pain s/p surgery TECHNIQUE: Multidetector row helical CT of the lumbar spine was performed without administration of i ntravenous contrast. Coronal and sagittal reformations were obtained. Automated dose lowering techniq ues and/or adjustment according to patient size were utilized for this exam. CT DOSE: 1369.6 mGy.cm Comparison: Comparison is made to CT lumbar spine 11/03/2024 FINDINGS: Posterior fixation hardware spans L2-S1. No acute fractures are identified. Degenerative changes are noted in the visualized spine. There is l ikely severe canal stenosis at L2-L3. Vertebral body alignment is within normal limits. Mild soft tis aminta swelling is seen at the surgical site with subcutaneous emphysema. IMPRESSION: Expected postsurgical changes without evidence of acute fracture or abscess within the limits of a no ncontrast exam. ACT 112: Negative or not required by law. Electronically signed by: Mauricio Romeor M.D. 11/18/2024 10:44 AM
[2024-11-18] MEDS: ACETAMINOPHEN 1,000 MG/100 ML VIAL IV STA (11:37)
[2024-11-18] MEDS: ONDANSETRON INJ 2 MG/ML 2 ML VIAL IV STA (12:32)
[2024-11-18] MEDS: MoRPHine SULFATE 4 MG/ML 1 ML CARP\\VIAL IV STA (12:32)
[2024-11-18] MEDS: dexAMETHasone**PF** 10 MG/ML VIAL IV ONE (12:32)
--- NOTE | 2024-11-18 13:13 | History & Physical Report ---
Date of Service November 18, 2024 Assessment & Plan (1) Ambulatory dysfunction: Plan: Back pain, history of bar stenosis with radiculopathy s/p surgical intervention Neurovascularly intact at time of bedside assessment. Ankle dorsiflexion/plantarflexion, hip flexion, knee extension 5/5 bilaterally. PT toes intact bilaterally. No calf swelling tenderness or edema. Sensation of soft touch is intact in the feet bilaterally. Surgical site inspected on admission. No dehiscence. No discharge erythema warmth, tenderness or fluctuance. No signs of underlying hematoma/swelling Patient with significant muscular spasms limiting ability to stand and sit, and with high fall risk as these cause him to nearly drop. CTspine with postop changes, no evidence of hematoma or abscess on noncontrasted study Continue Valium 5 mg IV daily. Can give 1 additional dose tonight. Decadron 10 mg given in ER, 6 mg daily continued. Continue Tylenol, and morphine for breakthrough. Risk of respiratory suppression with morphine/Valium were discussed with patient, hold morphine for any signs of respiratory suppression. He is alert With spasms. Valium, Decadron continued. Tylenol, breakthrough morphine on- call [facility] consulted. Reviewed with Dr. Daley by phone, agree with management above hopefully patient will improve and have good control spasms with Valium and then progress with PT/OT. (2) Type II diabetes mellitus: Plan: Type II DM Home tirzepatide has been on hold since prior to his surgical procedure, continue to hold this Metformin initially held and basal bolus SSI ordered; patient request to continue metformin if possible. BSG 108, renal function is at baseline. Will continue metformin with SSI as needed for hyperglycemia beyond goal parameters. (3) Lumbosacral spondylosis with radiculopathy: (4) Hypothyroidism: Plan: Continue Synthroid (5) Hypertension: Plan: Hypertension Continue amlodipine Continue losartanhydrochlorothiazide Plan Chronic stable issues: Hyperlipidemia: Continue statin DVT prophylaxis: Lovenox. No surgical intervention anticipated. Patient is more than 72 hours out from prior surgery. CODE STATUS: Full code Disposition: MSO Diet: Heart healthy History of Present Illness Primary Care Provider: JAMES Tatum Loyd is a 64-year-old male past medical history of lumbar stenosis with radiculopathy s/p operative intervention with Dr. Daley 11/09/2024 resents with ongoing muscle spasms and pain. No lower extremity weakness or sensory deficits on ER examination, no reported incontinence. Case was reviewed with Dr. Daley by the ER and was initially recommended for transition to Valium for spasms and potential discharge home however patient was unable to ambulate independently due to pain and muscle spasms was recommended for inpatient admission PT/OT evaluations. Patient has had progressive pain over the last week spasms down the right side of his back which limits his ability to walk, lay flat, and ambulate. Umesh reports this was his 3rd surgery. Has a history of a spinal cage, and had interventionon L1-L3. Came home last , and between last Saturday and today has had continued back spasms. Can walk once standing, but cannot get up or sit down due to severe pain and spasms cause him to drop and nearly fall. Last two back surgeries were OK, and had not had any problems with spasms like this one. Symptoms that led to most recent surgery was back pain going into his LEFT groin and into the LEFT knee. Was associated with intermittent muscle spasms worsening since the prior september. Did have initial improvement after the surgery, but was also on IV pain control. After returning home oxycodone/tramadol/flexeril was not able to control spasms which prevent him from standing and nearly cause him to fall from standing intermittently. Dramatically worse than he experienced with his first two surgeries. Medrol dose back started last 2 days did not seem to help. Did have some numbness tingling in the LLE prior to surgery, none since. None currently. Some R buttock numbness/tingling. Denies any lower extremity weakness. No saddle anesthesia. No incontinence. No fever, chills or sweats No chest pain or chest pressure No cough No leg swelling, calf swelling, or calf pain No shortness of breath No bleeding Surgical site w/. No dehiscense. No swelling. No fluctuance. No discharge. Medical History: Reviewed Medications: Reviewed Surgical History: Reviewed Family history: Reviewed Allergies: Reviewed Social History: No tobacco, norecent etoh use Code Status: Full Allergies Allergy/AdvReac Type Severity Reaction Status Date / Time celecoxib AdvReac Mild GI symptoms Verified 11/03/24 14:37 lisinopril AdvReac Mild Cough Verified 11/03/24 14:37 Home Medications Medication Instructions Recorded Confirmed Type cholecalciferol (vitamin D3) 25 1,000 units PO QAM 05/07/19 11/18/24 History mcg (1,000 unit) capsule ascorbic acid (vitamin C) 500 mg 500 mg PO QAM 07/03/19 11/18/24 History capsule ondansetron 4 mg disintegrating 4 mg PO Q8 PRN nausea #20 tabs 07/28/23 11/18/24 Rx tablet losartan 100 1 tab PO QAM #90 tabs 12/05/23 11/18/24 Rx mg-hydrochlorothiazide 25 mg tablet levothyroxine 25 mcg tablet 25 mcg PO QAM #90 tabs 12/09/23 11/18/24 Rx tadalafil 5 mg tablet 5 mg PO DAILY PRN sexual activity 03/30/24 11/18/24 Rx #60 tabs tizanidine 2 mg tablet 2 mg PO Q8H PRN muscle spasticity 09/30/24 11/18/24 Rx #30 tabs amoxicillin 500 mg tablet 2,000 mg PO ONCE PRN dental 10/20/24 11/18/24 History procedures [id number]-[id number]-[id number] acid-vit 1 tab PO DAILY 10/20/24 11/18/24 History K-lycop 400 mcg-20 mcg-370 mcg tablet (Men's 50 Plus Multivitamin) rosuvastatin 10 mg tablet 10 mg PO HS 10/20/24 11/18/24 History sennosides 8.6 mg tablet (Senokot) 8.6 mg PO BID PRN prevent 10/20/24 11/18/24 History constipation tirzepatide 5 mg/0.5 mL 5 mg subcut WK 10/20/24 11/18/24 History subcutaneous pen injector vitamin B complex 1 tab PO DAILY 10/20/24 11/18/24 History metformin 500 mg tablet 500 mg PO UD 11/03/24 11/18/24 History amlodipine 5 mg tablet 5 mg PO QAM #90 tabs 11/05/24 11/18/24 Rx oxycodone 5 mg tablet 5 mg PO Q6H PRN pain #30 tabs 11/10/24 11/18/24 Rx tramadol 50 mg tablet 50 mg PO Q6H PRN pain, moderate 11/10/24 11/18/24 Rx #30 tabs cyclobenzaprine 10 mg tablet 10 mg PO Q6 PRN muscle spasm #20 11/12/24 11/18/24 Rx tabs methylprednisolone 4 mg tablets in 4 mg PO DIRECTED 11/18/24 11/18/24 History a dose pack Past Med/Surg History Problem List (Updated 11/18/24 @ 13:35 by Shun Rosenthal MD) Ambulatory dysfunction Lumbosacral spondylosis with radiculopathy Intractable low back pain (Acute) Difficulty urinating Hypokalemia Dyslipidemia Hypertension Per records Hypothyroidism Type II diabetes mellitus Foraminal stenosis of lumbar region (Acute) Encounter for pre-operative examination Allergic rhinitis (Acute) Inhibited sexual excitement (Acute) Internal hemorrhoids (Acute) Lumbar radiculopathy (Acute) Vitamin D deficiency (Acute) Medical History Diverticulosis Osteoarthritis Chronic back pain Obesity Acquired deviated nasal septum Per records Patient unaware Hx of colonic polyps Fatty liver Arthritis Achilles tendinitis B/L feet, occasional flares Surgical History Hx of colonoscopy with polypectomy History of arthroplasty of left knee (07/30/23) History of carpal tunnel surgery of right wrist History of lumbar spinal fusion (~2006) History of tooth extraction Hx of laminectomy (~2011) Decompression (L5-S1) + rods/screws Family History Grandfather (Maternal) Myocardial infarction Grandfather (Paternal) Colorectal cancer Mother Prediabetes Father Prostate cancer Diabetes Denies family history of Ovarian cancer Coronary heart disease Breast cancer Lung cancer Social History Smoking Status: Never smoker Second Hand Exposure: No; Do You Dip or Chew Tobacco: No; Hx Alcohol Use: Yes Alcohol type: beer and hard liquor Hx Substance Use: No Preferred Language: Venezuelan Communication Ability: Effective Hearing Ability: Normal Flake Miller Helper Required: No Beliefs That Will Affect Care: None marital status: Current Living Situation: Spouse current occupational status: retired Feels Safe at Home: Yes Childhood Exposure to Second-Hand Smoke: Yes Diet: regular caffeine: Yes Dental Care, Regularly: Yes Physical Activity Frequency: Does not Exercise Seatbelt Use: always Sunscreen Use: No Assistive Devices: Walker Physical Exam Physical Exam: General: A&Ox3. NAD. Cooperative. HEENT: Atraumatic, normocephalic. Vision and hearing grossly intact Pulm: CTAB A&P. -wheezes, -rales, -rhonchi. Symmetrical chest rise. No increased work of breathing. No respiratory distress. Cardiac: RRR, -mrg. Radial pulses intact and symmetrical. Abdominal: Nontender, nondistended, soft. BS present. Spine: Surgical site clean dry and intact, Steri-Strips remain intact. No dehiscence. No discharge. No erythema. No fluctuance Extremities: Hip flexion, knee extension, ankle dorsiflexion/plantarflexion 5/5 bilaterally. Sensation soft touch intact in the thigh, calf, dorsal foot, plantar foot without deficit or asymmetry. PT pulse intact bilaterally. No lower extremity edema. No calf swelling. Results & Data Results & Data Vital Signs (Past 12 Hours) Vital Signs Temp Pulse Pulse Resp BP BP Pulse Ox 11/18/24 11:12 69 18 122/74 96 11/18/24 10:14 71 20 138/81 94 11/18/24 09:42 69 11/18/24 09:06 36.4 C L 78 20 167/83 H 98 O2 Del Method 11/18/24 11:12 11/18/24 10:14 Room Air 11/18/24 09:42 11/18/24 09:06 Room Air PG Care Time/CCT Total # of Minutes Spent Total Time Spent with Patient: Total time spent is greater than 50% in coordination of care (as documented) at patient's floor/unit and/or counseling patient: Coding Level of Care Code 74372 INT INP/OBS CARE 2/55MIN Diagnoses Ambulatory dysfunction R26.2 Type II diabetes mellitus E11.9 Lumbosacral spondylosis with radiculopathy M47.27 Hypothyroidism E03.9 Hypertension I10
[2024-11-18] MEDS ORDERED: ACETAMINOPHEN 325 MG TAB PO PRN (13:37)
[2024-11-18] MEDS ORDERED: GLUCAGON FOR INJ 1 MG VIAL SQ PRN (13:39)
[2024-11-18] MEDS ORDERED: DEXTROSE 50% 50 ML SYRINGE IV PRN (13:39)
[2024-11-18] MEDS ORDERED: ONDANSETRON INJ 2 MG/ML 2 ML VIAL IV PRN (13:39)
[2024-11-18] MEDS ORDERED: GLUCOSE 40% GEL 15 GM TUBE PO PRN (13:39)
[2024-11-18] MEDS ORDERED: GLUCOSE 10 TAB/TUBE PO PRN (13:39)
[2024-11-18] MEDS ORDERED: CARBOHYDRATES FOR HYPOGLYCEMIA PO PRN (13:39)
[2024-11-18 13:42] LABS: Prothrombin Time 10.8 Seconds (9.0-12.0)
[2024-11-18 13:44] LABS: Basophils # (auto) 0.04 K/uL (0.00-0.20); Basophils % (auto) 0.4 %; Eosinophils # (auto) 0.04 K/uL (0.00-0.50); Eosinophils % (auto) 0.4 %; Hematocrit (blood only) 33.7 % (42.0-52.0); Hemoglobin 11.2 g/dl (14.0-18.0); Immature Granulocytes # (auto) 0.14 K/uL (0.01-0.20); Immature Granulocytes % (auto) 1.4 %; Lymphocytes % (auto) 20.5 %; Mean Corpuscular Hemoglobin 30.1 pg (25.0-34.0); Mean Corpuscular Hgb Conc 33.2 g/dL (32.0-36.0); Mean Corpuscular Volume 90.6 fL (80.0-100.0); Mean Platelet Volume 9.6 fL (9.4-12.4); Monocytes # (auto) 0.87 K/uL (0.11-0.59); Monocytes % (auto) 8.9 %; Neutrophils # (auto) 6.67 K/uL (1.40-6.50); Neutrophils % (auto) 68.4 %; Platelet Count 376 K/uL (130-400); RDW Coefficient of Variation 12.7 % (11.5-14.5); RDW Standard Deviation 41.9 fL (36.4-46.3); Red Blood Count 3.72 M/uL (4.70-6.10); White Blood Count 9.76 K/ul (4.8-10.8)
[2024-11-18 13:47] LABS: Albumin Globulin Ratio 1.3 (0.9-2); BUN Creatinine Ratio 22.7 (10-20); Bilirubin,Total 0.4 mg/dl (0.2-1.0); Calcium 9.7 mg/dl (8.6-10.3)
[2024-11-18] MEDS ORDERED: SENNA 8.6 MG TAB PO PRN (14:49)
[2024-11-18 15:56] LABS: Appearance Urine Clear (Clear); Bilirubin Urine Negative (Negative); Blood Urine Negative (Negative); Color Urine Yellow; Glucose Urine UA Negative (Negative); Ketones Urine Negative (Negative); Leukocyte Esterase Urine Negative (Negative); Nitrite Urine Negative (Negative); Protein Urine Negative (Negative); Specific Gravity Urine 1.014 (1.000-1.030); Urobilinogen Urine Negative (Negative); pH Urine 6.5 (4.5-7.5)
[2024-11-18] MEDS ORDERED: INSULIN ASPART PER UNIT CHARGE SC SCH (16:30)
[2024-11-18 16:33] VITALS: RESP 16
[2024-11-18] MEDS: INSULIN ASPART PER UNIT CHARGE SC SCH (17:06)
[2024-11-18] MEDS: metFORMIN HCL 500 MG TAB PO SCH (17:16)
[2024-11-18] MEDS: MoRPHine SULFATE 2 MG/ML CARP IV PRN (17:18)
[2024-11-18 20:25] VITALS: O2SAT 96
[2024-11-18] MEDS: ROSUVASTATIN CALCIUM 10 MG TAB PO SCH (20:34)
[2024-11-18] MEDS ORDERED: diazePAM 5 MG/ML 10ML VIAL IV PRN (21:00)
[2024-11-19] MEDS: LEVOTHYROXINE SODIUM 25 MCG TABLET PO SCH (05:44)
[2024-11-19 07:37] VITALS: BP 174/77; TEMP 98.1
[2024-11-19 08:26] LABS: Basophils # (auto) 0.07 K/uL (0.00-0.20); Basophils % (auto) 0.7 %; Eosinophils # (auto) 0.04 K/uL (0.00-0.50); Eosinophils % (auto) 0.4 %; Hematocrit (blood only) 32.2 % (42.0-52.0); Hemoglobin 10.9 g/dl (14.0-18.0); Immature Granulocytes # (auto) 0.16 K/uL (0.01-0.20); Immature Granulocytes % (auto) 1.7 %; Lymphocytes # (auto) 2.34 K/uL (1.20-3.40); Lymphocytes % (auto) 24.5 %; Mean Corpuscular Hemoglobin 30.4 pg (25.0-34.0); Mean Corpuscular Hgb Conc 33.9 g/dL (32.0-36.0); Mean Corpuscular Volume 89.9 fL (80.0-100.0); Mean Platelet Volume 9.2 fL (9.4-12.4); Monocytes # (auto) 1.01 K/uL (0.11-0.59); Monocytes % (auto) 10.6 %; Neutrophils # (auto) 5.92 K/uL (1.40-6.50); Neutrophils % (auto) 62.1 %; Platelet Count 340 K/uL (130-400); RDW Coefficient of Variation 12.6 % (11.5-14.5); RDW Standard Deviation 41.8 fL (36.4-46.3); Red Blood Count 3.58 M/uL (4.70-6.10); White Blood Count 9.54 K/ul (4.8-10.8)
[2024-11-19] MEDS: traMADol HCL 50 MG TABLET PO PRN (08:32)
[2024-11-19] MEDS: LOSARTAN/HCTZ 50/12.5MG TAB PO SCH (08:32)
[2024-11-19] MEDS: VITAMIN B COMPLEX TAB PO SCH (08:32)
[2024-11-19] MEDS: CEROVITE ADV FORMULA TAB PO SCH (08:32)
[2024-11-19] MEDS: metFORMIN HCL 500 MG TAB PO SCH (08:33)
[2024-11-19] MEDS: CHOLECALCIFEROL 25 MCG (1000 UNITS) TAB PO SCH (08:34)
[2024-11-19] MEDS: dexAMETHasone 4 MG TAB PO SCH (08:34)
[2024-11-19] MEDS: amLODIPine BESYLATE 5 MG TAB PO SCH (08:34)
[2024-11-19] MEDS: ENOXAPARIN INJ 40 MG/0.4 ML SYR SQ SCH (08:34)
[2024-11-19] MEDS ORDERED: diazePAM 5 MG TABLET PO PRN (08:47)
[2024-11-19 08:49] LABS: BUN Creatinine Ratio 23.6 (10-20); Calcium 9.4 mg/dl (8.6-10.3); Creatinine Clr Calc Pharmacy 114.7 ml/min; Potassium 3.7 mmol/L (3.5-5.1)
--- NOTE | 2024-11-19 08:56 | Orthopedic Progress Note ---
Date of Service November 19, 2024 Assessment & Plan (1) Ambulatory dysfunction: Plan: Patient was admitted yesterday due to intractable back pain and spasms. They have resolved with Valium. He is orthopedically stable for discharge. He will follow-up at his scheduled appointment postoperatively Admission and Anticipated Discharge Date Admission Date: November 18, 2024 Subjective Patient presented to the ER yesterday with increasing pain and spasms. Today he states they have resolved. Pain under better control. He wants to go home today. No other complaints. Review of Systems Review of Systems: All systems reviewed & are unremarkable except as noted in HPI & below Physical Exam Physical Exam: Laying in bed in no acute distress alert and oriented x 3 Incision benign strength intact bilateral lower extremities Results & Data Vital Signs (Past 12 Hours) Vital Signs Temp Pulse Resp BP Pulse Ox O2 Del Method 11/19/24 07:36 36.7 C 70 16 174/77 H 96 Room Air
[2024-11-19] MEDS ORDERED: diazePAM 5 MG/ML 10ML VIAL IV ONE (09:00)
[2024-11-19] MEDS ORDERED: LANTUS PER UNIT CHARGE SQ SCH (09:00)
[2024-11-19] MEDS: diazePAM 5 MG TABLET PO ONE (09:04)
--- NOTE | 2024-11-19 10:36 | Discharge Summary ---
Discharge Summary Date of Service November 19, 2024 Principal Dx & Hospital Course #1 = Principal Diagnosis (1) Ambulatory dysfunction: Back pain, history of bar stenosis with radiculopathy s/p surgical intervention with Dr. Daley 11/09 CTspine with postop changes, no evidence of hematoma or abscess on noncontrasted study Neurovascularly intact at time of bedside assessment. Strength intact. Surgical site inspected on admission. No dehiscence. No discharge erythema warmth, tenderness or fluctuance. No signs of underlying hematoma/swelling Ortho spine consulted - no plan for surgical intervention. Spasms well controlled with valium, stable for d/c and outpatient follow up Spams well controlled with Valium - will give a few tabs for PO control until follow up. Tramadol also refilled. - Cautioned with using valium and oxy/tramadol - instructed not to use valium with tizanidine or cyclobenzaprine D/c to home today (2) Type II diabetes mellitus: Home tirzepatide has been on hold since prior to his surgical procedure, continue to hold this continue Mefotmin, BSG well controlled with this even on steroids (3) Lumbosacral spondylosis with radiculopathy: (4) Hypothyroidism: Continue Synthroid (5) Hypertension: Hypertension Continue amlodipine Continue losartanhydrochlorothiazide Plan Chronic stable issues: Hyperlipidemia: Continue statin Dispo: discharge to home today Admission HPI Per Admitting Provider Loyd is a 64-year-old male past medical history of lumbar stenosis with radiculopathy s/p operative intervention with Dr. Daley 11/09/2024 resents with ongoing muscle spasms and pain. No lower extremity weakness or sensory deficits on ER examination, no reported incontinence. Case was reviewed with Dr. Daley by the ER and was initially recommended for transition to Valium for spasms and potential discharge home however patient was unable to ambulate independently due to pain and muscle spasms was recommended for inpatient admission PT/OT evaluations. Patient has had progressive pain over the last week spasms down the right side of his back which limits his ability to walk, lay flat, and ambulate. Umesh reports this was his 3rd surgery. Has a history of a spinal cage, and had interventionon L1-L3. Came home last , and between last Saturday and today has had continued back spasms. Can walk once standing, but cannot get up or sit down due to severe pain and spasms cause him to drop and nearly fall. Last two back surgeries were OK, and had not had any problems with spasms like this one. Symptoms that led to most recent surgery was back pain going into his LEFT groin and into the LEFT knee. Was associated with intermittent muscle spasms worsening since the prior september. Did have initial improvement after the surgery, but was also on IV pain control. After returning home oxycodone/tramadol/flexeril was not able to control spasms which prevent him from standing and nearly cause him to fall from standing intermittently. Dramatically worse than he experienced with his first two surgeries. Medrol dose back started last 2 days did not seem to help. Did have some numbness tingling in the LLE prior to surgery, none since. None currently. Some R buttock numbness/tingling. Denies any lower extremity weakness. No saddle anesthesia. No incontinence. No fever, chills or sweats No chest pain or chest pressure No cough No leg swelling, calf swelling, or calf pain No shortness of breath No bleeding Surgical site w/. No dehiscense. No swelling. No fluctuance. No discharge. Medical History: Reviewed Medications: Reviewed Surgical History: Reviewed Family history: Reviewed Allergies: Reviewed Social History: No tobacco, norecent etoh use Code Status: Full Discharge Exam General: NAD, VS as above, lying in bed appears well Resp: normal respiratory effort, lungs clear to auscultation CV: RRR, no murmur, Abd: normal bowel sounds, non tender, no hepatosplenomegaly Extremities: Moves all extremities, no spams at this time. reports has been able to ambulate without issue Neuro: A&O x3, Skin: intact, no lesions noted Discharge Plan Discharge Items Patient Disposition: Home - Self-Care Reason For Visit: BACK PAIN Discharge Diagnosis: Back Spasms Condition on Discharge: Good Activity: Resume your previous activity Weightbearing: Full weightbearing Non-emergency contact: Primary Care Provider and Specialist Call non-emergency contact if: you have any medication questions, your symptoms worsen, your pain is not controlled and your pain is worsening Follow-up/Referrals: Regine Paul CRNP [Primary Care Provider] - Loyd Daley DO [Surgeon] - (Keep follow up appointment scheduled 11/30) Diet: Carb Consistent or DM2 Addtl Attending Provider Instructions: Mr. Allen, You were hospitalized after having worsening back spasms. Thankfully this has gotten better with valium and steroids. You will be discharged with a small amount of valium and a refill on the tramadol. Continue to follow the spine precautions you were given at last discharge. You should continue the steroid pack that you have at home. Do not drive while taking the Valium. Be careful taking the Valium at the same time as oxycodone or tramadol as they both can be sedating/cause respiratory depression. If you are taking Valium do NOT take the tizanidine or cyclobenzaprine. You can also taken Tylenol for pain. Follow up with Dr. Daley as scheduled. Recommended to see your PCP within 7-10 days. No changes to your home medications. Thank you for allowing us to participate in your care, happy holidays! Libia Mckenzie PA-C Pending Studies at Discharge: No Stand-Alone Forms: [facility] Medications and DC Order Prescriptions: New diazepam [Valium] 5 mg tablet 5 mg PO BID PRN (Reason: spasms) Qty: 10 0RF Continued ondansetron 4 mg tablet,disintegrating 4 mg PO Q8 PRN (Reason: nausea) Qty: 20 1RF Rx Instructions: Take as needed for nausea losartan-hydrochlorothiazide 100-25 mg tablet 1 tab PO QAM Qty: 90 3RF levothyroxine 25 mcg tablet 25 mcg PO QAM Qty: 90 3RF tadalafil 5 mg tablet 5 mg PO DAILY PRN (Reason: sexual activity) Qty: 60 5RF tizanidine 2 mg tablet 2 mg PO Q8H PRN (Reason: muscle spasticity) Qty: 30 0RF amlodipine 5 mg tablet 5 mg PO QAM Qty: 90 3RF cholecalciferol (vitamin D3) 1,000 unit capsule 1,000 units PO QAM ascorbic acid (vitamin C) 500 mg capsule 500 mg PO QAM sennosides [Senokot] 8.6 mg tablet 8.6 mg PO BID PRN (Reason: prevent constipation) Rx Instructions: Take two times a day to prevent/treat constipation amoxicillin 500 mg tablet 2,000 mg PO ONCE PRN (Reason: dental procedures) Rx Instructions: 4 tabs 1 hour prior to procedure rosuvastatin 10 mg tablet 10 mg PO HS tirzepatide 5 mg/0.5 mL pen injector 5 mg subcut WK Rx Instructions: 5 mg subcutaneously once weekly; Saturday vitamin B complex Tablet 1 tab PO DAILY Men's 50 Plus Multivitamin 400-20-370 mcg Tablet 1 tab PO DAILY metformin 500 mg tablet 500 mg PO UD Rx Instructions: Take 1,000 mg PO in AM and 500mg PO in QPM oxycodone 5 mg tablet 5 mg PO Q6H PRN (Reason: pain) Qty: 30 0RF cyclobenzaprine 10 mg Tablet 10 mg PO Q6 PRN (Reason: muscle spasm) Qty: 20 0RF methylprednisolone 4 mg tablets,dose pack 4 mg PO DIRECTED tramadol 50 mg tablet 50 mg PO Q6H PRN (Reason: pain, moderate) Qty: 12 0RF Discharge Orders: Discharge Order (Routine); Ordered 11/19/24 Ordered By: Libia Mckenzie Admission Data Admit Date/Time: 11/18/24 14:31 Attending Provider: Caesar Morel Admit Provider: Shun Rosenthal Primary Care Provider: Regine Paul Other Providers: Shun Rosenthal Hospital Stay Data Consultations 11/18/24 13:06 ED Decision to Admit Stat Diagnostic Imagining Performed Lumbar Spine CT 11/18/24 09:36 CT lumbar spine wo con CLINICAL HISTORY: Back pain s/p surgery TECHNIQUE: Multidetector row helical CT of the lumbar spine was performed without administration of intravenous contrast. Coronal and sagittal reformations were obtained. Automated dose lowering techniques and/or adjustment according to patient size were utilized for this exam. CT DOSE: 1369.6 mGy.cm Comparison: Comparison is made to CT lumbar spine 11/03/2024 FINDINGS: Posterior fixation hardware spans L2-S1. No acute fractures are identified. Degenerative changes are noted in the visualized spine. There is likely severe canal stenosis at L2-L3. Vertebral body alignment is within normal limits. Mild soft tissue swelling is seen at the surgical site with subcutaneous emphysema. IMPRESSION: Expected postsurgical changes without evidence of acute fracture or abscess within the limits of a noncontrast exam. ACT 112: Negative or not required by law. Electronically signed by: Mauricio Romero M.D. 11/18/2024 10:44 AM Pending Results Patient Have Any Pending Studies at Discharge: No Discharge Instructions Given to Patient (Per Discharging Provider) Mr. Allen, You were hospitalized after having worsening back spasms. Thankfully this has gotten better with valium and steroids. You will be discharged with a small amount of valium and a refill on the tramadol. Continue to follow the spine precautions you were given at last discharge. You should continue the steroid pack that you have at home. Do not drive while taking the Valium. Be careful taking the Valium at the same time as oxycodone or tramadol as they both can be sedating/cause respiratory depression. If you are taking Valium do NOT take the tizanidine or cyclobenzaprine. You can also taken Tylenol for pain. Follow up with Dr. Daley as scheduled. Recommended to see your PCP within 7-10 days. No changes to your home medications. Thank you for allowing us to participate in your care, happy holidays! Libia Mckenzie PA-C Total Time Total Time Spent Total Time Spent (In Minutes): Time spent day of discharge 35 minutes including direct patient care, medication reconciliation, documentation, review of labs and images, and coordination of care. Coding Level of Care Code 98036 INP/OBS DISCH >30 MIN Diagnoses Ambulatory dysfunction R26.2 Type II diabetes mellitus E11.9 Lumbosacral spondylosis with radiculopathy M47.27 Hypothyroidism E03.9 Hypertension I10
[2024-11-19 10:50] VITALS: PULSE 71
== END 2024-11-19 11:29 | disposition home or self-care (01) | DRG 948 ==
LOC: ED 09:04 → SUATTDRO 14:31 → EDINP 14:31 → 3W 15:07
DX: I10 Essential (primary) hypertension; Z88.6 Allergy status to analgesic agent; E11.9 Type 2 diabetes mellitus without complications; M47.26 Other spondylosis with radiculopathy, lumbar region; M62.830 Muscle spasm of back; G89.18 Other acute postprocedural pain; Z79.84 Long term (current) use of oral hypoglycemic drugs; Z88.8 Allergy status to other drugs, medicaments and biological substances; Z79.899 Other long term (current) drug therapy; E78.5 Hyperlipidemia, unspecified; Z79.890 Hormone replacement therapy; E03.9 Hypothyroidism, unspecified